=== PATIENT | male | born 2000 | race Caucasian/White ===

== ENCOUNTER 2023-06-14 22:58 | Emergency (ER) | payer OTHER, SELFPAY ==
[2023-06-14] VITALS (10 sets, daily range): BP systolic 136–146; BP diastolic 78–93; PULSE 62–99; RESP 13–19; TEMP 36.8; O2SAT 98–100; BMI 26.6
--- NOTE | 2023-06-14 23:22 | ED_ITS ---
HPI - Dizziness General Chief Complaint: Dizziness Stated Complaint: DIZZY ABD PAIN Time Seen by Provider: 06/14/23 23:14 Source: patient Mode of arrival: walk-in Limitations: no limitations History of Present Illness HPI Narrative: patient states in 2019 he loss vision. Was seen at [facility] in [place] and required surgery . States there was extra fluid in his brain and a procedure was performed involving his ventricles. Has no PCP. States he has been experiencing episodes of black out with vision loss and even fainting. States tonight episode of vertigo while at work. States job advised him to be evaluated. He drove here from work. He is less dizzy now. No headache or chest pain. States he now also has a migraine MD elicited complaint: Reports dizziness Related Data Home Medications Medication Instructions Recorded Confirmed No Known Home Medications 06/14/23 06/14/23 Allergies Allergy/AdvReac Type Severity Reaction Status Date / Time No Known Drug Allergies Allergy Verified 06/14/23 23:03 Review of Systems ROS Status of ROS 10 or more systems reviewed and unremarkable except as noted in history and below Exam Constitutional Vital Signs, click to edit/add: Last Vital Signs Temp 98.3 F 06/14/23 23:03 Pulse 62 06/14/23 23:50 Resp 19 06/14/23 23:50 BP 126/72 06/15/23 01:32 Pulse Ox 98 06/15/23 01:32 O2 Del Method Room Air 06/14/23 23:03 Common normals: no apparent distress, average body habitus, oriented x3, no limitations, healthy appearing, alert and well nourished Eye Common normals: PERRL, EOMs intact bilaterally and conjunctivae normal Respiratory Common normals: normal respiratory effort, no retractions, no use of accessory muscles and clear to auscultation bilaterally Cardio Common normals: regular rate, regular rhythm, S1 normal heart sound and S2 normal heart sound Extremity Common normals: normal to inspection and full ROM Neuro Common normals: oriented x3, CN's II-XII intact bilaterally, moves all extremities, no focal motor deficits and no sensory deficits noted Psych Appearance: grossly normal Course Vital Signs Vital signs: Vital Signs Temperature 98.3 F 06/14/23 23:03 Pulse Rate 75 06/14/23 23:03 Respiratory Rate 17 06/14/23 23:03 Blood Pressure 146/93 H 06/14/23 23:03 Pulse Oximetry 100 06/14/23 23:03 Oxygen Delivery Method Room Air 06/14/23 23:03 Temperature 98.3 F 06/14/23 23:03 Pulse Rate 62 06/14/23 23:50 Respiratory Rate 19 06/14/23 23:50 Blood Pressure 126/72 06/15/23 01:32 Pulse Oximetry 98 06/15/23 01:32 Oxygen Delivery Method Room Air 06/14/23 23:03 MDM - Dizziness MDM Narrative Medical decision making narrative: patient describes episodes of black out and fainting. normal EKG. He describes loosing vision 2019 require surgical procedure to his brain to remove fluid. History of episodes of vertigo on and off over the past few weeks. Vertigo again tonight and left work to come to the ER. Admits vertigo better now that he is here but he also has a migraine. exam neg. CT brain with evidence of mild enlargement of lateral and 3rd ventricles. Radiologist recommends nonemergent MRI brain. Patient also found to have hypomagnesemia. Magnesium supplemented. Vertigo resolved spontaneously. Patient given a prescription for antivert and discharged. Advised to follow up with Neurology Lab Data Labs: Lab Results 06/14/23 06/15/23 Range/Units 23:08 00:07 WBC 5.7 (4.0-11.0) 10^3/uL RBC 4.76 (4.70-6.10) 10^6/uL Hgb 14.3 (14.0-18.0) g/dL Hct 41.1 L (42.0-54.0) % MCV 86.3 (80.0-94.0) fL MCH 30.0 (25.9-34.0) pg MCHC 34.8 (29.9-35.2) g/dL RDW 12.3 (11.0-15.0) % Plt Count 192 (150-450) 10^3/uL MPV 9.6 (9.5-13.5) fL Neut % (Auto) 65.6 (43.0-75.0) % Lymph % (Auto) 26.0 (20.5-60.0) % [place] % (Auto) 4.7 (1.7-12.0) % Eos % (Auto) 2.8 (0.9-7.0) % Baso % (Auto) 0.7 (0.2-2.0) % Neut # (Auto) 3.8 (1.4-6.5) 10^3/uL Lymph # (Auto) 1.5 (1.2-3.8) 10^3/uL [place] # (Auto) 0.3 (0.3-0.8) 10^3/uL Eos # (Auto) 0.2 (0.0-0.7) 10^3/uL Baso # (Auto) 0.0 (0.0-0.1) 10^3/uL Abs Immat Gran (auto) 0.01 (0.00-0.03) 10^3/uL Imm/Tot Granulo (auto) 0.2 (0.0-0.5) % Sodium 139 (136-145) mmol/L Potassium 4.1 (3.5-5.1) mmol/L Chloride 104 (98-107) mmol/L Carbon Dioxide 28.6 (21.0-32.0) mmol/L Anion Gap 10.5 BUN 13.0 (7.0-18.0) mg/dL Creatinine 1.03 (0.70-1.30) mg/dL Est GFR ( Amer) >60 (>=60) Est GFR (Non-Af Amer) >60 (>=60) BUN/Creatinine Ratio 12.6 Glucose 91 (74-106) mg/dL Calcium 8.9 (8.5-10.1) mg/dL Magnesium 1.7 L (1.8-2.4) mg/dL Total Bilirubin 1.2 H (0.2-1.0) mg/dL AST 15 (15-37) U/L ALT 28 (16-63) U/L Alkaline Phosphatase 49 (46-116) U/L Total Protein 7.5 (6.4-8.2) g/dL Albumin 4.1 (3.4-5.0) g/dL Globulin 3.4 g/dL Albumin/Globulin Ratio 1.2 Urine Color Lt. yellow (YELLOW) Urine Clarity Clear (CLEAR) Urine pH 7.0 (5.0-9.0) Ur Specific [place] 1.020 (1.005-1.025) Urine Protein Negative (NEG/TRACE) mg/dL Urine Glucose (UA) Negative (NEGATIVE) mg/dL Urine Ketones Negative (NEGATIVE) mg/dL Urine Occult Blood Negative (NEGATIVE) Urine Nitrite Negative (NEGATIVE) Urine Bilirubin Negative (NEGATIVE) Urine Urobilinogen 0.2 (0.2-1.0) EU/dL Ur Leukocyte Esterase Negative (NEGATIVE) Urine Opiates Screen Negative (NEGATIVE) Ur Buprenorphine Scrn Negative (NEGATIVE) Ur Oxycodone Screen Negative (NEGATIVE) Urine Methadone Screen Negative (NEGATIVE) Ur Barbiturates Screen Negative (NEGATIVE) U Tricyclic Antidepress Negative (NEGATIVE) Ur Phencyclidine Scrn Negative (NEGATIVE) Ur Amphetamines Screen Negative (NEGATIVE) U Methamphetamines Scrn Negative (NEGATIVE) U Benzodiazepines Scrn Negative (NEGATIVE) Urine Cocaine Screen Negative (NEGATIVE) U Cannabinoids Screen Positive A (NEGATIVE) Imaging Data CT scan - head: Radiologist's impression: The [address] [address] Patient Name: KALA WATTERS MRN: [facility]:[id number] date: 2000 Sex: M Assigned Patient Location: Current Patient Location: Accession/Order Number: [id number] Exam Date: 06/14/2023 23:55 Report Date: 06/15/2023 00:07 At the request of: GARLAND VALDEZ Procedure: CT head/brain wo con INDICATION: 23 years old; Male. Memory difficulties for one week. TECHNIQUE: CT Head (ax/cor/sag reformats). Ionizing radiation dose reduced via iterative reconstruction/FBP blend and body size kV/mA adjustment. Comparison: None FINDINGS: POSTOPERATIVE CHANGES: None. BRAIN PARENCHYMA: No focal lesions. No mass effect. No midline shift or herniation. No intraparenchymal or extra-axial hemorrhage. Normal kat/white differentiation. There is a linear focus of CSF density which extends from the frontal horn of the right lateral ventricle into the subcortical white matter of the right frontal lobe. This is nonspecific. This has a developmental appearance. VENTRICLES/EXTRA-AXIAL SPACES: The lateral and third ventricles are enlarged out of proportion the size the cortical sulci. No transependymal spread of CSF is seen. This is a nonspecific finding. Cortical sulci aren't normal in size. Basilar cisterns are normal in size. SINUSES/MASTOIDS: The visualized sinuses are clear. The sinuses are not entirely visible in this routine CT of the head. Mastoids and middle ears are clear. MSK: No displaced or depressed calvarial fracture. OTHER: No hyperdense intraluminal thrombus. CT/CT head/brain wo con IMPRESSION: 1. No acute intracranial abnormality. No hemorrhage or mass effect. 2. Linear focus of CSF density in the subcortical white matter on the right frontal lobe extending down to the frontal horn of the right lateral ventricle. This has a developmental appearance. The lateral and third ventricles are enlarged out of proportion to the cortical sulci which is a nonspecific finding. Consider nonemergent follow-up with MRI. Electronically authenticated by: MARTIN MURDOCK Date: 06/15/2023 00:07 Dictated By: Martin Murdock M.D. Signed By: Discharge Plan Discharge Chief Complaint: Dizziness Clinical Impression: Benign paroxysmal positional vertigo, Hypomagnesemia Patient Disposition: Home, Self-Care Prescriptions / Home Meds: No Action No Known Home Medications Instructions: Vertigo (ED), Hypomagnesemia (ED) Additional Instructions: follow up with Neurology Stand Alone Forms: Portal Instructions Referrals: Physician,Non-Staff, MD [Primary Care Provider] - 1 week Discharge Date/Time: 06/15/23 01:37
[2023-06-14 23:26] LABS: Basophils Percent Auto 0.7 % (0.2-2.0); Eosinophils Absolute Auto 0.2 10^3/uL (0.0-0.7); Eosinophils Percent Auto 2.8 % (0.9-7.0); Hematocrit 41.1 % (42.0-54.0); Hemoglobin 14.3 g/dL (14.0-18.0); Immature Granulocytes Abs Auto 0.01 10^3/uL (0.00-0.03); Immature Granulocytes Pct Auto 0.2 % (0.0-0.5); Lymphocytes Absolute Auto 1.5 10^3/uL (1.2-3.8); Mean Corpuscular HGB Conc 34.8 g/dL (29.9-35.2); Mean Corpuscular Volume 86.3 fL (80.0-94.0); Mean Platelet Volume 9.6 fL (9.5-13.5); Monocytes Absolute Auto 0.3 10^3/uL (0.3-0.8); Monocytes Percent Auto 4.7 % (1.7-12.0); Neutrophils Absolute Auto 3.8 10^3/uL (1.4-6.5); Neutrophils Percent Auto 65.6 % (43.0-75.0); Platelet Count 192 10^3/uL (150-450); Red Blood Count 4.76 10^6/uL (4.70-6.10); Red Cell Distribution Width 12.3 % (11.0-15.0); White Blood Count 5.7 10^3/uL (4.0-11.0)
--- NOTE | 2023-06-14 23:30 | ECG_ITS ---
[facility] Test Date: 2023-06-14 Pat Name: KALA WATTERS Department: Room: - Gender: Male Cardiology Rn: : 2000 Requested By: Order Number: [id number] Reading MD: CHELO VIDAL Measurements Intervals [place] Rate: 73 P: 45 WV: 134 QRS: 82 QRSD: 76 T: 76 QT: 346 QTc: 373 Interpretive Statements 1100 Sinus rhythm 1102 Sinus arrhythmia 9110 normal ECG No previous ECG available for comparison Electronically Signed On 06-16-2023 7:06:52 EST by CHELO VIDAL
[2023-06-14] MEDS: 0.9 % SODIUM CHLORIDE 1,000 ML 999 ML IV (23:36)
[2023-06-14 23:37] LABS: Alanine Aminotransferase 28 U/L (16-63); Albumin Globulin Ratio 1.2; Albumin Level 4.1 g/dL (3.4-5.0); Alkaline Phosphatase 49 U/L (46-116); Anion Gap 10.5; Aspartate Amino Transferase 15 U/L (15-37); BUN Creatinine Ratio 12.6; Bilirubin Total 1.2 mg/dL (0.2-1.0); Calcium 8.9 mg/dL (8.5-10.1); Carbon Dioxide 28.6 mmol/L (21.0-32.0); Chloride 104 mmol/L (98-107); Estimated GFR (African America >60 (>=60); Estimated GFR (Non-African Ame >60 (>=60); Globulin 3.4 g/dL; Glucose 91 mg/dL (74-106); Potassium 4.1 mmol/L (3.5-5.1); Sodium 139 mmol/L (136-145); Total Protein 7.5 g/dL (6.4-8.2)
[2023-06-14 23:46] LABS: Magnesium 1.7 mg/dL (1.8-2.4)
[2023-06-15 00:20] LABS: Bilirubin Urine NEGATIVE (NEGATIVE); Blood Urine NEGATIVE (NEGATIVE); Clarity Urine CLEAR (CLEAR); Color Urine LT. YELLOW (YELLOW); Glucose Urine UA NEGATIVE (NEGATIVE); Ketones Urine NEGATIVE (NEGATIVE); Leukocyte Esterase Urine NEGATIVE (NEGATIVE); Nitrite Urine NEGATIVE (NEGATIVE); Protein Urine NEGATIVE (NEG/TRACE); Urine Microscopic Indicated NO; Urobilinogen Urine 0.2 EU/dL (0.2-1.0)
[2023-06-15 00:28] LABS: Amphetamine Screen Urine NEGATIVE (NEGATIVE); Barbiturates Screen Urine NEGATIVE (NEGATIVE); Benzodiazepines Screen Urine NEGATIVE (NEGATIVE); Buprenorphine Screen Urine NEGATIVE (NEGATIVE); Cannabinoid Screen Urine POSITIVE (NEGATIVE); Cocaine Screen Urine NEGATIVE (NEGATIVE); Methadone Screen Urine NEGATIVE (NEGATIVE); Methamphetamines Screen Urine NEGATIVE (NEGATIVE); Opiate Screen Urine NEGATIVE (NEGATIVE); Oxycodone Screen Urine NEGATIVE (NEGATIVE); Phencyclidine Screen Urine NEGATIVE (NEGATIVE); Tricyclic Antidepressant Urine NEGATIVE (NEGATIVE)
[2023-06-15] MEDS: MAGNESIUM SULFATE IN WATER 2 GM/50 ML PREMIX IV (00:41)
[2023-06-15 01:32] VITALS: BP 126/72; O2SAT 98
--- OUTSIDE RECORDS SUMMARY | 2023-07-21 17:04 | XMS_ITS | CCD ---
Author Name Unknown Address [address] [place] [address] Organization [facility] Care Team Providers Care Night Time Nanny Name Role Phone Unavailable Primary Care Provider UnavailGORGE Musa Attending Unavailable MARIELA DRAKE Attending Unavailable WILLIAM DEL CASTILLO Attending Unavailable AIDA MASTERS Attending Unavailable NO FAMILY, PHYSICIAN Primary Care Provider Unava MD Aida Sousa Emergency Provider Aida William Attending Unavailable Aida William Admitting Unavailable NO FAMILY, PHYSICIAN Primary Care Unavailable Medications Current Medications Medication Drug Class(es) Dates Sig (Normalized) Sig (Original) emtricitabine 200 mg / tenofovir disoproxil fumarate 300 mg oral tablet (4 sources) Human Immunodeficiency Virus Nucleoside Analog Reverse Transcriptase Inhibitor Start: 11-18-2021 take 1 tablet by mouth once daily Truvada 200-300 MG tablet Take 1 tablet by mouth daily. 0 11/18/2021 Active ondansetron 4 mg disintegrating oral tablet (5 sources) Serotonin-3 Receptor Antagonist Start: 12-10-2021 take 1 tablet by mouth every four hours as needed ondansetron (Zofran ODT) 4 MG Tab Dispersible tablet Take 1 tablet by mouth every 4 hours as needed for Nausea. 15 tablet 0 12/10/2021 Active Start: 12-10-2021 End: 12-10-2021 ondansetron 4mg/2ml (ZOFRAN) injection 4 mg Completed/Discontinued Medications Medication Drug Class(es) Dates Sig (Normalized) Sig (Original) 1 ml diphenhydrAMINE hydrochloride 50 mg/ml cartridge (1 source) Histamine-1 Receptor Antagonist Start: 12-10-2021 End: 12-10-2021 diphenhydrAMINE (BENADRYL) injection 25 mg Start: 12-10-2021 End: 12-10-2021 diphenhydrAMINE (BENADRYL) i njection 25 mg 2 ml metoclopramide 5 mg/ml prefilled syringe (1 source) Dopamine-2 Receptor Antagonist Start: 12-10-2021 End: 12-10-2021 metoclopramide (REGLAN) injection 10 mg Start: 12-10-2021 End: 12-10-2021 metoclopramide (REGLAN) inje ction 10 mg 250 ml sodium chloride 9 mg/ ml injection (2 sources) Start: 12-10-2021 End: 12-10-2021 sodium chloride 0.9% IV solution 500 mL Problems Active Problems Problem Classification Problem Date Documented Da te Episodic/Chronic Headache; including migraine (2 sources) Migraine; Translations: [Migraine, unspecified, not intractable, without status migrainosus] Onset: 05-13-2023 05-13-2023 Chronic Other injuries and conditions due to external causes (1 source) Injury of right foot; Translations: [Unspecified injury of right foot, subsequent encounter] Episodic Other injuries and conditions due to external causes (2 sources) Unspecified injury of right foot, subsequent encounter; Translations: [Unspecified injury of right foot, subsequent encounter] Onset: 05-13-2022 Episodic Sprains and strains (12 sources) Sprain of right wrist; Translations: [Unspecified sprain of right wrist, initial encounter] Onset: 12-13-2021 Episodic Past or Other Problems Problem Classification Problem Date Documented Date Episodic/Chronic Noninfectious gastroenteritis (3 sources) Gastroenteritis; Translations: [Noninfective gastroenteritis and colitis, unspecified] Onset: 12-10-2021 Episodic Unclassified (1 source) Onset: 05-09-2022 05-09-2022 Results Test Name Value Interpretation Reference Range Facil ity CT ANKLE RIGHT WITHOUT CONTR Flavio 05-09-2022 CT ANKLE RIGHT WITHOUT CONTRAST EXAMINATION: CT ANKLE RIGHT WITHOUT CONTRAST HISTORY: Pain COMPARISON: Plain radiograph same date TECHNIQUE: Helical CT images of the left ankle were obtained without contrast Dose reduction techniques were achieved by using automated exposure control and/or adjustment of mA and/or kV according to patient size and/or use of iterative reconstruction technique. FINDINGS: No acute displaced fracture identified in the ankle, specifically, no calcaneal fracture identified. The tibiotalar joint is congruent. Subtalar joints congruent. The midfoot is congruent. Lisfranc joint is intact on this nonweightbearing study. Soft tissues are unremarkable. IMPRESSION: No acute osseous abnormality. Normal [facility] CT Ankle - right WO contrast on 05-09-2022 IMPRESSION: No acute osseous abnormality. RADIOLOGY EXAMINATION: CT ANKL E RIGHT WITHOUT CONTRAST HISTORY: Pain COMPARISON: Plain radiograph same date TECHNIQUE: Helical CT images of the left ankle were obtained without contrast Dose reduction techniques were achieved by using automated exposure control and/or adjustment of mA and/or kV according to patient size and/or use of iterative reconstruction technique. FINDINGS: No acute displaced fracture identified in the ankle, specifically, no calcaneal fracture identified. The tibiotalar joint is congruent. Subtalar joints congruent. The midfoot is congruent. Lisfranc joint is intact on this nonweightbearing study. Soft tissues are unremarkable. RADIOLOGY Orlando Ceja M D - 05/09/2022 EXAMINATION: CT ANKLE RIGHT WITHOUT CONTRAST HISTORY: Pain COMPARISON: Plain radiograph same date TECHNIQUE: Helical CT images of the left ankle were obtained without contrast Dose reduction techniques were achieved by using automated exposure control and/or adjustment of mA and/or kV according to patient size and/or use of iterative reconstruction technique. FINDINGS: No acute displaced fracture identified in the ankle, specifically, no calcaneal fracture identified. The tibiotalar joint is congruent. Subtalar joints congruent. The midfoot is congruent. Lisfranc joint is intact on this nonweightbearing study. Soft tissues are unremarkable. IMPRESSION IMPRESSION: No acute osseous abnormality. [facility] Rad[facility] Study observation (narrative) [facility] Ankle - right WO contrast Ordered By: Orlando Ceja on 05-09-2022 [facility] Work Phone: No Panel Informationon 05-09 IMPRESSION: Subtle vertically oriented lucency along the anterior process of the calcaneus which may represent nondisplaced fracture versus trabecular pattern or nutrient foramen. Recommend further evaluation with CT of the ankle. Soft tissue swelling about the midfoot. RADIOLOGY EXAMINATION: XR ANKL E RIGHT 3+ VIEWS, XR FOOT RIGHT 3 VIEWS, 05/09/2022 11:05 AM CDT INDICATION: pain TECHNIQUE: 3 Views of the right ankle and 3 views of the right foot COMPARISON(S): None available FINDINGS: Soft tissue swelling about the midfoot. Subtle vertically oriented lucency along the anterior process of the calcaneus. Mortise is congruent. Talar dome is intact. Joint spaces are maintained. No erosions. Normal bone mineralization. No ankle joint effusion. No radiopaque foreign body. RADIOLOGY Ghulam Aguilar MD - 05/09/2022 EXAMINATION: XR ANKLE RIGHT 3+ VIEWS, XR FOOT RIGHT 3 VIEWS, 05/09/2022 11:05 AM CDT INDICATION: pain TECHNIQUE: 3 Views of the right ankle and 3 views of the right foot COMPARISON(S): None available FINDINGS: Soft tissue swelling about the midfoot. Subtle vertically oriented lucency along the anterior process of the calcaneus. Mortise is congruent. Talar dome is intact. Joint spaces are maintained. No erosions. Normal bone mineralization. No ankle joint effusion. No radiopaque foreign body. IMPRESSION IMPRESSION: Subtle vertically oriented lucency along the anterior process of the calcaneus which may represent nondisplaced fracture versus trabecular pattern or nutrient foramen. Recommend further evaluation with CT of the ankle. Soft tissue swelling about the midfoot. [employer] No Panel InformationOrdered By: Ghulam Aguilar on 05-09-2022 [facility] Work Phone: XR ANKLE RIGHT 3+ VIEWSon XR ANKLE RIGHT 3+ VIEWS EXAMINATION: XR ANKLE RIGHT 3+ VIEWS, XR FOOT RIGHT 3 VIEWS, 05/09/2022 11:05 AM CDT INDICATION: pain TECHNIQUE: 3 Views of the right ankle and 3 views of the right foot COMPARISON(S): None available FINDINGS: Soft tissue swelling about the midfoot. Subtle vertically oriented lucency along the anterior process of the calcaneus. Mortise is congruent. Talar dome is intact. Joint spaces are maintained. No erosions. Normal bone mineralization. No ankle joint effusion. No radiopaque foreign body. IMPRESSION: Subtle vertically oriented lucency along the anterior process of the calcaneus which may represent nondisplaced fracture versus trabecular pattern or nutrient foramen. Recommend further evaluation with CT of the ankle. Soft tissue swelling about the midfoot. Normal [facility] XR Ankle - right 3 Viewson 1 Radiology Study observation (narrative) [facility] XR FOOT RIGHT 3 VIEWSon - XR FOOT RIGHT 3 VIEWS EXAMINATION: XR AN KLE RIGHT 3+ VIEWS, XR FOOT RIGHT 3 VIEWS, 05/09/2022 11:05 AM CDT INDICATION: pain TECHNIQUE: 3 Views of the right ankle and 3 views of the right foot COMPARISON(S): None available FINDINGS: Soft tissue swelling about the midfoot. Subtle vertically oriented lucency along the anterior process of the calcaneus. Mortise is congruent. Talar dome is intact. Joint spaces are maintained. No erosions. Normal bone mineralization. No ankle joint effusion. No radiopaque foreign body. IMPRESSION: Subtle vertically oriented lucency along the anterior process of the calcaneus which may represent nondisplaced fracture versus trabecular pattern or nutrient foramen. Recommend further evaluation with CT of the ankle. Soft tissue swelling about the midfoot. Normal [facility] XR Foot - right 3 Viewson Radiology Study observation (narrative) [facility] XR HAND RIGHT 3+ VIEWSon XR HAND RIGHT 3+ VIEWS EXAM: XR HAND RIG HT 3+ VIEWS HISTORY: hand pain COMPARISON: None. TECHNIQUE: X-ray FINDINGS: There is no fracture, dislocation, or other osseous abnormality. Joint spaces are preserved. No soft tissue calcifications. IMPRESSION: 1. Normal exam. Normal [facility] XR WRIST RIGHT 3 VIEWSon XR WRIST RIGHT 3 VIEWS EXAM: XR WRIST RI GHT 3 VIEWS HISTORY: right wrist pain COMPARISON: None. TECHNIQUE: X-ray FINDINGS: There is no fracture, dislocation, or other osseous abnormality. Joint spaces are preserved. No soft tissue calcifications. IMPRESSION: 1. Normal exam. Normal [facility] XR Hand - right 3 Viewson IMPRESSION: 1. Normal exam. RADIOLOGY EXAM: XR HAND RIGHT 3+ VIEWS HISTORY: hand pain COMPARISON: None. TECHNIQUE: X-ray FINDINGS: There is no fracture, dislocation, or other osseous abnormality. Joint spaces are preserved. No soft tissue calcifications. RADIOLOGY Vinicius Sheffield MD - 12/12/2021 EXAM: XR HAND RIGHT 3+ VIEWS HISTORY: hand pain COMPARISON: None. TECHNIQUE: X-ray FINDINGS: There is no fracture, dislocation, or other osseous abnormality. Joint spaces are preserved. No soft tissue calcifications. IMPRESSION IMPRESSION: 1. Normal exam. [facility] Radiology Study observation (narrative) [facility] tem XR Wrist - right 3 Viewson 0 12-12-2021 IMPRESSION: 1. Normal exam. RADIOLOGY EXAM: XR WRIST RIGHT 3 VIEWS HISTORY: right wrist pain COMPARISON: None. TECHNIQUE: X-ray FINDINGS: There is no fracture, dislocation, or other osseous abnormality. Joint spaces are preserved. No soft tissue calcifications. RADIOLOGY Vinicius Sheffield MD - 12/12/2021 EXAM: XR WRIST RIGHT 3 VIEWS HISTORY: right wrist pain COMPARISON: None. TECHNIQUE: X-ray FINDINGS: There is no fracture, dislocation, or other osseous abnormality. Joint spaces are preserved. No soft tissue calcifications. IMPRESSION IMPRESSION: 1. Normal exam. [facility] Radiology Study observation (narrative) [facility] XR Wrist - right 3 ViewsOrde red By: Vinicius Sheffield on 12-12-2021 [facility] Work Phone: ALCOHOLon 12-10-2021 Ethanol [Mass/Vol] mg/dL Normal 0-10 [facility] Comment on above: Result Comment: INTOXICATION >80 MG/DL FATAL >400 MG/DL ALCOHOL (ETHANOL),BLOODon Ethanol [Mass/Vol] mg/dL [facility] Comment on above: INTOXICATION >80 MG/DL FATAL >400 MG/DL CBCon 12-10-2021 ABSOLUTE BAS 0.0 10*3/uL Normal 0.0-0.2 [facility] ABSOLUTE EOS 0.20 10*3/uL Normal 0.0-0.7 [facility] ABSOLUTE NEUTROPHIL COUNT 3.7 10*3/uL Normal 1.4-6.5 [facility] Basophils/100 WBC (Bld) 0.4 % Normal 0.0-2.0 [facility] DTYPE AUTO DIFF Normal [facility] Eosinophils/100 WBC (Bld) 2.9 % Normal 0.0-11.0 [facility] Lymphocytes (Bld) [#/Vol] 0.80 10*3/uL Low 1.2-3.4 [facility] Lymphocytes/100 WBC (Bld) 16.4 % Low 20.0-55.0 [facility] Monocytes (Bld) [#/Vol] 0.5 10*3/uL Normal 0.0-0.7 [facility] Monocytes/100 WBC (Bld) 9.9 % Normal 0.0-10.0 [facility] Neutrophils/100 WBC (Bld) 70.4 % Normal 37.0-75.0 [facility] Erythrocyte distribution wid th (RBC) [Ratio] 12.9 % Normal 11.5-14.5 [facility] spital Hematocrit (Bld) [Volume fraction] 43.0 % Normal 42.0-52.0 [facility] spital Hemoglobin (Bld) [Mass/Vol] 15.0 g/dL Normal 14.0-18. 0 [facility] MCH (RBC) [Entitic mass] 29.5 pg Normal 26.0-35.0 [facility] MCHC (RBC) [Mass/Vol] 34.9 g/dL Normal 27.0-37.0 [facility] MCV (RBC) [Entitic vol] 84.5 fL Normal 80.0-100.0 [facility] Platelet mean volume (Bld) [Entitic vol] 7.3 fL Low 7.4-11.0 [facility] spital Platelets (Bld) [#/Vol] 147 10*3/uL Normal 130.0-400.0 [facility] RBC (Bld) [#/Vol] 5.10 10*6/uL Normal 4.0-6.1 [facility] WBC (Bld) [#/Vol] 5.2 10*3/uL Normal 3.6-11.0 [facility] CBC, EDIF, PLATELETon 2021 ABSOLUTE BASOPHIL COUNT 0.0 10*3/uL 0.0 - 0.2 1 0*3/uL [facility] Basophils/100 WBC (Bld) 0.4 % 0.0 - 2.0 % [facility] Differential cell count method Nom (Bld) AUTO DIFF % [facility] stem Eosinophils (Bld) [#/Vol] 0.20 10*3/uL 0.0 - 0. 7 10*3/uL [facility] Eosinophils/100 WBC (Bld) 2.9 % 0.0 - 11.0 % [facility] Erythrocyte distribution width (RBC) [Ratio] 12.9 % 11.5 - 14.5 % [facility] Hematocrit (Bld) [Volume fraction] 43.0 % 42.0 - 52.0 % [facility] tem Hemoglobin (Bld) [Mass/Vol] 15.0 g/dL [facility] Interpretation and review of laboratory results Abnormal [facility] Lymphocytes (Bld) [#/Vol] 0.80 10*3/uL Low 1.2 - 3. 4 10*3/uL [facility] Lymphocytes/100 WBC (Bld) 16.4 % Low 20.0 - 55. 0 % [facility] MCH (RBC) [Entitic mass] 29.5 pg 26.0 - 35.0 PG [facility] MCHC (RBC) [Mass/Vol] 34.9 g/dL [facility] MCV (RBC) [Entitic vol] 84.5 fL [facility] Monocytes (Bld) [#/Vol] 0.5 10*3/uL 0.0 - 0.7 1 0*3/uL [facility] Monocytes/100 WBC (Bld) 9.9 % 0.0 - 10.0 % [facility] Neutrophils (Bld) [#/Vol] 3.7 10*3/uL 1.4 - 6.5 10*3/uL [facility] Neutrophils/100 WBC (Bld) 70.4 % 37.0 - 75. 0 % [facility] Platelet mean volume (Bld) [Entitic vol] 7.3 fL Low [facility] tem Platelets (Bld) [#/Vol] 147 10*3/uL 130.0 - 400 .0 10*3/uL [facility] RBC (Bld) [#/Vol] 5.10 10*6/uL 4.0 - 6.1 10*6/u L [facility] WBC (Bld) [#/Vol] 5.2 10*3/uL 3.6 - 11.0 10*3/u L [facility] CHEM 7 FASTINGon 12-10-2021 Chloride [Moles/Vol] 106 mmol/L Normal 98-107 [facility] Comment on above: Result Comment: Plebrian pelayo note: Triglyceride levels of 600mg/dL or higher may positively bias chloride results by approximately 2.1 mmol CO2 [Moles/Vol] 25 mmol/L Normal 22-30 [facility] Creatinine [Mass/Vol] 0.77 mg/dL Normal 0.7-1.2 [facility] EST. GFR, 161 ml/min/1.73sq.m Normal [facility] EST. GFR,Non 133 ml/min/1.73sq.m Normal [facility] GFR Information Average GFR for 20-2 9 years old = 116. Normal [facility] Comment on above: Result Comment: Community Health Planning Director javon Kidney disease, GFR = <60. Kidney failure, GFR = <15. The GFR estimate is not adjusted for extreme body surface area or acute process, nor has it been validated for women or ethnic groups other than and . Glucose [Mass/Vol] 109 mg/dL High 70-100 [facility] Comment on above: Result Comment: NORMAL <100 mg/dL PREDIABETES 101-126 mg/dL DIABETES 126 mg/dL or higher Potassium [Moles/Vol] 3.6 mmol/L Normal 3.5-5.1 [facility] Sodium [Moles/Vol] 137 mmol/L Normal 137-145 [facility] Urea nitrogen [Mass/Vol] 11 mg/dL Normal 7-20 [facility] CHEM 7 (LYTES,BUN,CREA,GLUC) on 12-10-2021 Chloride [Moles/Vol] 106 mmol/L [facility] Comment on above: Please note: Triglyc eride levels of 600mg/dL or higher may positively bias chloride results by approximately 2.1 mmol CO2 [Moles/Vol] 25 mmol/L [facility] Creatinine [Mass/Vol] 0.77 mg/dL [facility] GFR COMMENT Average GFR for 20-29 years old = 116. [facility] Comment on above: Chronic Kidney disea se, GFR = <60. Kidney failure, GFR = <15. The GFR estimate is not adjusted for extreme body surface area or acute process, nor has it been validated for women or ethnic groups other than and . GFR/1.73 sq M.predicted among blacks MDRD (S/P/Bld) [Vol rate/Area] 161 mL/min/{1.73_m2} ml/min/1.73sq.m [facility] GFR/1.73 sq M.predicted among non-blacks MDRD (S/P/Bld) [Vol rate/Area] 133 mL/min/{1.73_m2} ml/min/1.73sq.m [facility] [employer] [facility] Glucose post fast [Mass/Vol] 109 mg/dL High [facility] Comment on above: NORMAL <100 mg/dL PREDIABETES 101-126 mg/dL DIABETES 126 mg/dL or higher Interpretation and review of laboratory results Abnormal [facility] Potassium [Moles/Vol] 3.6 mmol/L [facility] Sodium [Moles/Vol] 137 mmol/L [facility] Urea nitrogen [Mass/Vol] 11 mg/dL [facility] CT ABDOMEN/PELVIS WITHOUT CO NTRASTon 12-10-2021 CT ABDOMEN/PELVIS WITHOUT CONTRAST EXAMINATION: CT ABDOMEN/PELVIS WITHOUT CONTRAST, 12/10/2021 6:49 AM EDT HISTORY: Nausea, vomiting, diarrhea, weakness COMPARISON: Plain x-ray same day TECHNIQUE: CT scan of the abdomen and pelvis was performed without IV contrast. CT dose reduction technique was used, including Automated Exposure Control. FINDINGS: LUNG BASES: No visible pulmonary or pleural disease. LIVER: No enlargement, atrophy, abnormal density, or significant focal lesion. BILIARY: No dilatation or calcification. PANCREAS: No lesion, fluid collection, ductal dilatation, or atrophy. SPLEEN: No enlargement or focal lesion. ADRENALS: No mass or enlargement. KIDNEYS: No mass, obstruction, or calcification. BOWEL/MESENTERY: No visible mass, obstruction, or bowel wall thickening. AORTA/VASCULAR: No aneurysm or dissection. RETROPERITONEUM: No mass or adenopathy. LYMPH NODES: No adenopathy. URINARY BLADDER: No visible focal wall thickening, lesion, or calculus. PELVIC ORGANS: No visible mass. Pelvic organs appropriate for patient age. ABDOMINAL WALL: No mass or hernia. BONES: No bony lesion or fracture. OTHER: Negative. IMPRESSION: No acute abnormality Normal [facility] CT Abdomen and Pelvis WO con traston 12-10-2021 IMPRESSION: No acute abnormality RADIOLOGY EXAMINATION: CT ABDO MEN/PELVIS WITHOUT CONTRAST, 12/10/2021 6:49 AM EDT HISTORY: Nausea, vomiting, diarrhea, weakness COMPARISON: Plain x-ray same day TECHNIQUE: CT scan of the abdomen and pelvis was performed without IV contrast. CT dose reduction technique was used, including Automated Exposure Control. FINDINGS: LUNG BASES: No visible pulmonary or pleural disease. LIVER: No enlargement, atrophy, abnormal density, or significant focal lesion. BILIARY: No dilatation or calcification. PANCREAS: No lesion, fluid collection, ductal dilatation, or atrophy. SPLEEN: No enlargement or focal lesion. ADRENALS: No mass or enlargement. KIDNEYS: No mass, obstruction, or calcification. BOWEL/MESENTERY: No visible mass, obstruction, or bowel wall thickening. AORTA/VASCULAR: No aneurysm or dissection. RETROPERITONEUM: No mass or adenopathy. LYMPH NODES: No adenopathy. URINARY BLADDER: No visible focal wall thickening, lesion, or calculus. PELVIC ORGANS: No visible mass. Pelvic organs appropriate for patient age. ABDOMINAL WALL: No mass or hernia. BONES: No bony lesion or fracture. OTHER: Negative. RADIOLOGY David Avendano MD - 12/10/2021 EXAMINATION: CT ABDOMEN/PELVIS WITHOUT CONTRAST, 12/10/2021 6:49 AM EDT HISTORY: Nausea, vomiting, diarrhea, weakness COMPARISON: Plain x-ray same day TECHNIQUE: CT scan of the abdomen and pelvis was performed without IV contrast. CT dose reduction technique was used, including Automated Exposure Control. FINDINGS: LUNG BASES: No visible pulmonary or pleural disease. LIVER: No enlargement, atrophy, abnormal density, or significant focal lesion. BILIARY: No dilatation or calcification. PANCREAS: No lesion, fluid collection, ductal dilatation, or atrophy. SPLEEN: No enlargement or focal lesion. ADRENALS: No mass or enlargement. KIDNEYS: No mass, obstruction, or calcification. BOWEL/MESENTERY: No visible mass, obstruction, or bowel wall thickening. AORTA/VASCULAR: No aneurysm or dissection. RETROPERITONEUM: No mass or adenopathy. LYMPH NODES: No adenopathy. URINARY BLADDER: No visible focal wall thickening, lesion, or calculus. PELVIC ORGANS: No visible mass. Pelvic organs appropriate for patient age. ABDOMINAL WALL: No mass or hernia. BONES: No bony lesion or fracture. OTHER: Negative. IMPRESSION IMPRESSION: No acute abnormality [facility] Radiology Study observation (narrative) [facility] tem CT Abdomen and Pelvis WO con trastOrdered By: David Murphy on 12-10-2021 [facility] Work Phone: HEPATIC FUNCTION PANELon Albumin [Mass/Vol] 4.0 g/dL [facility] ALP [Catalytic activity/Vol] 48 U/L [facility] ALT [Catalytic activity/Vol] 16 U/L <50 IU/ L [facility] AST [Catalytic activity/Vol] 24 U/L [facility] Bilirubin [Mass/Vol] 1.2 mg/dL [facility] Bilirubin.direct [Mass/Vol] 0.1 mg/dL [facility] Protein [Mass/Vol] 7.1 g/dL [facility] INFLUENZA A AND B, PCRon FLUAV and FLUBV Ag IF Nom (Unsp spec) Negative NEGATIVE [facility] FLUBV Ag IA Ql (Unsp spec) Negative NEGATIVE [facility] Comment on above: TESTING PERFORMED BY [facility] LACTATE, BLOODon 12-10-2021 Lactate [Moles/Vol] 0.8 mmol/L 0.7 - 2.0 mmol/L [facility] LACTATE,BLOODon 12-10-2021 Lactate [Moles/Vol] 0.8 mmol/L Normal 0.7-2.0 [facility] LIPASEon 12-10-2021 Lipase [Catalytic activity/Vol] 36 U/L 23 - 300 U/L [facility] LIPASE,SERUMon 12-10-2021 LIPASE,SERUM 36 U/L Normal 23-300 [facility] LIVER PANELon 12-10-2021 Albumin [Mass/Vol] 4.0 g/dL Normal 2.9-5.3 [facility] ALP [Catalytic activity/Vol] 48 U/L Normal 38-126 [facility] ALT [Catalytic activity/Vol] 16 U/L Normal <50 [facility] AST [Catalytic activity/Vol] 24 U/L Normal 17-59 [facility] Bilirubin [Mass/Vol] 1.2 mg/dL Normal 0.2-1.3 [facility] Bilirubin.indirect [Mass/Vol] 0.1 mg/dL Normal 0-0.4 [facility] Protein [Mass/Vol] 7.1 g/dL Normal 6.3-8.2 [facility] NOVEL CORONAVIRUSon 12-11-19 22 NARRATIVE This test was perfor med using isothermal PHONG and has been approved as Emergency Use Authorization (EUA) for the qualitative detection [id number] nucleic acid. Normal [facility] SARS-CoV-2 (COVID-19) RNA PHONG+probe Ql (Unsp spec) Not detected Normal NOT DETECTED [facility] Comment on above: Result Comment: Nega tive results do not preclude SARS-CoV-2 infection and should not be used as the sole basis for treatment or other patient management decisions. Optimum specimen types and timing for peak viral levels during infections caused by SARS-CoV-2 has not been determined. The possibility of a false negative result should especially be considered if the patient's recent exposures or clinical presentation suggest that SARS-CoV-2 infection is probable, and diagnostic tests for other causes of illness (e.g., other respiratory illness) are negative. Collection of a new specimen and re-testing may be necessary if the patient is critically ill or clinically deteriorating. NOVEL CORONAVIRUS LAB 1 - NA SOPHARYNGEALon 12-10-2021 NARRATIVE -1 This test was perfor med using isothermal PHONG and has been approved as Emergency Use Authorization (EUA) for the qualitative detection [id number] nucleic acid. [facility] SARS-CoV-2 (COVID-19) RNA PHONG+probe Ql (Unsp spec) Not detected NOT DETECTED [facility] tem Comment on above: Negative results do not preclude SARS-CoV-2 infection and should not be used as the sole basis for treatment or other patient management decisions. Optimum specimen types and timing for peak viral levels during infections caused by SARS-CoV-2 has not been determined. The possibility of a false negative result should especially be considered if the patient's recent exposures or clinical presentation suggest that SARS-CoV-2 infection is probable, and diagnostic tests for other causes of illness (e.g., other respiratory illness) are negative. Collection of a new specimen and re-testing may be necessary if the patient is critically ill or clinically deteriorating. [facility] No Panel Informationon 12-10 Interpretation and review of laboratory results Abnormal [facility] Portable XR Chest Views APon 12-10-2021 IMPRESSION: No radiographic evidence for acute chest abnormality. RADIOLOGY EXAM: XR CHEST AP PO RTABLE HISTORY: weakness COMPARISON: None available TECHNIQUE: Single frontal view chest x-ray FINDINGS: No lobar consolidation, large pleural effusions, pneumothorax, or acute bony abnormality. Cardiac size unremarkable. RADIOLOGY Luis Stevenson MD - 0 12/10/2021 EXAM: XR CHEST AP PORTABLE HISTORY: weakness COMPARISON: None available TECHNIQUE: Single frontal view chest x-ray FINDINGS: No lobar consolidation, large pleural effusions, pneumothorax, or acute bony abnormality. Cardiac size unremarkable. IMPRESSION IMPRESSION: No radiographic evidence for acute chest abnormality. [facility] Radiology Study observation (narrative) [facility] Portable XR Chest Views APOr dered By: Luis Stevenson on 12-10-2021 [facility] Work Phone: RAPID FLU Aon 12-10-2021 INFLUENZA A Negative Normal NEGATIVE [facility] INFLUENZA B Negative Normal NEGATIVE [facility] Comment on above: Result Comment: TEST ING PERFORMED BY PHONG RAPID TOX SCREEN,URINEon AMPHETAMINE Negative Normal NEGATIVE [facility] Comment on above: Result Comment: <500 ng/ml CUTOFF BARBITURATES Negative Normal NEGATIVE [facility] Comment on above: Result Comment: <200 ng/ml CUTOFF BENZODIAZEPINES Negative Normal NEGATIVE [facility] Comment on above: Result Comment: <150 ng/ml CUTOFF BUPRENORPHINE Negative Normal NEGATIVE [facility] Comment on above: Result Comment: <10 ng/ml CUTOFF CANNABINOIDS Positive Abnormal NEGATIVE [facility] Comment on above: Result Comment: <50 ng/ml CUTOFF *Unconfirmed Screening Result* Unconfirmed screening results are to be used only for medical treatment purposes. COCAINE Negative Normal NEGATIVE [facility] Comment on above: Result Comment: <150 ng/ml CUTOFF METHADONE Negative Normal NEGATIVE [facility] Comment on above: Result Comment: <200 ng/ml CUTOFF METHAMPHETAMINE Negative Normal NEGATIVE [facility] Comment on above: Result Comment: <500 ng/ml CUTOFF OPIATES Negative Normal NEGATIVE [facility] Comment on above: Result Comment: <100 ng/ml CUTOFF OXYCODONE Negative Normal NEGATIVE [facility] Comment on above: Result Comment: <100 ng/ml CUTOFF PHENCYCLIDINE Negative Normal NEGATIVE [facility] Comment on above: Result Comment: <25 ng/ml CUTOFF PROPOXYPHENE Negative Normal NEGATIVE [facility] Comment on above: Result Comment: <300 ng/ml CUTOFF TRICYCLIC ANTIDEPRESSANTS Negative Normal NEGATIVE [facility] Comment on above: Result Comment: <300 ng/ml CUTOFF TOXICOLOGY DRUG SCREEN, URIN Marcelino 12-10-2021 Amphetamine (U) [Mass/Vol] Negative NEGATIVE NG/ML [facility] Comment on above: <500 ng/ml CUTOFF Barbiturates Screen Ql (U) Negative NEGATIVE NG/ML [facility] Comment on above: <200 ng/ml CUTOFF Benzodiazepines Ql (U) Negative NEGATIVE NG/M L [facility] Comment on above: <150 ng/ml CUTOFF Benzoylecgonine Ql (U) Negative NEGATIVE NG/M L [facility] Comment on above: <150 ng/ml CUTOFF Buprenorphine Ql (U) Negative NEGATIVE NG/ML [facility] Comment on above: <10 ng/ml CUTOFF Cannabinoids Screen Ql (U) Positive Abnormal NEGATIVE NG/ML [facility] Comment on above: <50 ng/ml CUTOFF *Unconfirmed Screening Result* Unconfirmed screening results are to be used only for medical treatment purposes. Interpretation and review of laboratory results Abnormal [facility] and Plant [facility] tem Methadone Screen Ql (U) Negative NEGATIVE NG/ ML [facility] Comment on above: <200 ng/ml CUTOFF Methamphetamine (U) [Mass/Vol] Negative NEGAT ELISE NG/ML [facility] Comment on above: <500 ng/ml CUTOFF Opiates Screen Ql (U) Negative NEGATIVE NG/ML [facility] Comment on above: <100 ng/ml CUTOFF oxyCODONE Ql (U) Negative NEGATIVE NG/ML [facility] Comment on above: <100 ng/ml CUTOFF Phencyclidine Screen method >25 ng/mL Ql (U) Negative NEGATIVE NG/ML [facility] tem Comment on above: <25 ng/ml CUTOFF Propoxyphene+Norpropoxyphene Screen Ql (U) Negative NEGATIVE NG/ML [facility] Comment on above: <300 ng/ml CUTOFF Tricyclic antidepressants Screen Ql (U) Negative NEGATIVE NG/ML [facility] Comment on above: <300 ng/ml CUTOFF [facility] yste URINALYSIS, MACROon 12-11-19 22 Bilirubin Ql (U) Negative NEGATIVE [facility] Clarity (U) CLEAR CLEAR [facility] Color (U) YELLOW YELLOW [facility] yste Glucose Test strip (U) [Mass/Vol] Negative NEGATIVE mg/dl [facility] Hemoglobin Ql (U) Negative NEGATIVE [facility] Ketones (U) [Mass/Vol] TRACE Abnormal NEGATIVE mg/d l [facility] Leukocyte esterase Test stri p Ql (U) Negative NEGATIVE [facility] Nitrite Ql (U) Negative NEGATIVE [facility] pH (U) 6.0 [pH] [facility] ystem Protein Ql (U) TRACE Abnormal NEGATIVE mg/dl [facility] Specific gravity (U) [Rel density] >1.030 High [facility] Urobilinogen (U) [Mass/Vol] 1.0 mg/dL [facility] URINE MACROSCOPICon 12-11-19 22 Bilirubin Ql (U) Negative Normal NEGATIVE [facility] Clarity (U) CLEAR Normal CLEAR [facility] Color (U) YELLOW Normal YELLOW [facility] Glucose Ql (U) Negative Normal NEGATIVE [facility] pH (U) 6.0 [pH] Normal 5.0-7.0 [facility] URINE HEMOGLOBIN Negative Normal NEGATIVE [facility] URINE KETONE TRACE Abnormal NEGATIVE [facility] URINE LEUKOTEST Negative Normal NEGATIVE [facility] URINE NITRATES Negative Normal NEGATIVE [facility] URINE SPEC GRAVITY >1.030 High 1.010-1.025 [facility] URINE TOTAL PROTEIN TRACE Abnormal NEGATIVE [facility] Urobilinogen Qn (U) 1.0 {Saud'U}/dL Normal 0.2-1.0 [facility] URINE MICROSCOPICon 12-11-19 22 Bacteria LM.HPF (Urine sed) [#/Area] Negative Normal NEGATIVE [facility] CASTS NONE Normal NONE [facility] CRYSTAL NONE Normal NONE [facility] Epithelial cells LM Ql (Urine sed) NONE Normal [facility] Mucus Ql (Urine sed) 1+ Abnormal NEGATIVE [facility] URINE COMMENT CULTURE CRITERIA NOT MET, NO CULTURE PERFORMED. Normal [facility] URINE RBC'S 1 TO 5 Normal NEGATIVE [facility] URINE WBC'S Negative Normal NEGATIVE [facility] Bacteria LM.HPF (Urine sed) [#/Area] Negative NEGATIVE [facility] Casts LM.LPF (Urine sed) [#/Area] NONE NONE /LPF [facility] tem Crystals LM Nom (Urine sed) NONE NONE [facility] Epithelial cells LM Ql (Urine sed) NONE /HPF [facility] Mucus Ql (Urine sed) 1+ Abnormal NEGATIVE [facility] RBC LM.HPF (Urine sed) [#/Area] 1 TO 5 NEGATIVE /HPF [facility] Urine sediment comments LM Dillon (Urine sed) CULTURE CRITERIA NOT MET, NO CULTURE PERFORMED. [facility] WBC LM.HPF (Urine sed) [#/Area] Negative NEGATIVE /HPF [facility] XR CHEST AP PORTABLEon 12-10 XR CHEST AP PORTABLE EXAM: XR CHEST AP P ORTABLE HISTORY: weakness COMPARISON: None available TECHNIQUE: Single frontal view chest x-ray FINDINGS: No lobar consolidation, large pleural effusions, pneumothorax, or acute bony abnormality. Cardiac size unremarkable. IMPRESSION: No radiographic evidence for acute chest abnormality. Normal [facility] Vital Signs Date Time Vital Sign Value Performing Clinician Facility 05-13-2023 09:090400 Body height 165.1 cm PHYSICIAN ABDULAZIZ [facility] 05-13-2023 09:09-0400 Body temperature 98.4 [degF] PHYSICIAN NO [facility] 05-13-2023 09:09-0400 Body weight 74.45 kg PHYSICIAN NO [facility] 05-13-2023 09:09-0400 Diastolic blood pressure 94 mm[Hg] PHYSICIAN NO [facility] 05-13-2023 09:09-0400 Heart rate 64 /min PHYSICIAN NO [facility] 05-13-2023 09:09-0400 Respiratory rate 20 /min PHYSICIAN NO [facility] 05-13-2023 09:09-0400 SaO2% (BldA) [Mass fraction] 100 % PHYSICIAN NO [facility] 05-13-2023 09:09-0400 Systolic blood pressure 134 mm[Hg] PHYSICIAN NO [facility] 05-13-2022 15:12-0400 Diastolic blood pressure 76 mm[Hg] Mariela Drake MD Work Phone: [facility] 05-13-2022 15:12-0400 Heart rate 62 /min Mariela Drake MD Work Phone: [facility] 05-13-2022 15:12-0400 Respiratory rate 16 /min Mariela Drake MD Work Phone: [facility] 05-13-2022 15:12-0400 Systolic blood pressure 125 mm[Hg] Mariela Drake MD Work Phone: [facility] 05-13-2022 14:35-0400 Body height 165.1 cm Mariela Drake MD Work Phone: [facility] 05-13-2022 14:34-0400 Body temperature 98.4 [degF] Mariela Drake MD Work Phone: [facility] 05-13-2022 14:34-0400 SaO2% (BldA) [Mass fraction] 100 % Mariela Drake MD Work Phone: [facility] 05-09-2022 12:44-0400 Diastolic blood pressure 70 mm[Hg] William Del Castillo MD Work Phone: [facility] 05-09-2022 12:44-0400 Heart rate 50 /min William Del Castillo MD Work Phone: [facility] 05-09-2022 12:44-0400 SaO2% (BldA) [Mass fraction] 98 % William Del Castillo MD Work Phone: [facility] 05-09-2022 12:44-0400 Systolic blood pressure 124 mm[Hg] William Del Castillo MD Work Phone: [facility] 05-09-2022 11:51-0400 Body height 165.1 cm William Del Castillo MD Work Phone: [facility] 05-09-2022 11:40-0400 Body temperature 98.71 [degF] William Del Castillo MD Work Phone: [facility] 05-09-2022 11:40-0400 Respiratory rate 16 /min William Del Castillo MD Work Phone: [facility] 12-12-2021 23:57-0400 Diastolic blood pressure 67 mm[Hg] Aida Masters MD Work Phone: [facility] 12-12-2021 23:57-0400 Heart rate 74 /min Aida Masters MD Work Phone: [facility] 12-12-2021 23:57-0400 SaO2% (BldA) [Mass fraction] 96 % Aida Masters MD Work Phone: [facility] 12-12-2021 23:57-0400 Systolic blood pressure 109 mm[Hg] Aida Masters MD Work Phone: [facility] 12-12-2021 22:38-0400 Body temperature 98.4 [degF] Aida Masters MD Work Phone: [facility] 12-12-2021 22:38-0400 Respiratory rate 17 /min Aida Masters MD Work Phone: [facility] 12-10-2021 08:12-0400 Diastolic blood pressure 54 mm[Hg] Gorge Cleaning MD Work Phone: [facility] 12-10-2021 08:12-0400 Heart rate 76 /min Gorge Cleaning MD Work Phone: [facility] 12-10-2021 08:12-0400 Respiratory rate 18 /min Gorge Cleaning MD Work Phone: [facility] 12-10-2021 08:12-0400 SaO2% (BldA) [Mass fraction] 97 % Gorge Cleaning MD Work Phone: [facility] 12-10-2021 08:12-0400 Systolic blood pressure 101 mm[Hg] Gorge Cleaning MD Work Phone: [facility] 12-10-2021 05:18-0400 Body temperature 98.49 [degF] Gorge Cleaning MD Work Phone: [facility] Encounters Encounter Date Encounter Type Care Provider Facility Start: 05-13-2023 End: 05-13-2023 Emergency department patient visit PHYSICIAN ABDULAZIZ [facility] Work Phone: Start: 05-13-2022 End: 05-13-2022 Emergency department patient visit MARIELAElaine DRAKE [facility] Start: 05-13-2022 End: 05-13-2022 Emergency department patient visit Mariela Drake MD Work Phone: [facility] Start: 05-09-2022 End: 05-09-2022 Emergency department patient visit WILLIAM DEL CASTILLO [facility] Start: 05-09-2022 End: 05-09-2022 Emergency department patient visit William Del Castillo MD Work Phone: [facility] Start: 12-13-2021 End: 12-13-2021 Emergency department patient visit AIDA MASTERS [facility] Start: 12-12-2021 End: 12-13-2021 Emergency department patient visit Aida Masters MD Work Phone: [facility] Start: 12-10-2021 End: 12-10-2021 Emergency department patient visit GORGE CLEANING [facility] Start: 12-10-2021 End: 12-10-2021 Emergency department patient visit Gorge Cleaning MD Work Phone: [facility] Procedures Date Procedure Procedure Detail Performing Clinician Start: 05-09-2022 Ct lower extremity w /o contrast material William Del Castillo MD Work Phone: Start: 05-09-2022 End: 05-09-2022 Radex ankle complete minimum 3 views William Del Castillo MD Work Phone: Start: 12-12-2021 End: 12-12-2021 Radex hand minimum 3 views Aida Masters MD Work Phone: Start: 12-10-2021 Ct abdomen & pelvis w/o contrast material Gorge Cleaning MD Work Phone: Start: 12-10-2021 Urinalysis microscop ic only Gorge Cleaning MD Work Phone: Start: 12-10-2021 Urinalysis, reagent strip without microscopy Gorge Cleaning MD Work Phone: Start: 12-10-2021 Urine drug screening Il francisco j Cleaning MD Work Phone: Start: 12-10-2021 Iadna nos amplified probe tq each organism Gorge Cleaning MD Work Phone: Start: 12-10-2021 Quantitative PCR analysis Gorge Cleaning MD Work Phone: Start: 12-10-2021 Albumin serum plasma /whole blood Gorge Cleaning MD Work Phone: Start: 12-10-2021 Assay of ethanol Gorge Cleaning MD Work Phone: Start: 12-10-2021 Complete blood count with white cell differential, automated Gorge Cleaning MD Work Phone: Start: 12-10-2021 Radiologic exam ches t single view Gorge Cleaning MD Work Phone: Plan of Treatment Date Care Activity Detail Author Start: 03-31-2031 Tetanus vaccination TETANUS [facility] Start: 05-22-2022 End: 05-22-2022 Patient encounter procedure 05/22/2022 Office Visit Orthopaedics Luis Miguel MD [address] [place] [id number] [facility] Start: 04-03-2022 Influenza vaccination [facility] Start: 2013 HIV screening HIV SCREENING DISCUSSION [facility] Start: 2009 Vaccination for human papillomavirus HPV VACCINE ADOL (1 - Male 2-dose series) [facility] Start: 2004 PNEUMOCOCCAL VACCINE SERIES (1 - PCV) PNEUMOCOCCAL VACCINE SERIES (1 - PCV) [facility] Start: 2003 COVID-19 VACCINE (#1) COVID-19 VACCINE (#1) [facility] tem Start: 1998 COVID-19 VACCINE (#1) COVID-19 VACCINE (#1) [facility] tem Start: 1998 Hepatitis C antibody, confirmatory test HEPATITIS C VIRUS SCREENING [facility] Start: 1998 Hepatitis C screening HEPATITIS C VIRUS SCREENING [facility] Patient Education Migraines in adults [facility] Work Phone: Patient referral [facility] Work Phone: Immunizations Immunization Date Immunization Notes Care Provider Fa cility 03-31-2021 tetanus toxoid, redu gil diphtheria toxoid, and acellular pertussis vaccine, adsorbed Gorge Cleaning MD Work Phone: [facility] 05-21-2009 influenza virus vaccine, unspecified formulation Gorge Cleaning MD Work Phone: [facility] Payers Date Payer Category Payer Self-pay 2023 Unknown [id number] 2021 Unknown [employer] [place] [id number] 2021-Present [address] [place] [address] [id number] 2021 Unknown [id number] 1998 Unknown [id number] 1998 Unknown [id number] 1998 Unknown [id number] 1998 Unknown [id number] Unknown [id number] Social History Date Type Detail Facility Start: 03-31-2021 Tobacco smoking stat [facility] Smokes tobacco daily [facility] Start: 03-31-2021 Cigarettes smoked current (pack per day) - Reported 0.5 [facility] Start: 03-31-2021 Tobacco use and exposure Smokeless tobacco non-user [facility] Start: 12-10-2021 End: 05-13-2022 Alcohol intake Current drinker of alcohol (finding) [facility] Start: 03-31-2021 History SDOH Alcohol Comment occassional [facility] Start: 1998 Sex Assigned At Not on file A [facility] [employer] Start: 11-30-2021 End: 05-13-2022 Exposure to SARS-CoV-2 (event) Not sure [facility] History of tobacco use Cigarette Smoker A [facility] Start: 05-13-2023 Tobacco smoking stat [facility] Smoker (finding) [facility] Start: 1998 Sex Assigned At Male [facility] Clinical Notes 12-10-2021 to 05-13-2022 Yocasta Kim RN - 05/13/2022 3:11 PM Thomas Kim RN - 05/13/2022 3:11 PM Monisha Londono RN - 05/13/2022 2:36 PM EDTGiancarlo Londono RN - 05/13/2022 2:36 PM EDT Note Date & Type Note Facility 05-13-2022 Emergency department Note At bedside to discharge patient. All paperwork gone over. Denies any questions at this time. VSS, RR is regular and unlabored. Eola was steady on crutches. [facility] 05-13-2022 Emergency department Note At bedside to discharge patient. All paperwork gone over. Denies any questions at this time. VSS, RR is regular and unlabored. Eola was steady on crutches. To ED with report of right foot pain. No improvement since last visit. States aggravated by standing on it at work. One dose of ibuprofen this morning. Reiterated the importance of appropriate use of NSAIDS for pain relief. documented in this encounter [facility] 05-13-2022 Hospital Discharg e instructions Mariela Drake MD - 05/13/2022 3:01 PM EDT Follow up with orthopedic surgery. Return to ED if we can further assist you. documented in this encounter [facility] 05-13-2022 Emergency department Note To ED with report of right foot pain. No improvement since last visit. States aggravated by standing on it at work. One dose of ibuprofen this morning. Reiterated the importance of appropriate use of NSAIDS for pain relief. [facility] 05-09-2022 Emergency department Note Bedside to apply RUDI wrap and air cast. Tolerated well. Voices an understanding of wearing.Work note and discharge papers provided. Denies concerns/questions. Ambulates out of ED with slight limp, respirs even and unlabored. [facility] 05-09-2022 Emergency department Note Bedside to apply RUDI wrap and air cast. Tolerated well. Voices an understanding of wearing.Work note and discharge papers provided. Denies concerns/questions. Ambulates out of ED with slight limp, respirs even and unlabored. Images from the original note were not included. Emergency Department Report [facility] EM[facility]GENCY MEDIC[facility] Service Date:.05/09/22 PCP: No primary care provider on file. Chief Complaint: Chief Complaint Patient presents with Ankle Pain Right, fell off roof yesterday, denies head injury and LOC HPI Christiano Caicedo is a 22 y.o. male presents to the ED today due to Right ankle and foot pain. Patient states he slid off a roof yesterday working on sore panels. Is complaining of pain in the medial side of his ankle and the top of his right foot. There is no bruising. He is able to ambulate with some moderate discomfort. Denies any other injury. Review of Systems: Review of Systems Neurological: Negative for weakness. Hematological: Does not bruise/bleed easily. Past Medical History: No past medical history on file. Past Surgical History: No past surgical history on file. Allergies: No Known Allergies Medications: Patient's Medications New Prescriptions No medications on file Previous Medications ONDANSETRON (ZOFRAN ODT) 4 MG TAB DISPERSIBLE TABLET Take 1 tablet by mouth every 4 hours as needed for Nausea. TRUVADA 200-300 MG TABLET Take 1 tablet by mouth daily. Modified Medications No medications on file Discontinued Medications No medications on file Family History: History reviewed. No pertinent family history. Social History: Social History Socioeconomic History Marital status: Single Spouse name: Not on file Number of children: Not on file Years of education: Not on file Highest education level: Not on file Occupational History Not on file Tobacco Use Smoking status: Current Every Day Smoker Packs/day: 0.50 Smokeless tobacco: Never Used Vaping Use Vaping Use: Some days Substances: Nicotine, THC Substance and Sexual Activity Alcohol use: Yes Comment: occassional Drug use: Yes Types: Marijuana Sexual activity: Not on file Other Topics Concern Not on file Social History Narrative Not on file Social Determinants of Health Financial Resource Strain: Not on file Food Insecurity: Not on file Transportation Needs: Not on file Physical Activity: Not on file Stress: Not on file Social Connections: Not on file Intimate Partner Violence: Not on file Housing Stability: Not on file Physical Exam: Physical Exam Vitals and nursing note reviewed. Constitutional: Appearance: Normal appearance. Cardiovascular: Rate and Rhythm: Normal rate. Pulses: Normal pulses. Pulmonary: Effort: Pulmonary effort is normal. Musculoskeletal: Right ankle: Tenderness present over the medial malleolus. Right Achilles Tendon: Normal. Right foot: Bony tenderness present. No swelling or deformity. Feet: Skin: General: Skin is warm. Capillary Refill: Capillary refill takes less than 2 seconds. Neurological: General: No focal deficit present. Mental Status: He is alert. Vital Signs During ED Visit Patient Vitals for the past 24 hrs: BP Temp Temp src Pulse Resp SpO2 Height 05/09/22 1244 124/70 -- -- 50 -- 98 % -- 05/09/22 1151 -- -- -- -- -- -- 1.651 m (5' 5 ) 05/09/22 1140 150/73 98.7 F (37.1 C) Oral 75 16 98 % -- Orders/Results: Orders Placed This Encounter XR FOOT RIGHT 3 VIEWS XR ANKLE RIGHT 3+ VIEWS CT ANKLE RIGHT WITHOUT CONTRAST AMB REFERRAL TO GENERAL SURGERY Results for orders placed or performed during the hospital encounter of 12/10/21 [facility] 1 - NASOPHARYNGEAL Specimen: NASOPHARYNGEAL; Fluid/Swab Result Value Ref Range SARS COV 2 RNA, QL REAL TIME RT PCR NOT DETECTED NOT DETECTED NARRATIVE -1 This test was performed using isothermal PHONG and has been approved as Emergency Use Authorization (EUA) for the qualitative detection [id number] nucleic acid. CBC, EDIF, PLATELET Result Value Ref Range WBC (WHITE BLOOD COUNT) 5.2 3.6 - 11.0 10*3/uL RBC 5.10 4.0 - 6.1 10*6/uL HEMOGLOBIN (HGB) 15.0 14.0 - 18.0 G/DL HEMATOCRIT (HCT) 43.0 42.0 - 52.0 % MEAN CELL VOLUME 84.5 80.0 - 100.0 FL Mean Cell HGB 29.5 26.0 - 35.0 PG MEAN CELL HGB CONCENTRATION 34.9 27.0 - 37.0 G/DL RBC DISTRIBUTION 12.9 11.5 - 14.5 % PLATELET COUNT 147 130.0 - 400.0 10*3/uL MEAN PLATELET VOLUME 7.3 (L) 7.4 - 11.0 FL DIFFERENTIAL TYPE AUTO DIFF % NEUTROPHILS 70.4 37.0 - 75.0 % LYMPHOCYTE 16.4 (L) 20.0 - 55.0 % MONOCYTE % 9.9 0.0 - 10.0 % EOSINOPHIL % 2.9 0.0 - 11.0 % BASOPHIL % 0.4 0.0 - 2.0 % Absolute Neutrophil Count 3.7 1.4 - 6.5 10*3/uL LYMPHOCYTES, ABSOLUTE 0.80 (L) 1.2 - 3.4 10*3/uL MONOCYTES, ABSOLUTE 0.5 0.0 - 0.7 10*3/uL ABSOLUTE EOSINOPHIL COUNT 0.20 0.0 - 0.7 10*3/uL ABSOLUTE BASOPHIL COUNT 0.0 0.0 - 0.2 10*3/uL LACTATE, BLOOD Result Value Ref Range LACTATE 0.8 0.7 - 2.0 mmol/L HEPATIC FUNCTION PANEL Result Value Ref Range Albumin 4.0 2.9 - 5.3 G/DL BILIRUBIN, TOTAL 1.2 0.2 - 1.3 MG/DL ALKALINE PHOSPHATASE 48 38 - 126 IU/L AST 24 17 - 59 IU/L BILIRUBIN, DIRECT 0.1 0 - 0.4 MG/DL PROTEIN, TOTAL 7.1 6.3 - 8.2 GM/DL ALT 16 <50 IU/L CHEM 7 (LYTES,BUN,CREA,GLUC) Result Value Ref Range GLUCOSE 109 (H) 70 - 100 MG/DL BUN 11 7 - 20 MG/DL CREATININE SERUM 0.77 0.7 - 1.2 MG/DL SODIUM 137 137 - 145 MMOL/L POTASSIUM 3.6 3.5 - 5.1 MMOL/L CHLORIDE 106 98 - 107 MMOL/L CARBON DIOXIDE (CO2) 25 22 - 30 MMOL/L ESTIMATED GFR, NON AMER 133 ml/min/1.73sq.m ESTIMATED GFR, 161 ml/min/1.73sq.m GFR COMMENT Average GFR for 20-29 years old = 116. LIPASE Result Value Ref Range LIPASE 36 23 - 300 U/L ALCOHOL (ETHANOL),BLOOD Result Value Ref Range ALCOHOL, ETHYL, SERUM <10 0 - 10 MG/DL TOXICOLOGY DRUG SCREEN, URINE Result Value Ref Range CANNABINOIDS (MARIJUANA) POSITIVE (A) NEGATIVE NG/ML Phencyclidine, S/P, Screen NEGATIVE NEGATIVE NG/ML Cocaine Metabolite NEGATIVE NEGATIVE NG/ML Methamphetamine NEGATIVE NEGATIVE NG/ML Opiates NEGATIVE NEGATIVE NG/ML Amphetamine NEGATIVE NEGATIVE NG/ML Benzodiazepines NEGATIVE NEGATIVE NG/ML TRICYCLIC ANTIDEPRESSANTS SCREEN, URINE NEGATIVE NEGATIVE NG/ML Methadone NEGATIVE NEGATIVE NG/ML Barbiturate NEGATIVE NEGATIVE NG/ML Oxycodone NEGATIVE NEGATIVE NG/ML PROPOXYPHENE NEGATIVE NEGATIVE NG/ML Buprenorphine NEGATIVE NEGATIVE NG/ML INFLUENZA A AND B, PCR Result Value Ref Range INFLUENZA A NEGATIVE NEGATIVE INFLUENZA B NEGATIVE NEGATIVE URINALYSIS, MACRO Result Value Ref Range COLOR, URINE YELLOW YELLOW APPEARANCE, URINE CLEAR CLEAR Specific Allen, Urine >1.030 (H) 1.010 - 1.025 PH URINE 6.0 5.0 - 7.0 PROTEIN, URINE TRACE (A) NEGATIVE mg/dl GLUCOSE, URINE NEGATIVE NEGATIVE mg/dl KETONES, URINE TRACE (A) NEGATIVE mg/dl BILIRUBIN, URINE NEGATIVE NEGATIVE BLOOD, URINE DIPSTICK NEGATIVE NEGATIVE NITRITES, URINE NEGATIVE NEGATIVE UROBILINOGEN, URINE 1.0 0.2 - 1.0 E.U./dL LEUKOCYTE ESTERASE, URINE NEGATIVE NEGATIVE URINE MICROSCOPIC Result Value Ref Range WBC, URINE NEGATIVE NEGATIVE /HPF RBC, URINE 1 TO 5 NEGATIVE /HPF Epithelial Cells UA NONE /HPF Mucus 1+ (A) NEGATIVE BACTERIA, URINE NEGATIVE NEGATIVE CRYSTALS, URINE NONE NONE CASTS, URINE NONE NONE /LPF COMMENT, URINE CULTURE CRITERIA NOT MET, NO CULTURE PERFORMED. Radiographic Imaging CT ANKLE RIGHT WITHOUT CONTRAST Final Result IMPRESSION: No acute osseous abnormality. XR ANKLE RIGHT 3+ VIEWS Final Result IMPRESSION: Subtle vertically oriented lucency along the anterior process of the calcaneus which may represent nondisplaced fracture versus trabecular pattern or nutrient foramen. Recommend further evaluation with CT of the ankle. Soft tissue swelling about the midfoot. XR FOOT RIGHT 3 VIEWS Final Result IMPRESSION: Subtle vertically oriented lucency along the anterior process of the calcaneus which may represent nondisplaced fracture versus trabecular pattern or nutrient foramen. Recommend further evaluation with CT of the ankle. Soft tissue swelling about the midfoot. Procedures: Procedures Moderate Sedation Procedure: No ED Summary/MDM X-ray and CT films demonstrate a fracture. Patient was placed in a AirGel splint. He declined crutches follow-up with Dr. Miguel orthopedics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
== END 2023-06-15 01:37 | disposition home or self-care (01) ==
PROVIDERS: Emergency Provider Internal Medicine
DX: H81.10 Benign paroxysmal vertigo, unspecified ear (principal); E83.42 Hypomagnesemia
CPT/HCPCS: 36415; 70450; 80053; 80307; 81003; 83735; 85025; 93005; 96361; 96365; 99285

== ENCOUNTER 2023-07-06 10:23 | Outpatient (OUT) | payer OTHER, SELFPAY ==
[2023-07-06 10:49] LABS: Basophils Percent Auto 0.5 % (0.2-2.0); Eosinophils Absolute Auto 0.2 10^3/uL (0.0-0.7); Eosinophils Percent Auto 3.3 % (0.9-7.0); Hematocrit 40.9 % (42.0-54.0); Hemoglobin 14.1 g/dL (14.0-18.0); Lymphocytes Absolute Auto 2.4 10^3/uL (1.2-3.8); Lymphocytes Percent Auto 41.4 % (20.5-60.0); Mean Corpuscular HGB Conc 34.5 g/dL (29.9-35.2); Mean Corpuscular Hemoglobin 29.3 pg (25.9-34.0); Mean Corpuscular Volume 84.9 fL (80.0-94.0); Mean Platelet Volume 9.2 fL (9.5-13.5); Monocytes Absolute Auto 0.3 10^3/uL (0.3-0.8); Monocytes Percent Auto 4.9 % (1.7-12.0); Neutrophils Absolute Auto 2.9 10^3/uL (1.4-6.5); Neutrophils Percent Auto 49.9 % (43.0-75.0); Platelet Count 173 10^3/uL (150-450); Red Blood Count 4.82 10^6/uL (4.70-6.10); Red Cell Distribution Width 12.1 % (11.0-15.0); White Blood Count 5.8 10^3/uL (4.0-11.0)
[2023-07-06 11:24] LABS: Estimated Average Glucose 100 mg/dL; Glycohemoglobin A1C 5.1 % (4.5-6.2)
[2023-07-06 11:30] LABS: Alanine Aminotransferase 33 U/L (16-63); Albumin Globulin Ratio 1.3; Albumin Level 4.2 g/dL (3.4-5.0); Alkaline Phosphatase 46 U/L (46-116); Anion Gap 12.2; Aspartate Amino Transferase 15 U/L (15-37); BUN Creatinine Ratio 12.2; Bilirubin Total 1.7 mg/dL (0.2-1.0); Carbon Dioxide 29.2 mmol/L (21.0-32.0); Chloride 103 mmol/L (98-107); Chol HDL Ratio 3.2; Cholesterol 186 mg/dL (<=200); Estimated GFR (African America >60 (>=60); Estimated GFR (Non-African Ame >60 (>=60); Free T3 3.12 pg/mL (2.18-3.98); Globulin 3.2 g/dL; Glucose 87 mg/dL (74-106); HDL Cholesterol 58 mg/dL (40-60); LDL Cholesterol Calculated 109.4 mg/dL; Potassium 3.4 mmol/L (3.5-5.1); Sodium 141 mmol/L (136-145); Thyroid Stimulating Hormone 3.224 uIU/mL (0.358-3.740); Total Protein 7.4 g/dL (6.4-8.2); Triglycerides 93 mg/dL (<=150); VLDL CHOLESTEROL 18.6 mg/dL
[2023-07-07 13:10] LABS: Insulin 5.4 uIU/mL (2.6-24.9)
== END 2023-07-06 10:24 | disposition home or self-care (01) ==
LOC: LAB 10:28
PROVIDERS: Visit Provider Nurse Practitioner Family
DX: Z00.00 Encounter for general adult medical examination without abnormal findings (principal)
CPT/HCPCS: 36415; 80053; 80061; 83036; 83525; 84436; 84443; 84481; 85025

== ENCOUNTER 2023-08-23 02:31 | Emergency (ER) | payer OTHER, SELFPAY ==
[2023-08-23 02:34] VITALS: BP 153/85; PULSE 73; RESP 16; TEMP 37.1; O2SAT 100; BMI 29.1
--- OUTSIDE RECORDS SUMMARY | 2023-08-23 02:38 | XMS_ITS | CCD ---
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 IMPRESSION: No acute osseous abnormality. Normal [facility] CT Ankle - right WO contrast on 05-09-2022 IMPRESSION: No acute osseous abnormality. RADIOLOGY EXAMINATION: CT ANKLE RIGHT WITHOUT CONTRAST HISTORY: [...] Soft tissues are unremarkable. RADIOLOGY Orlando Ceja MD - 05/09/2022 EXAMINATION: CT ANKLE RIGHT WITHOUT [...] unremarkable. IMPRESSION IMPRESSION: No acute osseous abnormality. [facility] Radiology Study observation (narrative) [facility] CT Ankle - right WO contrast Ordered By: Orlando Ceja on 05-09-2022 [facility] Work Phone: No Panel Informationon 05-09 IMPRESSION: Subtle vertically oriented lucency along the anterior process of the calcaneus which may represent nondisplaced fracture versus trabecular pattern or nutrient foramen. Recommend further evaluation with CT of the ankle. Soft tissue swelling about the midfoot. RADIOLOGY EXAMINATION: XR ANKLE RIGHT 3+ VIEWS, XR [...] ankle. Soft tissue swelling about the midfoot. [facility] No Panel InformationOrdered By: Ghulam Aguilar on 05-09-2022 [facility] Work Phone: XR ANKLE RIGHT 3+ VIEWSon [...] Soft tissue swelling about the midfoot. Normal [facility] XR Ankle - right 3 Viewson 1 Radiology Study observation (narrative) [facility] FOOT RIGHT 3 VIEWSon 10- XR FOOT RIGHT 3 VIEWS EXAMINATION: XR ANKLE RIGHT 3+ VIEWS, [...] Soft tissue swelling about the midfoot. Normal [facility] XR Foot - right 3 [facility] Radiology Study observation (narrative) [facility] HAND RIGHT 3+ VIEWSon XR HAND RIGHT 3+ VIEWS EXAM: XR HAND RIG HT 3+ VIEWS HISTORY: hand pain COMPARISON: None. TECHNIQUE: X-ray FINDINGS: There is no fracture, dislocation, or other osseous abnormality. Joint spaces are preserved. No soft tissue calcifications. IMPRESSION: 1. Normal exam. Normal [facility] XR WRIST RIGHT 3 VIEWSon XR WRIST RIGHT 3 VIEWS EXAM: XR WRIST RIGHT 3 VIEWS HISTORY: right wrist pain COMPARISON: None. TECHNIQUE: X-ray FINDINGS: There is no fracture, dislocation, or other osseous abnormality. Joint spaces are preserved. No soft tissue calcifications. IMPRESSION: 1. Normal exam. Normal [facility] XR Hand - right 3 Viewson IMPRESSION: [...] tissue calcifications. IMPRESSION IMPRESSION: 1. Normal exam. [facility] Radiology Study observation (narrative) [facility] XR Wrist - right 3 Viewson 0 [...] tissue calcifications. IMPRESSION IMPRESSION: 1. Normal exam. [facility] Radiology Study observation (narrative) [facility] XR Wrist - right 3 ViewsOrde red By: Vinicius Sheffield on 12-12-2021 [facility] Work Phone: ALCOHOLon 12-10-2021 Ethanol [Mass/Vol] mg/dL Normal 0-10 [facility] Comment on above: Result Comment: INTOXICATION >80 MG/DL FATAL >400 MG/DL ALCOHOL (ETHANOL),BLOODon Ethanol [Mass/Vol] mg/dL [facility] Comment on above: INTOXICATION >80 MG/DL FATAL >400 MG/DL CBCon 12-10-2021 ABSOLUTE BAS 0.0 10*3/uL Normal 0.0-0.2 [facility] ABSOLUTE EOS 0.20 10*3/uL Normal 0.0-0.7 [facility] ABSOLUTE NEUTROPHIL COUNT 3.7 10*3/uL Normal 1.4-6.5 [facility] Basophils/100 WBC (Bld) 0.4 % Normal 0.0-2.0 [facility] DTYPE AUTO DIFF Normal [facility] Eosinophils/100 WBC (Bld) 2.9 % Normal 0.0-11.0 [facility] Lymphocytes (Bld) [#/Vol] 0.80 10*3/uL Low 1.2-3.4 [facility] Lymphocytes/100 WBC (Bld) 16.4 % Low 20.0-55.0 [facility] Monocytes (Bld) [#/Vol] 0.5 10*3/uL Normal 0.0-0.7 [facility] Monocytes/100 WBC (Bld) 9.9 % Normal 0.0-10.0 [facility] Neutrophils/100 WBC (Bld) 70.4 % Normal 37.0-75.0 [facility] Erythrocyte distribution width (RBC) [Ratio] 12.9 % Normal 11.5-14.5 [facility] Hematocrit (Bld) [Volume fraction] 43.0 % Normal 42.0-52.0 [facility] Hemoglobin (Bld) [Mass/Vol] 15.0 g/dL Normal 14.0-18.0 [facility] MCH (RBC) [Entitic mass] 29.5 pg Normal 26.0-35.0 [facility] MCHC (RBC) [Mass/Vol] 34.9 g/dL Normal 27.0-37.0 [facility] MCV (RBC) [Entitic vol] 84.5 fL Normal 80.0-100.0 [facility] Platelet mean volume (Bld) [Entitic vol] 7.3 fL Low 7.4-11.0 [facility] Platelets (Bld) [#/Vol] 147 10*3/uL Normal 130.0-400.0 [facility] RBC (Bld) [#/Vol] 5.10 10*6/uL Normal 4.0-6.1 [facility] WBC (Bld) [#/Vol] 5.2 10*3/uL Normal 3.6-11.0 [facility] CBC, EDIF, PLATELETon 2021 ABSOLUTE BASOPHIL COUNT 0.0 10*3/uL 0.0 - 0.2 10*3/uL [facility] Basophils/100 WBC (Bld) 0.4 % 0.0 - 2.0 % [facility] Differential cell count method Nom (Bld) AUTO DIFF % [facility] Eosinophils (Bld) [#/Vol] 0.20 10*3/uL 0.0 - 0.7 10*3/uL [facility] Eosinophils/100 WBC (Bld) 2.9 % 0.0 - 11.0 % [facility] Erythrocyte distribution width (RBC) [Ratio] 12.9 % 11.5 - 14.5 % [facility] Hematocrit (Bld) [Volume fraction] 43.0 % 42.0 - 52.0 % [facility] Hemoglobin (Bld) [Mass/Vol] 15.0 g/dL [facility] Interpretation and review of laboratory results Abnormal [facility] Lymphocytes (Bld) [#/Vol] 0.80 10*3/uL Low 1.2 - 3.4 10*3/uL [facility] Lymphocytes/100 WBC (Bld) 16.4 % Low 20.0 - 55.0 % [facility] MCH (RBC) [Entitic mass] 29.5 pg 26.0 - 35.0 PG [facility] MCHC (RBC) [Mass/Vol] 34.9 g/dL [facility] MCV (RBC) [Entitic vol] 84.5 fL A [facility] Monocytes (Bld) [#/Vol] 0.5 10*3/uL 0.0 - 0.7 10*3/uL [facility] Monocytes/100 WBC (Bld) 9.9 % 0.0 - 10.0 % [facility] Neutrophils (Bld) [#/Vol] 3.7 10*3/uL 1.4 - 6.5 10*3/uL [facility] Neutrophils/100 WBC (Bld) 70.4 % 37.0 - 75.0 % [facility] Platelet mean volume (Bld) [Entitic vol] 7.3 fL Low [facility] Platelets (Bld) [#/Vol] 147 10*3/uL 130. 0 - 400.0 10*3/uL [facility] RBC (Bld) [#/Vol] 5.10 10*6/uL 4.0 - 6.1 10*6/uL [facility] WBC (Bld) [#/Vol] 5.2 10*3/uL 3.6 - 11.0 10*3/uL [facility] CHEM 7 FASTINGon 12-10-2021 Chloride [Moles/Vol] 106 mmol/L Normal 98-107 [facility] Comment on above: Result Comment: Plea se note: Triglyceride levels of 600mg/dL or higher may positively bias chloride results by approximately 2.1 mmol CO2 [Moles/Vol] 25 mmol/L Normal 22-30 [facility] Creatinine [Mass/Vol] 0.77 mg/dL Normal 0.7-1.2 [facility] EST. GFR, 161 ml/min/1.73sq.m Normal [facility] EST. GFR,Non 133 ml/min/1.73sq.m [facility] GFR Information Average GFR for 20-29 years old = 116. Normal [facility] Comment on above: Result Comment: Perforator Typist javon Kidney disease, GFR = <60. Kidney failure, GFR = <15. The GFR estimate is not adjusted for extreme body surface area or acute process, nor has it been validated for women or ethnic groups other than and . Glucose [Mass/Vol] 109 mg/dL High 70-100 [facility] Comment on above: Result Comment: NORMAL <100 mg/dL PREDIABETES 101-126 mg/dL DIABETES 126 mg/dL or higher Potassium [Moles/Vol] 3.6 mmol/L Normal 3.5-5.1 [facility] Sodium [Moles/Vol] 137 mmol/L Normal 137-145 [facility] Urea nitrogen [Mass/Vol] 11 mg/dL Normal 7-20 [facility] CHEM 7 (LYTES,BUN,CREA,GLUC) on 12-10-2021 Chloride [Moles/Vol] 106 mmol/L [facility] Comment on above: Please note: Triglyc eride levels of 600mg/dL or higher may positively bias chloride results by approximately 2.1 mmol CO2 [Moles/Vol] 25 mmol/L [facility] Creatinine [Mass/Vol] 0.77 mg/dL [facility] GFR COMMENT Average GFR for 20-29 years old = 116. [facility] Comment on above: Chronic Kidney disea se, GFR = <60. Kidney failure, GFR = <15. The GFR estimate is not adjusted for extreme body surface area or acute process, nor has it been validated for women or ethnic groups other than and . GFR/1.73 sq M.predicted among blacks MDRD (S/P/Bld) [Vol rate/Area] 161 mL/min/{1.73_m2} ml/min/1.73sq. m [facility] GFR/1.73 sq M.predicted among non-blacks MDRD (S/P/Bld) [Vol rate/Area] 133 mL/min/{1.73_m2} ml/min/1.73sq. m [facility] Glucose post fast [Mass/Vol] 109 mg/dL High [facility] Comment on above: NORMAL <100 mg/dL PREDIABETES 101-126 mg/dL DIABETES 126 mg/dL or higher Interpretation and review of laboratory results Abnormal [facility] Potassium [Moles/Vol] 3.6 mmol/L [facility] [employer] Sodium [Moles/Vol] 137 mmol/L [facility] [employer] Urea nitrogen [Mass/Vol] 11 mg/dL [facility] CT ABDOMEN/PELVIS WITHOUT CO NTRASTon 12-10-2021 CT [...] OTHER: Negative. IMPRESSION: No acute abnormality Normal [facility] CT Abdomen and Pelvis WO con traston 12-10-2021 IMPRESSION: No acute abnormality RADIOLOGY EXAMINATION: CT ABDOMEN/PELVIS WITHOUT CONTRAST, 12/10/2021 6:49 [...] OTHER: Negative. IMPRESSION IMPRESSION: No acute abnormality [facility] Radiology Study observation (narrative) [facility] CT Abdomen and Pelvis WO con trastOrdered By: David Murphy on 12-10-2021 [facility] Work Phone: HEPATIC FUNCTION PANELon Albumin [Mass/Vol] 4.0 g/dL [facility] ALP [Catalytic activity/Vol] 48 U/L [facility] ALT [Catalytic activity/Vol] 16 U/L <50 IU/L [facility] AST [Catalytic activity/Vol] 24 U/L [facility] Bilirubin [Mass/Vol] 1.2 mg/dL [facility] Bilirubin.direct [Mass/Vol] 0.1 mg/dL [facility] Protein [Mass/Vol] 7.1 g/dL [facility] INFLUENZA A AND B, PCRon FLUAV and FLUBV Ag IF Nom (Unsp spec) Negative NEGATIVE [facility] FLUBV Ag IA Ql (Unsp spec) Negative NEGATIVE [facility] Comment on above: TESTING PERFORMED BY [facility] LACTATE, BLOODon 12-10-2021 Lactate [Moles/Vol] 0.8 mmol/L 0.7 - 2. 0 mmol/L [facility] LACTATE,BLOODon 12-10-2021 Lactate [Moles/Vol] 0.8 mmol/L Normal 0.7-2.0 [facility] LIPASEon 12-10-2021 Lipase [Catalytic activity/Vol] 36 U/L 23 - 300 U/L [facility] LIPASE,SERUMon 12-10-2021 LIPASE,SERUM 36 U/L Normal 23-300 [facility] LIVER PANELon 12-10-2021 Albumin [Mass/Vol] 4.0 g/dL Normal 2.9-5.3 [facility] ALP [Catalytic activity/Vol] 48 U/L Normal 38-126 [facility] ALT [Catalytic activity/Vol] 16 U/L Normal <50 [facility] AST [Catalytic activity/Vol] 24 U/L Normal 17-59 [facility] Bilirubin [Mass/Vol] 1.2 mg/dL Normal 0.2-1.3 [facility] Bilirubin.indirect [Mass/Vol] 0.1 mg/dL Normal 0-0.4 [facility] Protein [Mass/Vol] 7.1 g/dL Normal 6.3-8.2 [facility] NOVEL CORONAVIRUSon 12-11-19 22 NARRATIVE This test was performed using isothermal PHONG and has been approved as Emergency Use Authorization (EUA) for the qualitative detection [id number] nucleic acid. Normal [facility] SARS-CoV-2 (COVID-19) RNA PHONG+probe Ql (Unsp spec) Not detected Normal NOT DETECTED [facility] Comment on above: Result Comment: [...] SOPHARYNGEALon 12-10-2021 NARRATIVE -1 This test was performed using isothermal PHONG and has been approved as Emergency Use Authorization (EUA) for the qualitative detection [id number] nucleic acid. [facility] SARS-CoV-2 (COVID-19) RNA PHONG+probe Ql (Unsp spec) Not detected NOT DETECTED [facility] Comment on above: Negative results do not [...] patient is critically ill or clinically deteriorating. [facility] No Panel Informationon 12-10 Interpretation and review of laboratory results Abnormal [facility] Portable XR Chest Views APon 12-10-2021 IMPRESSION: No radiographic evidence for acute chest abnormality. RADIOLOGY EXAM: XR CHEST AP PORTABLE HISTORY: weakness COMPARISON: None available TECHNIQUE: Single frontal view chest x-ray FINDINGS: No lobar consolidation, large pleural effusions, pneumothorax, or acute bony abnormality. Cardiac size unremarkable. RADIOLOGY Luis Stevenson MD - 12/10/2021 EXAM: XR CHEST AP PORTABLE HISTORY: weakness COMPARISON: None available TECHNIQUE: Single frontal view chest x-ray FINDINGS: No lobar consolidation, large pleural effusions, pneumothorax, or acute bony abnormality. Cardiac size unremarkable. IMPRESSION IMPRESSION: No radiographic evidence for acute chest abnormality. [facility] Radiology Study observation (narrative) [facility] Portable XR Chest Views APOr dered By: Luis Stevenson on 12-10-2021 [facility] Work Phone: RAPID FLU Aon 12-10-2021 INFLUENZA A Negative Normal NEGATIVE [facility] INFLUENZA B Negative Normal NEGATIVE [facility] Comment on above: Result Comment: TEST ING PERFORMED BY PHONG RAPID TOX SCREEN,URINEon AMPHETAMINE Negative Normal NEGATIVE [facility] Comment on above: Result Comment: <500 ng/ml CUTOFF BARBITURATES Negative Normal NEGATIVE [facility] Comment on above: Result Comment: <200 ng/ml CUTOFF BENZODIAZEPINES Negative Normal NEGATIVE [facility] Comment on above: Result Comment: <150 ng/ml CUTOFF BUPRENORPHINE Negative Normal NEGATIVE [facility] Comment on above: Result Comment: <10 ng/ml CUTOFF CANNABINOIDS Positive Abnormal NEGATIVE [facility] Comment on above: Result Comment: <50 ng/ml CUTOFF *Unconfirmed Screening Result* Unconfirmed screening results are to be used only for medical treatment purposes. COCAINE Negative Normal NEGATIVE [facility] Comment on above: Result Comment: <150 ng/ml CUTOFF METHADONE Negative Normal NEGATIVE [facility] Comment on above: Result Comment: <200 ng/ml CUTOFF METHAMPHETAMINE Negative Normal NEGATIVE [facility] Comment on above: Result Comment: <500 ng/ml CUTOFF OPIATES Negative Normal NEGATIVE [facility] Comment on above: Result Comment: <100 ng/ml CUTOFF OXYCODONE Negative Normal NEGATIVE [facility] Comment on above: Result Comment: <100 ng/ml CUTOFF PHENCYCLIDINE Negative Normal NEGATIVE [facility] Comment on above: Result Comment: <25 ng/ml CUTOFF PROPOXYPHENE Negative Normal NEGATIVE [facility] Comment on above: Result Comment: <300 ng/ml CUTOFF TRICYCLIC ANTIDEPRESSANTS Negative Normal NEGATIVE [facility] Comment on above: Result Comment: <300 ng/ml CUTOFF TOXICOLOGY DRUG SCREEN, URIN Marcelino 12-10-2021 Amphetamine (U) [Mass/Vol] Negative NEGATIVE NG/ML [facility] Comment on above: <500 ng/ml CUTOFF Barbiturates Screen Ql (U) Negative NEGATIVE NG/ML [facility] Comment on above: <200 ng/ml CUTOFF Benzodiazepines Ql (U) Negative NEGATIVE NG/M L [facility] Comment on above: <150 ng/ml CUTOFF Benzoylecgonine Ql (U) Negative NEGATIVE NG/M L [facility] Comment on above: <150 ng/ml CUTOFF Buprenorphine Ql (U) Negative NEGATIVE NG/ML [facility] Comment on above: <10 ng/ml CUTOFF Cannabinoids Screen Ql (U) Positive Abnormal NEGATIVE NG/ML [facility] Comment on above: <50 ng/ml CUTOFF *Unconfirmed Screening Result* Unconfirmed screening results are to be used only for medical treatment purposes. Interpretation and review of laboratory results Abnormal [facility] Methadone Screen Ql (U) Negative NEGATIVE NG/ ML [facility] Comment on above: <200 ng/ml CUTOFF Methamphetamine (U) [Mass/Vol] Negative NEGATIVE NG/ML [facility] Comment on above: <500 ng/ml CUTOFF Opiates Screen Ql (U) Negative NEGATIVE NG/ML [facility] Comment on above: <100 ng/ml CUTOFF oxyCODONE Ql (U) Negative NEGATIVE NG/ML [facility] Comment on above: <100 ng/ml CUTOFF Phencyclidine Screen method >25 ng/mL Ql (U) Negative NEGATIVE NG/ML [facility] Comment on above: <25 ng/ml CUTOFF Propoxyphene+Norpropoxy phene Screen Ql (U) Negative NEGATIVE NG/ML [facility] Comment on above: <300 ng/ml CUTOFF Tricyclic antidepressants Screen Ql (U) Negative NEGATIVE NG/ML [facility] Comment on above: <300 ng/ml CUTOFF [facility] URINALYSIS, MACROon 12-11-19 22 Bilirubin Ql (U) Negative NEGATIVE [facility] Clarity (U) CLEAR CLEAR [facility] Color (U) YELLOW YELLOW [facility] Glucose Test strip (U) [Mass/Vol] Negative NEGATIVE mg/dl [facility] Hemoglobin Ql (U) Negative NEGATIVE [facility] Ketones (U) [Mass/Vol] TRACE Abnormal NEGATIVE mg/d l [facility] Leukocyte esterase Test strip Ql (U) Negative NEGATIVE [facility] Nitrite Ql (U) Negative NEGATIVE [facility] pH (U) 6.0 [pH] [facility] Protein Ql (U) TRACE Abnormal NEGATIVE mg/dl [facility] Specific gravity (U) [Rel density] >1.030 High [facility] Urobilinogen (U) [Mass/Vol] 1.0 mg/dL [facility] URINE MACROSCOPICon 12-11-19 22 Bilirubin Ql (U) Negative Normal NEGATIVE [facility] Clarity (U) CLEAR Normal CLEAR [facility] Color (U) YELLOW Normal YELLOW [facility] Glucose Ql (U) Negative Normal NEGATIVE [facility] pH (U) 6.0 [pH] Normal 5.0-7.0 [facility] URINE HEMOGLOBIN Negative Normal NEGATIVE [facility] URINE KETONE TRACE Abnormal NEGATIVE [facility] URINE LEUKOTEST Negative Normal NEGATIVE [facility] URINE NITRATES Negative Normal NEGATIVE [facility] URINE SPEC GRAVITY >1.030 High 1.010-1.025 [facility] URINE TOTAL PROTEIN TRACE Abnormal NEGATIVE [facility] Urobilinogen Qn (U) 1.0 {Saud'U}/dL Normal 0.2-1.0 [facility] URINE MICROSCOPICon 12-11-19 22 Bacteria LM.HPF (Urine sed) [#/Area] Negative Normal NEGATIVE [facility] CASTS NONE Normal NONE [facility] CRYSTAL NONE Normal NONE [facility] Epithelial cells LM Ql (Urine sed) NONE Normal [facility] Mucus Ql (Urine sed) 1+ Abnormal NEGATIVE [facility] URINE COMMENT CULTURE CRITERIA NOT MET, NO CULTURE PERFORMED. Normal [facility] URINE RBC'S 1 TO 5 Normal NEGATIVE [facility] URINE WBC'S Negative Normal NEGATIVE [facility] Bacteria LM.HPF (Urine sed) [#/Area] Negative NEGATIVE [facility] Casts LM.LPF (Urine sed) [#/Area] NONE NONE /LPF [facility] Crystals LM Nom (Urine sed) NONE NONE [facility] Epithelial cells LM Ql (Urine sed) NONE /HPF [facility] Mucus Ql (Urine sed) 1+ Abnormal NEGATIVE [facility] RBC LM.HPF (Urine sed) [#/Area] 1 TO 5 NEGATIVE /HPF [facility] Urine sediment comments LM Dillon (Urine sed) CULTURE CRITERIA NOT MET, NO CULTURE PERFORMED. [facility] WBC LM.HPF (Urine sed) [#/Area] Negative NEGATIVE /HPF [facility] XR CHEST AP PORTABLEon 12-10 XR CHEST AP PORTABLE EXAM: XR CHEST AP PORTABLE HISTORY: weakness COMPARISON: None available TECHNIQUE: Single frontal view chest x-ray FINDINGS: No lobar consolidation, large pleural effusions, pneumothorax, or acute bony abnormality. Cardiac size unremarkable. IMPRESSION: No radiographic evidence for acute chest abnormality. Normal [facility] Vital Signs Date Time Vital Sign Value Performing Clinician Facility 05-13-2023 09:09-0400 Body height 165.1 cm PHYSICIAN NO [facility] 05-13-2023 09:09-0400 Body temperature 98.4 [degF] PHYSICIAN NO [facility] 05-13-2023 09:09-0400 Body weight 74.45 kg PHYSICIAN NO [facility] 05-13-2023 09:09-0400 Diastolic blood pressure 94 mm[Hg] PHYSICIAN NO [facility] 05-13-2023 09:09-0400 Heart rate 64 /min PHYSICIAN NO [facility] 05-13-2023 09:09-0400 Respiratory rate 20 /min PHYSICIAN NO [facility] 05-13-2023 09:09-0400 SaO2% (BldA) [Mass fraction] 100 % PHYSICIAN NO [facility] 05-13-2023 09:09-0400 Systolic blood pressure 134 mm[Hg] PHYSICIAN NO [facility] 05-13-2022 15:12-0400 Diastolic blood pressure 76 mm[Hg] Mariela Drake MD Work Phone: [facility] 05-13-2022 15:12-0400 Heart rate 62 /min Mariela Drake MD Work Phone: [facility] 05-13-2022 15:12-0400 Respiratory rate 16 /min Mariela Drake MD Work Phone: [facility] 05-13-2022 15:12-0400 Systolic blood pressure 125 mm[Hg] Mariela Drake MD Work Phone: [facility] 05-13-2022 14:35-0400 Body height 165.1 cm Mariela Drake MD Work Phone: [facility] 05-13-2022 14:34-0400 Body temperature 98.4 [degF] Mariela Drake MD Work Phone: [facility] 05-13-2022 14:34-0400 SaO2% (BldA) [Mass fraction] 100 % Mariela Drake MD Work Phone: [facility] 05-09-2022 12:44-0400 Diastolic blood pressure 70 mm[Hg] William Del Castillo MD Work Phone: [facility] 05-09-2022 12:44-0400 Heart rate 50 /min William Del Castillo MD Work Phone: [facility] 05-09-2022 12:44-0400 SaO2% (BldA) [Mass fraction] 98 % William Del Castillo MD Work Phone: [facility] 05-09-2022 12:44-0400 Systolic blood pressure 124 mm[Hg] William Del Castillo MD Work Phone: [facility] 05-09-2022 11:51-0400 Body height 165.1 cm William Del Castillo MD Work Phone: [facility] 05-09-2022 11:40-0400 Body temperature 98.71 [degF] William Del Castillo MD Work Phone: [facility] 05-09-2022 11:40-0400 Respiratory rate 16 /min William Del Castillo MD Work Phone: [facility] 12-12-2021 23:57-0400 Diastolic blood pressure 67 mm[Hg] Aida Masters MD Work Phone: [facility] 12-12-2021 23:57-0400 Heart rate 74 /min Aida Masters MD Work Phone: [facility] 12-12-2021 23:57-0400 SaO2% (BldA) [Mass fraction] 96 % Aida Masters MD Work Phone: [facility] 12-12-2021 23:57-0400 Systolic blood pressure 109 mm[Hg] Aida Masters MD Work Phone: [facility] 12-12-2021 22:38-0400 Body temperature 98.4 [degF] Aida Masters MD Work Phone: [facility] 12-12-2021 22:38-0400 Respiratory rate 17 /min Aida Masters MD Work Phone: [facility] 12-10-2021 08:12-0400 Diastolic blood pressure 54 mm[Hg] Gorge Cleaning MD Work Phone: [facility] 12-10-2021 08:12-0400 Heart rate 76 /min Gorge Cleaning MD Work Phone: [facility] 12-10-2021 08:12-0400 Respiratory rate 18 /min Gorge Cleaning MD Work Phone: [facility] 12-10-2021 08:12-0400 SaO2% (BldA) [Mass fraction] 97 % Gorge Cleaning MD Work Phone: [facility] 12-10-2021 08:12-0400 Systolic blood pressure 101 mm[Hg] Gorge Cleaning MD Work Phone: [facility] 12-10-2021 05:18-0400 Body temperature 98.49 [degF] Gorge Cleaning MD Work Phone: [facility] Encounters Encounter Date Encounter Type Care Provider Facility Start: 05-13-2023 End: 05-13-2023 Emergency department patient visit PHYSICIAN ABDULAZIZ [facility] Work Phone: Start: 05-13-2022 End: 05-13[facility] Start: 05-13-2022 End: 05-13-2022 Emergency department patient visit Mariela Drake MD Work Phone: [facility] Medicine Start: 05-09-2022 End: 05-09-2022 Emergency department patient visit WILLIAM DEL CASTILLO [facility] Start: 05-09-2022 End: 05-09-2022 Emergency department patient visit William Del Castillo MD Work Phone: [facility] Start: 12-13-2021 End: 12-13-2021 Emergency department patient visit AIDA MASTERS [facility] Start: 12-12-2021 End: 12-13-2021 Emergency department patient visit Aida Masters MD Work Phone: [facility] Start: 12-10-2021 End: 12-10-2021 Emergency department patient visit GORGE CLEANING [facility] Start: 12-10-2021 End: 12-10-2021 Emergency department patient visit Gorge Cleaning MD Work Phone: [facility] Emergency [facility] Procedures Date Procedure Procedure Detail Performing Clinician Start: 05-09-2022 Ct lower extremity w /o contrast material William Del Castillo MD Work Phone: Start: 05-09-2022 End: 10-07-2022 Radex ankle complete minimum 3 views William [...] Detail Author Start: 03-31-2031 Tetanus vaccination TETANUS [facility] Start: 05-22-2022 End: 05-22-2022 Patient encounter procedure 05/22/2022 Office Visit Orthopaedics Luis Miguel MD [address] [place] [address] [place] [address] [facility] Start: 04-03-2022 Influenza [facility] Start: 08-08-2013 HIV screening HIV SCREENING DISCUSSION [facility] Start: 2009 Vaccination for human papillomavirus HPV VACCINE ADOL (1 - Male 2-dose series) [facility] Start: 2004 PNEUMOCOCCAL VACCINE SERIES (1 - PCV) PNEUMOCOCCAL VACCINE SERIES (1 - PCV) [facility] Start: 2003 COVID-19 VACCINE (#1) COVID-19 VACCINE (#1) [facility] Start: 1998 COVID-19 VACCINE (#1) COVID-19 VACCINE (#1) [facility] Start: 1998 Hepatitis C antibody, confirmatory test HEPATITIS C VIRUS SCREENING [facility] Start: 1998 Hepatitis C screening HEPATITIS C VIRUS SCREENING [facility] Patient Education Migraines in adults [facility] Work Phone: Patient referral [facility] Work Phone: Immunizations Immunization Date Immunization Notes Care Provider Fa cili 03-31-2021 tetanus toxoid, redu gil diphtheria toxoid, and acellular pertussis vaccine, adsorbed Gorge Cleaning MD Work Phone: [facility] 05-21-2009 influenza virus vaccine, unspecified formulation Gorge Cleaning MD Work Phone: [facility] Payers Date Payer Category Payer Self-pay 2023 Unknown [id number] 2021 Unknown [employer] [place] [id number] 2021-Present [address] [place] [address] [id number] 2021 Unknown [id number] 1998 Unknown [id number] 1998 Unknown [id number] 1998 Unknown [id number] 1998 Unknown [id number] Unknown [id number] Social History Date Type Detail Facility Start: 03-31-2021 [facility] [employer] [facility] Start: 03-31-2021 Cigarettes smoked current (pack per day) - Reported 0.5 [employer] Start: 03-31-2021 Tobacco use and exposure [facility]ok[facility] Start: 12-10-2021 End: 05-13-2022 Alcohol intake Current drink[facility] of [facility] (finding) [facility] Start: 03-31-2021 History SDOH Alcohol Comment occassional [facility] Start: 2000 Sex Assigned At Not on file [employer] Start: 11-30-2021 End: 05-13-2022 Exposure to SARS-CoV-2 (event) Not sure [facility] History of tobacco use Cigarette Smoker [facility] [employer] Start: 05-13-2023 Tobacco smoking stat [facility] Smoker (finding) [facility] Start: 2000 Sex Assigned At Male F [facility] Clinical Notes 12-10-2021 to 05-13-2022 Yocasta Kim RN - 05/13/2022 3:11 PM Thomas Kim RN - 05/13/2022 3:11 PM EDTCanaid Londono RN - 05/13/2022 2:36 PM EDTDischarge InstructionsCatseveriano Londono RN - 05/13/2022 2:36 PM EDT Note Date & Type Note Facility 05-13-2022 Emergency department Note At bedside to discharge patient. All paperwork gone over. Denies any questions at this time. VSS, RR is regular and unlabored. [place] was steady on crutches. [facility] 05-13-2022 Emergency department Note At bedside to discharge patient. All paperwork gone over. Denies any questions at this time. VSS, RR is regular and unlabored. [place] was steady on crutches. To ED with report of right foot pain. No improvement since last visit. States aggravated by standing on it at work. One dose of ibuprofen this morning. Reiterated the importance of appropriate use of NSAIDS for pain relief. documented in this encounter [facility] 05-13-2022 Hospital Discharg e instructions Mariela Drake MD - 05/13/2022 3:01 PM EDT Follow up with orthopedic surgery. Return to ED if we can further assist you. documented in this encounter [facility] 05-13-2022 Emergency department Note To ED with report of right foot pain. No improvement since last visit. States aggravated by standing on it at work. One dose of ibuprofen this morning. Reiterated the importance of appropriate use of NSAIDS for pain relief. [facility] 05-09-2022 Emergency department Note Bedside to apply RUDI wrap and air cast. Tolerated well. Voices an understanding of wearing.Work note and discharge papers provided. Denies concerns/questions. Ambulates out of ED with slight limp, respirs even and unlabored. [facility] 05-09-2022 Emergency department Note Bedside to apply RUDI wrap and air cast. Tolerated well. Voices an understanding of wearing.Work note and discharge papers provided. Denies concerns/questions. Ambulates out of ED with slight limp, respirs even and unlabored. Images from the original note were not included. Emergency Department Report [facility] Service Date:.05/09/22 PCP: No primary [...] Use Authorization (EUA) for the qualitative detection hbXJLB-CuR-4 nucleic acid. CBC, EDIF, PLATELET Result Value [...] YELLOW YELLOW APPEARANCE, URINE CLEAR CLEAR Specific [place], Urine >1.030 (H) 1.010 - 1.025 PH [...] orthopedics as an outpatient work excuse provided. MDM Number of Diagnoses or Management Options Amount [...] ankle and foot. documented in this encounter [facility] 05-09-2022 Physician Emergency department Note Images from the original note were not included. Emergency Department Report [facility] EM[facility]Y MEDICINE Service Date:.05/09/22 PCP: No primary [...] Use Authorization (EUA) for the qualitative detection grQFBB-[id number]-9 nucleic acid. CBC, EDIF, PLATELET Result Value [...] YELLOW YELLOW APPEARANCE, URINE CLEAR CLEAR Specific [place], Urine >1.030 (H) 1.010 - 1.025 PH [...] orthopedics as an outpatient work excuse provided. [facility] Number of Diagnoses or Management Options Amount [...] . William Del Castillo MD 05/09/22 1316 [facility] 05-09-2022 Emergency department Note Ice applied to right ankle and foot. [facility] 12-12-2021 Emergency department Note Rudi wrap applied to R wrist. Discharge instructions reviewed and given to pt. Denies questions. Pt a&o, respirations even and unlabored. Exits Ed w/ steady gait. [facility] 12-12-2021 Emergency department Note Rudi wrap applied to R wrist. Discharge instructions reviewed and given to pt. Denies questions. Pt a&o, respirations even and unlabored. Exits Ed w/ steady gait. Ice Bag applied X-ray at bedside Emergency Department Report [facility] Service Date:.12/12/21 PCP: [...] Use Authorization (EUA) for the qualitative detection xbWHDZ-BlA-3 nucleic acid. CBC, EDIF, PLATELET Result Value [...] YELLOW YELLOW APPEARANCE, URINE CLEAR CLEAR Specific [place], Urine >1.030 (H) 1.010 - 1.025 PH [...] information. . . Aida Masters MD 12/12/21 2346 documented in this encounter [facility] 12-12-2021 Hospital Discharg e instructions Aida Masters MD - 12/12/2021 11:41 PM EDT Take Ibuprofen 600 mg every 6 hours as needed for pain. Apply ice 5 times a day 15 minutes at a time for next 48 hours. Call your doctor for follow up appointment. If worse come back to ER The following attachments cannot be sent through Care Everywhere.RICE: General Info (Burmese)Hand Sprain (Burmese)Wrist Sprain (Burmese)documented in this encounter [facility] 12-12-2021 Emergency department Note Ice Bag applied [facility] 12-12-2021 Emergency department Note X-ray at bedside [facility] 12-12-2021 Physician Emergency department Note Emergency Department Report [facility] EMERGENCY MEDICINE Service Date:.12/12/21 PCP: No primary [...] Use Authorization (EUA) for the qualitative detection hdOBOM-GeA-[id number] nucleic acid. CBC, EDIF, PLATELET Result Value [...] YELLOW YELLOW APPEARANCE, URINE CLEAR CLEAR Specific [place], Urine >1.030 (H) 1.010 - 1.025 PH [...] information. . . Aida Masters MD 12/12/21 2346 [employer] [facility] Work Phone: 12-10-2021 Emergency department Note [...] Cleaning's complete dictation. Fabrice Dougherty DO 12/10/21 0807 [employer] [facility] Work Phone: 12-10-2021 Emergency department [...] Cleaning's complete dictation. Fabrice Dougherty DO 12/10/21 0807 Pt reports nausea still present. Dr. Cleaning aware. Pt aware of UA order and states unable to urinate at this time. Dr. Cleaning at bedside. Patient denies changes to medications, diet, or dietary supplements. documented in this encounter [facility] 12-10-2021 Emergency department Note Pt reports nausea still present. Dr. Cleaning aware. [facility] 12-10-2021 Hospital Discharg e instructions Gorge Cleaning [...] attachments cannot be sent through Care Everywhere.Gastroenteritis (Burmese)documented in this encounter [facility] 12-10-2021 Emergency department Note Pt aware of UA order and states unable to urinate at this time. [facility] 12-10-[address] Cleaning at bedside. [facility] 12-10-2021 Emergency department Note Patient denies changes to medications, diet, or dietary supplements. [facility] Evaluation note Diagnosis Gastroenteritis- Primary Other and unspecified noninfectious gastroenteritis and colitis [facility] Diagnosis Sprain of right wrist, initial encounter- Primary Sprain of right hand, initial encounter [facility] Diagnosis Sprain of right foot, initial encounter- Primary Sprain of right ankle, unspecified ligament, initial encounter [facility] Diagnosis Injury of right foot, subsequent encounter- Primary [facility] noteNo assessment [facility] Work Phone: Hospital Discharge instructions* Attachments The following attachments cannot be sent through Care Everywhere. * Ankle Sprain (Burmese) * RICE: General Info (Burmese) [facility]Reason for [facility] (narrative)* Consultation (Routine) - New Request Specialty Diagnoses / Procedures Referred By Contac t Referred To Contact Family Medicine Diagnoses Gastroenteritis Gorge Cleaning MD [address] [place] [address] Referral ID Status Reason Start Date Expiration Date V isits Requested Visits Authorized [id number] New Request 12/10/2021 01/04/2023 1 1 [facility] for referral (narrative)* Consultation (Urgent) - New Request Specialty Diagnoses / Procedures Referred By Contac t Referred To Contact Orthopaedic Surgery Diagnoses Sprain of right ankle, unspecified ligament, initial encounter Sprain of right foot, initial encounter William Del Castillo MD [address] [place] [address] Luis Miguel MD [address] [place] [address] [place] [address] Referral ID Status Reason Start Date Expiration Date V isits Requested Visits Authorized [id number] New Request 05/09/2022 06/03/2023 1 1 [facility] for referral (narrative)* Consultation (Routine) - New Request Specialty Diagnoses / Procedures Referred By Contac t Referred To Contact Orthopaedic Surgery Diagnoses Injury of right foot, subsequent encounter Mariela Drake MD [address] [place] [address] Referral ID Status Reason Start Date Expiration Date V isits Requested Visits Authorized [id number] New Request 05/13/2022 06/07/2023 1 1 T [facility] Summary Purpose Family History No Family History [...] 4 mg, Intravenous, ONCE, 1 dose, On Thu12/10/21 at 0545 0540 (Given - Provid er: [...] section and content) DATE CREATED AUTHOR 05/27/2022 Olivier preciado DATE CREATED AUTHOR AUTHOR'S AQUILINO ATION 07/15/2023 [facility] Care Teams (unrecognized sec tion and [...] BE BASED ON THE PRIMARY CLINICAL RECORDS. [employer] [facility]. provides no warranty or guarantee of the accuracy or completeness of information in this document.
--- NOTE | 2023-08-23 02:45 | ED_ITS ---
HPI - Trauma General Chief Complaint: Extremity Injury, Upper Stated Complaint: UE INJURY Time Seen by Provider: 08/23/23 02:41 Source: patient Mode of arrival: walk-in Limitations: no limitations History of Present Illness HPI narrative: patient states he was dancing on a table and fell off striking his right posterior chest and shoulder. Concerned he may have a dislocated shoulder. Also has some neck pain. No abdominal pain or nausea. No extremity weakness MD complaint: Reports fall and injury Related Data Home Medications Medication Instructions Recorded Confirmed levetiracetam 500 mg tablet 500 mg PO Q12H 08/23/23 08/23/23 meclizine 25 mg tablet 25 mg PO PRN dizziness 08/23/23 Allergies Allergy/AdvReac Type Severity Reaction Status Date / Time No Known Drug Allergies Allergy Verified 08/23/23 02:39 Review of Systems ROS Status of ROS 10 or more systems reviewed and unremark able except as noted in history and below PFSH PFSH Social History Smoking status: Current every day smoker Exam Constitutional Vital Signs, click to edit/add: Last Vital Signs Temp 98.8 F 08/23/23 02:34 Pulse 73 08/23/23 02:34 Resp 16 08/23/23 02:34 BP 153/85 H 08/23/23 02:34 Pulse Ox 100 08/23/23 02:34 Common normals: no apparent distress, average body habitus, oriented x3, no limitations, healthy appearing, alert and well nourished [facility] Common normals: normocephalic and head/scalp atraumatic Eye Common normals: EOMs intact bilaterally and conjunctivae normal Respiratory Common normals: normal respiratory effort, no retractions and no use of acce ssory muscles Cardio Common normals: regular rate, regular rhythm, S1 normal heart sound and S2 normal heart sound GI Common normals: Normal to inspection, nondistended, normoactive bowel sounds present, soft to palpation and non-tender Extremity Common normals: normal to inspection and full ROM Neuro Common normals: oriented x3, CN's II-XII intact bilaterally, moves all extremities and no focal motor deficits Psych Appearance: grossly normal Course Vital Signs Vital signs: Vital Signs Temperature 98.8 F 08/23/23 02:34 Pulse Rate 73 08/23/23 02:34 Respiratory Rate 16 01/21/24 02:34 Blood Pressure 153/85 H 08/23/23 02:34 Pulse Oximetry 100 08/23/23 02:34 Temperature 98.8 F 08/23/23 02:34 Pulse Rate 73 08/23/23 02:34 Respiratory Rate 16 08/23/23 02:34 Blood Pressure 153/85 H 08/23/23 02:34 Pulse Oximetry 100 08/23/23 02:34 MDM - Trauma MDM Narrative Medical decision making narrative: patient fell off of a table backwards striking his right back and shoulder. also has neck pain. Neg. LOC. Presents concerned he may have dislocated his shoulder. Has tenderness of the scapula but no deformity. CT demonstrates nondisplaced fracture of the scapula. Patient provided with a sling and referred to orthopedics Lab Data Labs: Lab Results 08/23/23 Range/Units 02:56 WBC 10.4 (4.0-11.0) 10^3/uL RBC 4.87 (4.70-6.10) 10^6/uL Hgb 14.5 (14.0-18.0) g/dL Hct 41.9 L (42.0-54.0) % MCV 86.0 (80.0-94.0) fL MCH 29.8 (25.9-34.0) pg MCHC 34.6 (29.9-35.2) g/dL RDW 11.9 (11.0-15.0) % Plt Count 219 (150-450) 10^3/uL MPV 10.0 (9.5-13.5) fL Neut % (Auto) 84.2 H (43.0-75.0) % Lymph % (Auto) 9.6 L (20.5-60.0) % [place] % (Auto) 5.2 (1.7-12.0) % Eos % (Auto) 0.3 L (0.9-7.0) % Baso % (Auto) 0.4 (0.2-2.0) % Neut # (Auto) 8.7 H (1.4-6.5) 10^3/uL Lymph # (Auto) 1.0 L (1.2-3.8) 10^3/uL [place] # (Auto) 0.5 (0.3-0.8) 10^3/uL Eos # (Auto) 0.0 (0.0-0.7) 10^3/uL Baso # (Auto) 0.0 (0.0-0.1) 10^3/uL Abs Immat Gran (auto) 0.03 (0.00-0.03) 10^3/uL Imm/Tot Granulo (auto) 0.3 (0.0-0.5) % Sodium 144 (136-145) mmol/L Potassium 3.9 (3.5-5.1) mmol/L Chloride 105 (98-107) mmol/L Carbon Dioxide 29.2 (21.0-32.0) mmol/L Anion Gap 13.7 BUN 10.0 (7.0-18.0) mg/dL Creatinine 1.07 (0.70-1.30) mg/dL Est GFR ( Amer) >60 (>=60) Est GFR (Non-Af Amer) >60 (>=60) BUN/Creatinine Ratio 9.3 Glucose 90 (74-106) mg/dL Calcium 9.8 (8.5-10.1) mg/dL Total Bilirubin 1.7 H (0.2-1.0) mg/dL AST 27 (15-37) U/L ALT 40 (16-63) U/L Alkaline Phosphatase 51 (46-116) U/L Total Protein 8.1 (6.4-8.2) g/dL Albumin 4.7 (3.4-5.0) g/dL Globulin 3.4 g/dL Albumin/Globulin Ratio 1.4 Imaging Data Chest x-ray: Radiologist's impression: ITS Impressions Cervical Spine CT 08/23/23 02:47 IMPRESSION: 1. No acute intracranial abnormality. No hemorrhage or mass effect. There is redemonstration of the linear low-density in the right frontal lobe which extends down to the margin of the lateral ventricle. This remains unchanged from prior. 2. No change in the appearance of enlarged ventricular system particularly the lateral third ventricles as compared to the prior study, this is out of proportion to the cortical sulci. The presence of a mild degree to stable communicating hydrocephalus is not excluded. 3. No cervical fracture or vertebral body collapse. No focal disc herniation or bony stenosis. Electronically authenticated by: MARTIN ABERNATHY Date: 08/23/2023 03:[address] 08/23/23 02:47 IMPRESSION: 1. Acute nondisplaced fracture with additional multiple cortical buckling fracture deformity of the inferior angle of the right scapula. 2. No CT evidence for acute traumatic lung or cardiac mediastinal injury. 3. 1.5 cm heterogeneous right thyroid lobe nodule (image 4 series 3). Nonemergency thyroid sonography can be considered if not recently or previously performed. Electronically authenticated by: ONELIA IRVING Date: 08/23/2023 04:[address] 08/23/23 02:47 IMPRESSION: 1. No acute intracranial abnormality. No hemorrhage or mass effect. There is redemonstration of the linear low-density in the right frontal lobe which extends down to the margin of the lateral ventricle. This remains unchanged from prior. 2. No change in the appearance of enlarged ventricular system particularly the lateral third ventricles as compared to the prior study, this is out of proportion to the cortical sulci. The presence of a mild degree to stable communicating hydrocephalus is not excluded. 3. No cervical fracture or vertebral body collapse. No focal disc herniation or bony stenosis. Electronically authenticated by: MARTIN ABERNATHY Date: 08/23/2023 03:54 Shoulder X-Ray 08/23/23 02:47 IMPRESSION: 1. No acute fracture or dislocation of the right shoulder is seen. If there is concern for internal derangement, a nonemergent outpatient MRI is recommended. Electronically authenticated by: Justine YANES Date: 08/23/2023 03:58 Discharge Plan Discharge Chief Complaint: Extremity Injury, Upper Clinical Impression: Fracture, scapula closed Patient Disposition: Home, Self-Care Prescriptions / Home Meds: No Action levetiracetam 500 mg tablet 500 mg PO Q12H meclizine 25 mg tablet 25 mg PO PRN (Reason: dizziness) Instructions: Scapular Fracture (ED) Additional Instructions: follow up with Dr Hdz Stand Alone Forms: Portal Instructions Referrals: MAXIMO DIAZ [Primary Care Provider] - 1 week
--- NOTE | 2023-08-23 02:47 | CT_ITS ---
The [address] [address] Patient Name: KALA WATTERS MRN: [facility]:[id number] date: 2000 Sex: M Assigned Patient Location: ER Current Patient Location: ER Accession/Order Number: [id number] Exam Date: 08/23/2023 03:20 Report Date: 08/23/2023 03:54 At the request of: GARLAND VALDEZ Procedure: CT cervical spine wo con INDICATION: 23 years old; Male. Close head trauma status post fall. TECHNIQUE: CT Head (ax/cor/sag reformats). Ionizing radiation dose reduced via iterative reconstruction/FBP blend and body size kV/mA adjustment. Comparison: Head CT dated 06/15/2023. FINDINGS: POSTOPERATIVE CHANGES: None. BRAIN PARENCHYMA: There is a linear focus of low-density present in the right frontal lobe. This is unchanged as compared to the prior study. This extends down to the margin of the right lateral ventricle. No mass effect. No midline shift or herniation. No intraparenchymal or extra-axial hemorrhage. Normal kat/white differentiation. VENTRICLES/EXTRA-AXIAL SPACES: Enlarged as compared to the cortical sulci. This finding would be consistent with a mild degree of thickening indicating hydrocephalus which is unchanged as compared to the prior examination. SINUSES/MASTOIDS: Visualized sinuses are clear however the maxillary sinuses are not entirely visible in this routine CT the head. Mastoids and middle ears are clear. MSK: No displaced or depressed calvarial fracture. OTHER: No hyperdense intraluminal thrombus is seen. TECHNIQUE: CT imaging of the cervical spine was performed. IV contrast: None. Dose reduction techniques were achieved by using automated exposure control and/or adjustment of mA and/or kV according to patient size and/or use of iterative reconstruction technique. COMPARISON: None available. FINDINGS: POSTOPERATIVE CHANGES: None. ALIGNMENT: Nonspecific straightening of the normal cervical curve. There is torticollis concave to the right with a rotational component. COMPRESSION FRACTURES: No fracture or vertebral body collapse is seen. No bone displacement. No asymmetric widening of the facets. PREVERTEBRAL SOFT TISSUES: Normal. CRANIOCERVICAL JUNCTION: There is a normal relationship of the occipital condyles, lateral masses of C1, and articular surfaces of C2. The base of the dens and body of C2 are intact. POSTERIOR FOSSA: Cerebellar tonsils are above the foramen magnum. Disc levels: C2-C3: No disc herniation. No spinal canal or foraminal narrowing. C3-C4: No disc herniation. No spinal canal or foraminal narrowing. C4-C5: No disc herniation. No spinal canal or foraminal narrowing. C5-C6: No disc herniation. No spinal canal or foraminal narrowing. C6-C7: No disc herniation. No spinal canal or foraminal narrowing. C7-T1: No disc herniation. No spinal canal or foraminal narrowing. UPPER THORACIC SPINE: Beam hardening artifacts are present at T1-T2 and T2-T3. Central canal and neural foramina are patent. OTHER: No thyroid nodule or adenopathy. CT/CT cervical spine wo con IMPRESSION: 1. No acute intracranial abnormality. No hemorrhage or mass effect. There is redemonstration of the linear low-density in the right frontal lobe which extends down to the margin of the lateral ventricle. This remains unchanged from prior. 2. No change in the appearance of enlarged ventricular system particularly the lateral third ventricles as compared to the prior study, this is out of proportion to the cortical sulci. The presence of a mild degree to stable communicating hydrocephalus is not excluded. 3. No cervical fracture or vertebral body collapse. No focal disc herniation or bony stenosis. Electronically authenticated by: MARTIN ABERNATHY Date: 08/23/2023 03:54
--- NOTE | 2023-08-23 02:47 | CT_ITS ---
The [address] [address] Patient Name: KALA WATTERS MRN: [facility]:[id number] date: 2000 Sex: M Assigned Patient Location: ER Current Patient Location: ER Accession/Order Number: [id number] Exam Date: 08/23/2023 03:20 Report Date: 08/23/2023 04:00 At the request of: GARLAND VALDEZ Procedure: CT chest w con EXAM: CT chest w con HISTORY: trauma ,fall injury to the back. Reports neck, back, and right shoulder pain. COMPARISON: Chest x-ray 12/10/2021 TECHNIQUE: Multiple axial views CT chest after administration of 100 cc Omnipaque 300 IV contrast. Coronal sagittal reformats. FINDINGS: Central airway is patent. No pneumothorax, lung contusion, lung laceration, pleural effusion, pneumomediastinum, or mediastinal hematoma. Cardiac mediastinum is unremarkable. The lungs are clear. 1.5 cm heterogeneous right thyroid lobe nodule (image 4 series 3). Minimal hiatal hernia. Acute nondisplaced fracture with additional multiple cortical buckling fracture deformity of the inferior angle of the right scapula (image 81 series 7), (image 33 through 41 series 4). No visible rib fractures seen. Mild disc osteophyte complex at T11-T12 without severe bony canal narrowing. CT/CT chest w con IMPRESSION: 1. Acute nondisplaced fracture with additional multiple cortical buckling fracture deformity of the inferior angle of the right scapula. 2. No CT evidence for acute traumatic lung or cardiac mediastinal injury. 3. 1.5 cm heterogeneous right thyroid lobe nodule (image 4 series 3). Nonemergency thyroid sonography can be considered if not recently or previously performed. Electronically authenticated by: ONELIA IRVING Date: 08/23/2023 04:00
--- NOTE | 2023-08-23 02:47 | CT_ITS ---
The [address] [address] Patient Name: KALA WATTERS MRN: [facility]:[id number] date: 2000 Sex: M Assigned Patient Location: ER Current Patient Location: ER Accession/Order Number: [id number] Exam Date: 08/23/2023 03:20 Report Date: 08/23/2023 03:54 At the request of: GARLAND VALDEZ Procedure: CT head/brain wo con INDICATION: 23 years old; Male. Close head trauma status post fall. TECHNIQUE: CT Head (ax/cor/sag reformats). Ionizing radiation dose reduced via iterative reconstruction/FBP blend and body size kV/mA adjustment. Comparison: Head CT dated 06/15/2023. FINDINGS: POSTOPERATIVE CHANGES: None. BRAIN PARENCHYMA: There is a linear focus of low-density present in the right frontal lobe. This is unchanged as compared to the prior study. This extends down to the margin of the right lateral ventricle. No mass effect. No midline shift or herniation. No intraparenchymal or extra-axial hemorrhage. Normal kat/white differentiation. VENTRICLES/EXTRA-AXIAL SPACES: Enlarged as compared to the cortical sulci. This finding would be consistent with a mild degree of thickening indicating hydrocephalus which is unchanged as compared to the prior examination. SINUSES/MASTOIDS: Visualized sinuses are clear however the maxillary sinuses are not entirely visible in this routine CT the head. Mastoids and middle ears are clear. MSK: No displaced or depressed calvarial fracture. OTHER: No hyperdense intraluminal thrombus is seen. TECHNIQUE: CT imaging of the cervical spine was performed. IV contrast: None. Dose reduction techniques were achieved by using automated exposure control and/or adjustment of mA and/or kV according to patient size and/or use of iterative reconstruction technique. COMPARISON: None available. FINDINGS: POSTOPERATIVE CHANGES: None. ALIGNMENT: Nonspecific straightening of the normal cervical curve. There is torticollis concave to the right with a rotational component. COMPRESSION FRACTURES: No fracture or vertebral body collapse is seen. No bone displacement. No asymmetric widening of the facets. PREVERTEBRAL SOFT TISSUES: Normal. CRANIOCERVICAL JUNCTION: There is a normal relationship of the occipital condyles, lateral masses of C1, and articular surfaces of C2. The base of the dens and body of C2 are intact. POSTERIOR FOSSA: Cerebellar tonsils are above the foramen magnum. Disc levels: C2-C3: No disc herniation. No spinal canal or foraminal narrowing. C3-C4: No disc herniation. No spinal canal or foraminal narrowing. C4-C5: No disc herniation. No spinal canal or foraminal narrowing. C5-C6: No disc herniation. No spinal canal or foraminal narrowing. C6-C7: No disc herniation. No spinal canal or foraminal narrowing. C7-T1: No disc herniation. No spinal canal or foraminal narrowing. UPPER THORACIC SPINE: Beam hardening artifacts are present at T1-T2 and T2-T3. Central canal and neural foramina are patent. OTHER: No thyroid nodule or adenopathy. CT/CT head/brain wo con IMPRESSION: 1. No acute intracranial abnormality. No hemorrhage or mass effect. There is redemonstration of the linear low-density in the right frontal lobe which extends down to the margin of the lateral ventricle. This remains unchanged from prior. 2. No change in the appearance of enlarged ventricular system particularly the lateral third ventricles as compared to the prior study, this is out of proportion to the cortical sulci. The presence of a mild degree to stable communicating hydrocephalus is not excluded. 3. No cervical fracture or vertebral body collapse. No focal disc herniation or bony stenosis. Electronically authenticated by: MARTIN ABERNATHY Date: 08/23/2023 03:54
--- NOTE | 2023-08-23 02:47 | XR_ITS ---
The [address] [address] Patient Name: KALA WATTERS MRN: [id number] date: 2000 Sex: M Assigned Patient Location: ER Current Patient Location: ER Accession/Order Number: [id number] Exam Date: 08/23/2023 03:42 Report Date: 08/23/2023 03:58 At the request of: GARLAND VALDEZ Procedure: XR shoulder RT min 2V EXAM: XR shoulder RT min 2V HISTORY: injury COMPARISON: None. TECHNIQUE: 3 views of the right shoulder were obtained. FINDINGS: No acute fracture or dislocation is seen. The right humeral head is well-seated on the glenoid. The acromioclavicular and coracoclavicular distances are preserved. The imaged lungs are clear. XR/XR shoulder RT min 2V IMPRESSION: 1. No acute fracture or dislocation of the right shoulder is seen. If there is concern for internal derangement, a nonemergent outpatient MRI is recommended. Electronically authenticated by: Justine YANES Date: 08/23/2023 03:58
--- NOTE | 2023-08-23 02:51 | PC.NURSE ---
C/O neck pain. Placed in c-collar.
[2023-08-23] MEDS: 0.9 % SODIUM CHLORIDE 1,000 ML 999 ML IV (03:11)
[2023-08-23 03:26] LABS: Basophils Percent Auto 0.4 % (0.2-2.0); Eosinophils Percent Auto 0.3 % (0.9-7.0); Hematocrit 41.9 % (42.0-54.0); Hemoglobin 14.5 g/dL (14.0-18.0); Immature Granulocytes Abs Auto 0.03 10^3/uL (0.00-0.03); Immature Granulocytes Pct Auto 0.3 % (0.0-0.5); Lymphocytes Percent Auto 9.6 % (20.5-60.0); Mean Corpuscular HGB Conc 34.6 g/dL (29.9-35.2); Mean Corpuscular Hemoglobin 29.8 pg (25.9-34.0); Monocytes Absolute Auto 0.5 10^3/uL (0.3-0.8); Monocytes Percent Auto 5.2 % (1.7-12.0); Neutrophils Absolute Auto 8.7 10^3/uL (1.4-6.5); Neutrophils Percent Auto 84.2 % (43.0-75.0); Platelet Count 219 10^3/uL (150-450); Red Blood Count 4.87 10^6/uL (4.70-6.10); Red Cell Distribution Width 11.9 % (11.0-15.0); White Blood Count 10.4 10^3/uL (4.0-11.0)
[2023-08-23 03:37] LABS: Alanine Aminotransferase 40 U/L (16-63); Albumin Globulin Ratio 1.4; Albumin Level 4.7 g/dL (3.4-5.0); Alkaline Phosphatase 51 U/L (46-116); Anion Gap 13.7; Aspartate Amino Transferase 27 U/L (15-37); BUN Creatinine Ratio 9.3; Bilirubin Total 1.7 mg/dL (0.2-1.0); Calcium 9.8 mg/dL (8.5-10.1); Carbon Dioxide 29.2 mmol/L (21.0-32.0); Chloride 105 mmol/L (98-107); Estimated GFR (African America >60 (>=60); Estimated GFR (Non-African Ame >60 (>=60); Globulin 3.4 g/dL; Glucose 90 mg/dL (74-106); Potassium 3.9 mmol/L (3.5-5.1); Sodium 144 mmol/L (136-145); Total Protein 8.1 g/dL (6.4-8.2)
[2023-08-23] MEDS: HYDROCODONE/ACET 5-325 MG TABLET 4 TAB PO (04:43)
--- NOTE | 2023-08-23 04:51 | PC.NURSE ---
Sling placed on left arm. Pt educated on sling use. Pt verbalized understanding. Alexis sent home. Pt verbalized understanding to follow up with Dr Hdz Thursday at 0930. Work note provided. Pt ambulated off unit in stable condition.
== END 2023-08-23 04:53 | disposition home or self-care (01) ==
PROVIDERS: Emergency Provider Internal Medicine; PCP Nurse Practitioner Family
DX: S42.101A Fracture of unspecified part of scapula, right shoulder, initial encounter for closed fracture (principal); Z79.899 Other long term (current) drug therapy; F17.210 Nicotine dependence, cigarettes, uncomplicated; W08.XXXA Fall from other furniture, initial encounter
CPT/HCPCS: 36415; 70450; 71260; 72125; 73030; 80053; 85025; 99285; Q9967

== ENCOUNTER 2023-08-27 09:58 | Outpatient (OUT) | payer OTHER, SELFPAY ==
--- NOTE | 2023-08-27 10:01 | US_ITS ---
The [address] [address] Patient Name: KALA WATTERS MRN: [id number] date: 2000 Sex: M Assigned Patient Location: US Current Patient Location: US Accession/Order Number: [id number] Exam Date: 08/27/2023 10:08 Report Date: 08/27/2023 11:23 At the request of: MAXIMO DIAZ Procedure: US thyroid EXAMINATION: US thyroid HISTORY: right thyroid nodule E04.1 COMPARISON: No relevant comparison available. TECHNIQUE: Sonographic images of the thyroid gland were obtained. FINDINGS: The right thyroid lobe measures 4.6 x 1.8 x 1.7 cm. Heterogeneous with 2 focal nodules the most suspicious: 2.7 x 1.8 x 1.4 cm. Solid, hypoechoic, wide, lobular margins, no calcifications, punctate calcifications. TR 5 The thyroid isthmus measures 0.4 cm. No focal nodule The left thyroid lobe is normal in size, contour and homogeneous echotexture measuring 5.2 x 1.5 1.7 cm. No focal nodules US/US thyroid IMPRESSION: 2.7 cm right thyroid TR 5 nodule. Ultrasound-guided fine-needle aspiration is recommended TI-RADS: The [employer] TI-RADS committee's white paper recommendations for thyroid lesions classified as TR5 (highly suspicious) are listed below: > 0.5 cm. Annual ultrasound follow-up for up to 5 years. > 1.0 cm. FNA. J. Am Maria T Radiol 2017;14:587-595. Electronically authenticated by: ADONIS MARTINEZ Date: 08/27/2023 11:23
--- OUTSIDE RECORDS SUMMARY | 2023-08-27 10:02 | XMS_ITS | CCD ---
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 IMPRESSION: No acute osseous abnormality. Normal [facility] CT Ankle - right WO contrast on [...] unremarkable. IMPRESSION IMPRESSION: No acute osseous abnormality. [facility] Radiology Study observation (narrative) [facility] CT Ankle - right WO contrast Ordered By: Orlando Ceja on 05-09-2022 [facility] Work Phone: No Panel Informationon 05-09 [...] ankle. Soft tissue swelling about the midfoot. [facility] No Panel InformationOrdered By: Ghulam Aguilar on 05-09-2022 [facility] Work Phone: XR ANKLE RIGHT 3+ [...] Soft tissue swelling about the midfoot. Normal [facility] XR Ankle - right 3 Viewson 1 Radiology [facility]narrative) [facility] 3 VIEWSon 10- [...] Soft tissue swelling about the midfoot. Normal [facility] XR Foot - right 3 Viewson Radiology Study observation (narrative) [facility] HAND RIGHT 3+ VIEWSon XR HAND RIGHT 3+ VIEWS EXAM: XR HAND RIG HT 3+ VIEWS HISTORY: hand pain COMPARISON: None. TECHNIQUE: X-ray FINDINGS: There is no fracture, dislocation, or other osseous abnormality. Joint spaces are preserved. No soft tissue calcifications. IMPRESSION: 1. Normal exam. Normal [facility] XR WRIST RIGHT 3 VIEWSon XR WRIST RIGHT 3 VIEWS EXAM: XR WRIST RIGHT 3 VIEWS HISTORY: right wrist pain COMPARISON: None. TECHNIQUE: X-ray FINDINGS: There is no fracture, dislocation, or other osseous abnormality. Joint spaces are preserved. No soft tissue calcifications. IMPRESSION: 1. Normal exam. Normal [facility] XR Hand - right 3 Viewson IMPRESSION: 1. Normal exam. RADIOLOGY EXAM: XR HAND RIGHT 3+ VIEWS HISTORY: hand pain COMPARISON: None. TECHNIQUE: X-ray FINDINGS: There is no fracture, dislocation, or other osseous abnormality. Joint spaces are preserved. No soft tissue calcifications. RADIOLOGY iVnicius Sheffield MD - 12/12/2021 EXAM: XR HAND RIGHT 3+ VIEWS HISTORY: hand pain COMPARISON: None. TECHNIQUE: X-ray FINDINGS: There is no fracture, dislocation, or other osseous abnormality. Joint spaces are preserved. No soft tissue calcifications. IMPRESSION IMPRESSION: 1. Normal exam. [facility] Radiology Study observation (narrative) [facility] XR Wrist - right 3 Viewson 0 [...] tissue calcifications. IMPRESSION IMPRESSION: 1. Normal exam. [facility] Radiology Study observation (narrative) [facility] XR Wrist - right 3 ViewsOrde red By: Vinicius Sheffield on 12-12-2021 [facility] Work Phone: ALCOHOLon 12-10-2021 Ethanol [Mass/Vol] mg/dL Normal 0-10 [facility] Comment on above: Result Comment: INTOXICATION >80 MG/DL FATAL >400 MG/DL ALCOHOL (ETHANOL),BLOODon Ethanol [Mass/Vol] mg/dL [facility] Comment on above: INTOXICATION >80 MG/DL FATAL >400 MG/DL CBCon 12-10-2021 ABSOLUTE BAS 0.0 10*3/uL Normal 0.0-0.2 [facility] ABSOLUTE EOS 0.20 10*3/uL Normal 0.0-0.7 [facility] ABSOLUTE NEUTROPHIL COUNT 3.7 10*3/uL Normal 1.4-6.5 [facility] Basophils/100 WBC (Bld) 0.4 % Normal 0.0-2.0 [facility] DTYPE AUTO DIFF Normal [facility] Eosinophils/100 WBC (Bld) 2.9 % Normal 0.0-11.0 [facility] Lymphocytes (Bld) [#/Vol] 0.80 10*3/uL Low 1.2-3.4 [facility] Lymphocytes/100 WBC (Bld) 16.4 % Low 20.0-55.0 [facility] Monocytes (Bld) [#/Vol] 0.5 10*3/uL Normal 0.0-0.7 [facility] Monocytes/100 WBC (Bld) 9.9 % Normal 0.0-10.0 [facility] Neutrophils/100 WBC (Bld) 70.4 % Normal 37.0-75.0 [facility] Erythrocyte distribution width (RBC) [Ratio] 12.9 % Normal 11.5-14.5 [facility] Hematocrit (Bld) [Volume fraction] 43.0 % Normal 42.0-52.0 [facility] Hemoglobin (Bld) [Mass/Vol] 15.0 g/dL Normal 14.0-18.0 [facility] MCH (RBC) [Entitic mass] 29.5 pg Normal 26.0-35.0 [facility] MCHC (RBC) [Mass/Vol] 34.9 g/dL Normal 27.0-37.0 [facility] MCV (RBC) [Entitic vol] 84.5 fL Normal 80.0-100.0 [facility] Platelet mean volume (Bld) [Entitic vol] 7.3 fL Low 7.4-11.0 [facility] Platelets (Bld) [#/Vol] 147 10*3/uL Normal 130.0-400.0 [facility] RBC (Bld) [#/Vol] 5.10 10*6/uL Normal 4.0-6.1 [facility] WBC (Bld) [#/Vol] 5.2 10*3/uL Normal 3.6-11.0 [facility] CBC, EDIF, PLATELETon 2021 ABSOLUTE BASOPHIL COUNT 0.0 10*3/uL 0.0 - 0.2 10*3/uL [facility] Basophils/100 WBC (Bld) 0.4 % 0.0 - 2.0 % [facility] Differential cell count method Nom (Bld) AUTO DIFF % [facility] Eosinophils (Bld) [#/Vol] 0.20 10*3/uL 0.0 - 0.7 10*3/uL [facility] Eosinophils/100 WBC (Bld) 2.9 % 0.0 - 11.0 % [facility] Erythrocyte distribution width (RBC) [Ratio] 12.9 % 11.5 - 14.5 % [facility] Hematocrit (Bld) [Volume fraction] 43.0 % 42.0 - 52.0 % [facility] Hemoglobin (Bld) [Mass/Vol] 15.0 g/dL [facility] Interpretation and review of laboratory results Abnormal [facility] Lymphocytes (Bld) [#/Vol] 0.80 10*3/uL Low 1.2 - 3.4 10*3/uL [facility] Lymphocytes/100 WBC (Bld) 16.4 % Low 20.0 - 55.0 % [facility] MCH (RBC) [Entitic mass] 29.5 pg 26.0 - 35.0 PG [facility] MCHC (RBC) [Mass/Vol] 34.9 g/dL [facility] MCV (RBC) [Entitic vol] 84.5 fL A [facility] Monocytes (Bld) [#/Vol] 0.5 10*3/uL 0.0 - 0.7 10*3/uL [facility] Monocytes/100 WBC (Bld) 9.9 % 0.0 - 10.0 % [facility] Neutrophils (Bld) [#/Vol] 3.7 10*3/uL 1.4 - 6.5 10*3/uL [facility] Neutrophils/100 WBC (Bld) 70.4 % 37.0 - 75.0 % [facility] Platelet mean volume (Bld) [Entitic vol] 7.3 fL Low [facility] Platelets (Bld) [#/Vol] 147 10*3/uL 130. 0 - 400.0 10*3/uL [facility] RBC (Bld) [#/Vol] 5.10 10*6/uL 4.0 - 6.1 10*6/uL [facility] WBC (Bld) [#/Vol] 5.2 10*3/uL 3.6 - 11.0 10*3/uL [facility] CHEM 7 FASTINGon 12-10-2021 Chloride [Moles/Vol] 106 mmol/L Normal 98-107 [facility] Comment on above: Result Comment: Plea se note: Triglyceride levels of 600mg/dL or higher may positively bias chloride results by approximately 2.1 mmol CO2 [Moles/Vol] 25 mmol/L Normal 22-30 [facility] Creatinine [Mass/Vol] 0.77 mg/dL Normal 0.7-1.2 [facility] EST. GFR, 161 ml/min/1.73sq.m Normal [facility] EST. GFR,Non 133 ml/min/1.73sq.m [facility] GFR Information Average GFR for 20-29 years old = 116. Normal [facility] Comment on above: Result Comment: [employer] javon Kidney disease, GFR = <60. Kidney failure, GFR = <15. The GFR estimate is not adjusted for extreme body surface area or acute process, nor has it been validated for women or ethnic groups other than and . Glucose [Mass/Vol] 109 mg/dL High 70-100 [facility] Comment on above: Result Comment: NORMAL <100 mg/dL PREDIABETES 101-126 mg/dL DIABETES 126 mg/dL or higher Potassium [Moles/Vol] 3.6 mmol/L Normal 3.5-5.1 [facility] Sodium [Moles/Vol] 137 mmol/L Normal 137-145 [facility] Urea nitrogen [Mass/Vol] 11 mg/dL Normal 7-20 [facility] CHEM 7 (LYTES,BUN,CREA,GLUC) on 12-10-2021 Chloride [Moles/Vol] 106 mmol/L [facility] Comment on above: Please note: Triglyc eride levels of 600mg/dL or higher may positively bias chloride results by approximately 2.1 mmol CO2 [Moles/Vol] 25 mmol/L [facility] Creatinine [Mass/Vol] 0.77 mg/dL [facility] GFR COMMENT Average GFR for 20-29 years old = 116. [facility] Comment on above: Chronic Kidney disea se, GFR = <60. Kidney failure, GFR = <15. The GFR estimate is not adjusted for extreme body surface area or acute process, nor has it been validated for women or ethnic groups other than and . GFR/1.73 sq M.predicted among blacks MDRD (S/P/Bld) [Vol rate/Area] 161 mL/min/{1.73_m2} ml/min/1.73sq. m [facility] GFR/1.73 sq M.predicted among non-blacks MDRD (S/P/Bld) [Vol rate/Area] 133 mL/min/{1.73_m2} ml/min/1.73sq. m [facility] Glucose post fast [Mass/Vol] 109 mg/dL High [facility] Comment on above: NORMAL <100 mg/dL PREDIABETES 101-126 mg/dL DIABETES 126 mg/dL or higher Interpretation and review of laboratory results Abnormal [facility] Potassium [Moles/Vol] 3.6 mmol/L [employer] Sodium [Moles/Vol] 137 mmol/L [facility] [employer] Urea nitrogen [Mass/Vol] 11 mg/dL [facility] CT ABDOMEN/PELVIS WITHOUT CO NTRASTon 12-10-2021 [...] OTHER: Negative. IMPRESSION: No acute abnormality Normal [facility] CT Abdomen and Pelvis WO con traston [...] OTHER: Negative. IMPRESSION IMPRESSION: No acute abnormality [facility] Radiology Study observation (narrative) [facility] [place] Abdomen and Pelvis WO con trastOrdered By: David Murphy on 12-10-2021 [facility] Work Phone: HEPATIC FUNCTION PANELon Albumin [Mass/Vol] 4.0 g/dL [facility] ALP [Catalytic activity/Vol] 48 U/L [facility] ALT [Catalytic activity/Vol] 16 U/L <50 IU/L [facility] AST [Catalytic activity/Vol] 24 U/L [facility] Bilirubin [Mass/Vol] 1.2 mg/dL [facility] Bilirubin.direct [Mass/Vol] 0.1 mg/dL [facility] Protein [Mass/Vol] 7.1 g/dL [facility] INFLUENZA A AND B, PCRon FLUAV and FLUBV Ag IF Nom (Unsp spec) Negative NEGATIVE [facility] FLUBV Ag IA Ql (Unsp spec) Negative NEGATIVE [facility] Comment on above: TESTING PERFORMED BY [facility] LACTATE, BLOODon 12-10-2021 Lactate [Moles/Vol] 0.8 mmol/L 0.7 - 2. 0 mmol/L [facility] LACTATE,BLOODon 12-10-2021 Lactate [Moles/Vol] 0.8 mmol/L Normal 0.7-2.0 [facility] LIPASEon 12-10-2021 Lipase [Catalytic activity/Vol] 36 U/L 23 - 300 U/L [facility] LIPASE,SERUMon 12-10-2021 LIPASE,SERUM 36 U/L Normal 23-300 [facility] LIVER PANELon 12-10-2021 Albumin [Mass/Vol] 4.0 g/dL Normal 2.9-5.3 [facility] ALP [Catalytic activity/Vol] 48 U/L Normal 38-126 [facility] ALT [Catalytic activity/Vol] 16 U/L Normal <50 [facility] AST [Catalytic activity/Vol] 24 U/L Normal 17-59 [facility] Bilirubin [Mass/Vol] 1.2 mg/dL Normal 0.2-1.3 [facility] Bilirubin.indirect [Mass/Vol] 0.1 mg/dL Normal 0-0.4 [facility] Protein [Mass/Vol] 7.1 g/dL Normal 6.3-8.2 [facility] NOVEL CORONAVIRUSon 12-11-19 22 NARRATIVE This test was performed using isothermal PHONG and has been approved as Emergency Use Authorization (EUA) for the qualitative detection [id number] nucleic acid. Normal [facility] SARS-CoV-2 (COVID-19) RNA PHONG+probe Ql (Unsp spec) Not detected Normal NOT DETECTED [facility] Comment on above: Result Comment: Nega tive [...] Use Authorization (EUA) for the qualitative detection [id number] nucleic acid. [facility] SARS-CoV-2 (COVID-19) RNA PHONG+probe Ql (Unsp spec) Not detected NOT DETECTED [facility] Comment on above: Negative results do [...] patient is critically ill or clinically deteriorating. [facility] No Panel Informationon 12-10 Interpretation and review of laboratory results Abnormal [facility] Portable XR Chest Views APon 12-10-2021 IMPRESSION: [...] No radiographic evidence for acute chest abnormality. [facility] Radiology Study observation (narrative) [facility] Portable XR Chest Views APOr dered By: Luis Stevenson on 12-10-2021 [facility] Work Phone: RAPID FLU Aon 12-10-2021 INFLUENZA A Negative Normal NEGATIVE [facility] INFLUENZA B Negative Normal NEGATIVE [facility] Comment on above: Result Comment: TEST ING PERFORMED BY PHONG RAPID TOX SCREEN,URINEon AMPHETAMINE Negative Normal NEGATIVE [facility] Comment on above: Result Comment: <500 ng/ml CUTOFF BARBITURATES Negative Normal NEGATIVE [facility] Comment on above: Result Comment: <200 ng/ml CUTOFF BENZODIAZEPINES Negative Normal NEGATIVE [facility] Comment on above: Result Comment: <150 ng/ml CUTOFF BUPRENORPHINE Negative Normal NEGATIVE [facility] Comment on above: Result Comment: <10 ng/ml CUTOFF CANNABINOIDS Positive Abnormal NEGATIVE [facility] Comment on above: Result Comment: <50 ng/ml CUTOFF *Unconfirmed Screening Result* Unconfirmed screening results are to be used only for medical treatment purposes. COCAINE Negative Normal NEGATIVE [facility] Comment on above: Result Comment: <150 ng/ml CUTOFF METHADONE Negative Normal NEGATIVE [facility] Comment on above: Result Comment: <200 ng/ml CUTOFF METHAMPHETAMINE Negative Normal NEGATIVE [facility] Comment on above: Result Comment: <500 ng/ml CUTOFF OPIATES Negative Normal NEGATIVE [facility] Comment on above: Result Comment: <100 ng/ml CUTOFF OXYCODONE Negative Normal NEGATIVE [facility] Comment on above: Result Comment: <100 ng/ml CUTOFF PHENCYCLIDINE Negative Normal NEGATIVE [facility] Comment on above: Result Comment: <25 ng/ml CUTOFF PROPOXYPHENE Negative Normal NEGATIVE [facility] Comment on above: Result Comment: <300 ng/ml CUTOFF TRICYCLIC ANTIDEPRESSANTS Negative Normal NEGATIVE [facility] Comment on above: Result Comment: <300 ng/ml CUTOFF TOXICOLOGY DRUG SCREEN, URIN Marcelino 12-10-2021 Amphetamine (U) [Mass/Vol] Negative NEGATIVE NG/ML [facility] Comment on above: <500 ng/ml CUTOFF Barbiturates Screen Ql (U) Negative NEGATIVE NG/ML [facility] Comment on above: <200 ng/ml CUTOFF Benzodiazepines Ql (U) Negative NEGATIVE NG/M L [facility] Comment on above: <150 ng/ml CUTOFF Benzoylecgonine Ql (U) Negative NEGATIVE NG/M L [facility] Comment on above: <150 ng/ml CUTOFF Buprenorphine Ql (U) Negative NEGATIVE NG/ML [facility] Comment on above: <10 ng/ml CUTOFF Cannabinoids Screen Ql (U) Positive Abnormal NEGATIVE NG/ML [facility] Comment on above: <50 ng/ml CUTOFF *Unconfirmed Screening Result* Unconfirmed screening results are to be used only for medical treatment purposes. Interpretation and review of laboratory results Abnormal [facility] Methadone Screen Ql (U) Negative NEGATIVE NG/ ML [facility] Comment on above: <200 ng/ml CUTOFF Methamphetamine (U) [Mass/Vol] Negative NEGATIVE NG/ML [facility] Comment on above: <500 ng/ml CUTOFF Opiates Screen Ql (U) Negative NEGATIVE NG/ML [facility] Comment on above: <100 ng/ml CUTOFF oxyCODONE Ql (U) Negative NEGATIVE NG/ML [facility] Comment on above: <100 ng/ml CUTOFF Phencyclidine Screen method >25 ng/mL Ql (U) Negative NEGATIVE NG/ML [facility] Comment on above: <25 ng/ml CUTOFF Propoxyphene+Norpropoxy phene Screen Ql (U) Negative NEGATIVE NG/ML [facility] Comment on above: <300 ng/ml CUTOFF Tricyclic antidepressants Screen Ql (U) Negative NEGATIVE NG/ML [facility] Comment on above: <300 ng/ml CUTOFF [facility] URINALYSIS, MACROon 12-11-19 22 Bilirubin Ql (U) Negative NEGATIVE [facility] Clarity (U) CLEAR CLEAR [facility] Color (U) YELLOW YELLOW [facility] Glucose Test strip (U) [Mass/Vol] Negative NEGATIVE mg/dl [facility] Hemoglobin Ql (U) Negative NEGATIVE [facility] Ketones (U) [Mass/Vol] TRACE Abnormal NEGATIVE mg/d l [facility] Leukocyte esterase Test strip Ql (U) Negative NEGATIVE [facility] Nitrite Ql (U) Negative NEGATIVE [facility] pH (U) 6.0 [pH] [facility] Protein Ql (U) TRACE Abnormal NEGATIVE mg/dl [facility] Specific gravity (U) [Rel density] >1.030 High [facility] Urobilinogen (U) [Mass/Vol] 1.0 mg/dL [facility] URINE MACROSCOPICon 12-11-19 22 Bilirubin Ql (U) Negative Normal NEGATIVE [facility] Clarity (U) CLEAR Normal CLEAR [facility] Color (U) YELLOW Normal YELLOW [facility] Glucose Ql (U) Negative Normal NEGATIVE [facility] pH (U) 6.0 [pH] Normal 5.0-7.0 [facility] URINE HEMOGLOBIN Negative Normal NEGATIVE [facility] URINE KETONE TRACE Abnormal NEGATIVE [facility] URINE LEUKOTEST Negative Normal NEGATIVE [facility] URINE NITRATES Negative Normal NEGATIVE [facility] URINE SPEC GRAVITY >1.030 High 1.010-1.025 [facility] URINE TOTAL PROTEIN TRACE Abnormal NEGATIVE [facility] Urobilinogen Qn (U) 1.0 {Saud'U}/dL Normal 0.2-1.0 [facility] URINE MICROSCOPICon 12-11-19 22 Bacteria LM.HPF (Urine sed) [#/Area] Negative Normal NEGATIVE [facility] CASTS NONE Normal NONE [facility] CRYSTAL NONE Normal NONE [facility] Epithelial cells LM Ql (Urine sed) NONE Normal [facility] Mucus Ql (Urine sed) 1+ Abnormal NEGATIVE [facility] URINE COMMENT CULTURE CRITERIA NOT MET, NO CULTURE PERFORMED. Normal [facility] URINE RBC'S 1 TO 5 Normal NEGATIVE [facility] URINE WBC'S Negative Normal NEGATIVE [facility] Bacteria LM.HPF (Urine sed) [#/Area] Negative NEGATIVE [facility] Casts LM.LPF (Urine sed) [#/Area] NONE NONE /LPF [facility] Crystals LM Nom (Urine sed) NONE NONE [facility] Epithelial cells LM Ql (Urine sed) NONE /HPF [facility] Mucus Ql (Urine sed) 1+ Abnormal NEGATIVE [facility] RBC LM.HPF (Urine sed) [#/Area] 1 TO 5 NEGATIVE /HPF [facility] Urine sediment comments LM Dillon (Urine sed) CULTURE CRITERIA NOT MET, NO CULTURE PERFORMED. [facility] WBC LM.HPF (Urine sed) [#/Area] Negative NEGATIVE /HPF [facility] XR CHEST AP PORTABLEon 12-10 XR CHEST AP PORTABLE EXAM: XR CHEST AP PORTABLE HISTORY: weakness COMPARISON: None available TECHNIQUE: Single frontal view chest x-ray FINDINGS: No lobar consolidation, large pleural effusions, pneumothorax, or acute bony abnormality. Cardiac size unremarkable. IMPRESSION: No radiographic evidence for acute chest abnormality. Normal [facility] Vital Signs Date Time Vital Sign Value Performing Clinician Facility 05-13-2023 09:09-0400 Body height 165.1 cm PHYSICIAN NO [facility] 05-13-2023 09:09-0400 Body temperature 98.4 [degF] PHYSICIAN NO [facility] 05-13-2023 09:09-0400 Body weight 74.45 kg PHYSICIAN NO [facility] 05-13-2023 09:09-0400 Diastolic blood pressure 94 mm[Hg] PHYSICIAN NO [facility] 05-13-2023 09:09-0400 Heart rate 64 /min PHYSICIAN NO [facility] 05-13-2023 09:09-0400 Respiratory rate 20 /min PHYSICIAN NO [facility] 05-13-2023 09:09-0400 SaO2% (BldA) [Mass fraction] 100 % PHYSICIAN NO [facility] 05-13-2023 09:09-0400 Systolic blood pressure 134 mm[Hg] PHYSICIAN NO [facility] 05-13-2022 15:12-0400 Diastolic blood pressure 76 mm[Hg] Mariela Drake MD Work Phone: [facility] 05-13-2022 15:12-0400 Heart rate 62 /min Mariela Drake MD Work Phone: [facility] 05-13-2022 15:12-0400 Respiratory rate 16 /min Mariela Drake MD Work Phone: [facility] 05-13-2022 15:12-0400 Systolic blood pressure 125 mm[Hg] Mariela Drake MD Work Phone: [facility] 05-13-2022 14:35-0400 Body height 165.1 cm Mariela Drake MD Work Phone: [facility] 05-13-2022 14:34-0400 Body temperature 98.4 [degF] Mariela Drake MD Work Phone: [facility] 05-13-2022 14:34-0400 SaO2% (BldA) [Mass fraction] 100 % Mariela Drake MD Work Phone: [facility] 05-09-2022 12:44-0400 Diastolic blood pressure 70 mm[Hg] William Del Castillo MD Work Phone: [facility] 05-09-2022 12:44-0400 Heart rate 50 /min William Del Castillo MD Work Phone: [facility] 05-09-2022 12:44-0400 SaO2% (BldA) [Mass fraction] 98 % William Del Castillo MD Work Phone: [facility] 05-09-2022 12:44-0400 Systolic blood pressure 124 mm[Hg] William Del Castillo MD Work Phone: [facility] 05-09-2022 11:51-0400 Body height 165.1 cm William Del Castillo MD Work Phone: [facility] 05-09-2022 11:40-0400 Body temperature 98.71 [degF] William Del Castillo MD Work Phone: [facility] 05-09-2022 11:40-0400 Respiratory rate 16 /min William Del Castillo MD Work Phone: [facility] 12-12-2021 23:57-0400 Diastolic blood pressure 67 mm[Hg] Aida Masters MD Work Phone: [facility] 12-12-2021 23:57-0400 Heart rate 74 /min Aida Masters MD Work Phone: [facility] 12-12-2021 23:57-0400 SaO2% (BldA) [Mass fraction] 96 % Aida Masters MD Work Phone: [facility] 12-12-2021 23:57-0400 Systolic blood pressure 109 mm[Hg] Aida Masters MD Work Phone: [facility] 12-12-2021 22:38-0400 Body temperature 98.4 [degF] Aida Masters MD Work Phone: [facility] 12-12-2021 22:38-0400 Respiratory rate 17 /min Aida Masters MD Work Phone: [facility] 12-10-2021 08:12-0400 Diastolic blood pressure 54 mm[Hg] Gorge Cleaning MD Work Phone: [facility] 12-10-2021 08:12-0400 Heart rate 76 /min Gorge Cleaning MD Work Phone: [facility] 12-10-2021 08:12-0400 Respiratory rate 18 /min Gorge Cleaning MD Work Phone: [facility] 12-10-2021 08:12-0400 SaO2% (BldA) [Mass fraction] 97 % Gorge Cleaning MD Work Phone: [facility] 12-10-2021 08:12-0400 Systolic blood pressure 101 mm[Hg] Gorge Cleaning MD Work Phone: [facility] 12-10-2021 05:18-0400 Body temperature 98.49 [degF] Gorge Cleaning MD Work Phone: [facility] Encounters Encounter Date Encounter Type Care Provider Facility Start: 05-13-2023 End: 05-13-2023 Emergency department patient visit PHYSICIAN ABDULAZIZ [facility] Work Phone: Start: 05-13-2022 End: 05-13-2022 [facility] Start: 05-13-2022 End: 05-13-2022 Emergency department patient visit Mariela Drake MD Work Phone: [facility] Start: 05-09-2022 End: 05-09-2022 Emergency department patient visit WILLIAM DEL CASTILLO [facility] Start: 05-09-2022 End: 05-09-2022 Emergency department patient visit William Del Castillo MD Work Phone: [facility] Start: 12-13-2021 End: 12-13-2021 Emergency department patient visit AIDA MASTERS [facility] Start: 12-12-2021 End: 12-13-2021 Emergency department patient visit Aida Masters MD Work Phone: [facility] Start: 12-10-2021 End: 12-10-2021 Emergency department patient visit GORGE CLEANING [facility] Start: 12-10-2021 End: 12-10-2021 Emergency department patient visit Gorge Cleaning MD Work Phone: [facility] Procedures Date Procedure Procedure Detail [...] Detail Author Start: 03-31-2031 Tetanus vaccination TETANUS [facility] Start: 05-22-2022 End: 05-22-2022 Patient encounter procedure 05/22/2022 Office Visit Orthopaedics Luis Miguel MD [address] [place] [address] [place] [address] [facility] Start: 04-03-2022 Influenza [facility] Start: 08-08-2013 HIV screening HIV SCREENING DISCUSSION [facility] Start: 2009 Vaccination for human papillomavirus HPV VACCINE ADOL (1 - Male 2-dose series) [facility] Start: 2004 PNEUMOCOCCAL VACCINE SERIES (1 - PCV) PNEUMOCOCCAL VACCINE SERIES (1 - PCV) [facility] Start: 2003 COVID-19 VACCINE (#1) COVID[facility]19 VACCINE (#[facility] Start: 1998 COVID-19 VACCINE (#1) COVID-19 VACCINE (#1) [facility] Start: 1998 Hepatitis C antibody, confirmatory test HEPATITIS C VIRUS SCREENING [facility] Start: 1998 Hepatitis C screening HEPATITIS C VIRUS SCREENING [facility] Patient Education Migraines in adults [facility] Work Phone: Patient referral [facility] Work Phone: Immunizations Immunization Date Immunization Notes Care Provider Fa cili 03-31-2021 tetanus toxoid, redu gil diphtheria toxoid, and acellular pertussis vaccine, adsorbed Gorge Cleaning MD Work Phone: [facility] 05-21-2009 influenza virus vaccine, unspecified formulation Gorge Cleaning MD Work Phone: [facility] Payers Date Payer Category Payer Self-pay 2023 Unknown [id number] 2021 Unknown [employer] [place] [id number] 2021-Present [address] [place] [address] [id number] 2021 Unknown [id number] 1998 Unknown [id number] 1998 Unknown [id number] 1998 Unknown [id number] 1998 Unknown [id number] Unknown [id number] Social History Date Type Detail Facility Start: 03-31-2021 [facility] Start: 03-31-2021 Cigarettes smoked current (pack per day) - Reported 0.5 [facility] Start: 03-31-2021 Tobacco use and exposure [facility] Start: 12-10-2021 End: 05-13-2022 Alcohol intake Current drinker of alcohol (finding) [facility] Start: 03-31-2021 History SDOH Alcohol Comment occassional [facility] Start: 1998 Sex Assigned At Not on file [facility] Start: 11-30-2021 End: 05-13-2022 Exposure to SARS-CoV-2 (event) Not sure [facility] History of tobacco use Cigarette Smoker [facility] [employer] Start: 05-13-2023 Tobacco smoking stat [facility] Smoker (finding) [facility] Start: 1998 Sex Assigned At Male F [facility] Clinical Notes 12-10-2021 to 05-13-2022 Yocasta Kim [...] time. VSS, RR is regular and unlabored. Geyser was steady on crutches. [facility] 05-13-2022 Emergency department Note At bedside to discharge patient. All paperwork gone over. Denies any questions at this time. VSS, RR is regular and unlabored. Geyser was steady on crutches. To ED with report of right foot pain. No improvement since last visit. States aggravated by standing on it at work. One dose of ibuprofen this morning. Reiterated the importance of appropriate use of NSAIDS for pain relief. documented in this encounter [facility] 05-13-2022 Hospital Discharg e instructions Mariela Drake MD - 05/13/2022 3:01 PM EDT Follow up with orthopedic surgery. Return to ED if we can further assist you. documented in this encounter [facility] 05-13-2022 Emergency department Note To ED with report of right foot pain. No improvement since last visit. States aggravated by standing on it at work. One dose of ibuprofen this morning. Reiterated the importance of appropriate use of NSAIDS for pain relief. [facility] 05-09-2022 Emergency department Note Bedside to apply RUDI wrap and air cast. Tolerated well. Voices an understanding of wearing.Work note and discharge papers provided. Denies concerns/questions. Ambulates out of ED with slight limp, respirs even and unlabored. [facility] 05-09-2022 Emergency department Note Bedside to [...] Use Authorization (EUA) for the qualitative detection [id number]-[id number]-3 nucleic acid. CBC, EDIF, PLATELET Result Value [...] YELLOW YELLOW APPEARANCE, URINE CLEAR CLEAR Specific [place], Urine >1.030 (H) 1.010 - 1.025 PH [...] ankle and foot. documented in this encounter [facility] 05-09-2022 Physician Emergency department Note Images from the original note were not included. Emergency Department Report [facility] Service Date:.05/09/22 PCP: [...] Use Authorization (EUA) for the qualitative detection tpDHJT-ThY-0 nucleic acid. CBC, EDIF, PLATELET Result Value [...] YELLOW YELLOW APPEARANCE, URINE CLEAR CLEAR Specific [place], Urine >1.030 (H) 1.010 - 1.025 PH [...] orthopedics as an outpatient work excuse provided. [facility] Number of Diagnoses or Management Options [...] . William Del Castillo MD 05/09/22 1316 [facility] 05-09-2022 Emergency department Note Ice applied to right ankle and foot. [facility] 12-12-2021 Emergency department Note Rudi wrap applied to R wrist. Discharge instructions reviewed and given to pt. Denies questions. Pt a&o, respirations even and unlabored. Exits Ed w/ steady gait. [facility] 12-12-2021 Emergency department Note Rudi wrap applied to R wrist. Discharge instructions reviewed and given to pt. Denies questions. Pt a&o, respirations even and unlabored. Exits Ed w/ steady gait. Ice Bag applied X-ray at bedside Emergency Department Report [facility] Service Date:.12/12/21 PCP: No primary [...] Use Authorization (EUA) for the qualitative detection buPPAQ-VtF-1 nucleic acid. CBC, EDIF, PLATELET Result Value [...] YELLOW YELLOW APPEARANCE, URINE CLEAR CLEAR Specific [place], Urine >1.030 (H) 1.010 - 1.025 PH [...] MD 12/12/21 2346 documented in this encounter [facility] 12-12-2021 Hospital Discharg e instructions Aida [...] be sent through Care Everywhere.RICE: General Info (Icelandic)Hand Sprain (Icelandic)Wrist Sprain (Icelandic)documented in this encounter [facility] 12-12-2021 Emergency department Note Ice Bag applied [facility] 12-12-2021 Emergency department Note X-ray at bedside [facility] 12-12-2021 Physician Emergency department Note Emergency Department Report [facility] Service Date:.12/12/21 PCP: [...] Use Authorization (EUA) for the qualitative detection opMURF-VuN-6 nucleic acid. CBC, EDIF, PLATELET Result Value [...] YELLOW YELLOW APPEARANCE, URINE CLEAR CLEAR Specific [place], Urine >1.030 (H) 1.010 - 1.025 PH [...] . . Aida Masters MD 12/12/21 2346 [facility] Work Phone: 12-10-2021 Emergency department Note [...] complete dictation. Fabrice Dougherty DO 12/10/21 0[address] [employer] [facility] Work Phone: 12-10-2021 Emergency department Note [id number] [...] or dietary supplements. documented in this encounter [facility] 12-10-2021 Emergency department Note Pt reports nausea still present. Dr. Cleaning aware. [facility] 12-10-2021 Hospital Discharg e instructions Gorge [...] attachments cannot be sent through Care Everywhere.Gastroenteritis (Icelandic)documented in this encounter [facility] 12-10-2021 Emergency department Note Pt aware of UA order and states unable to urinate at this time. [facility] 12-10-[address] Cleaning at bedside. [facility] 12-10-2021 Emergency department Note Patient denies changes to medications, diet, or dietary supplements. [facility] Evaluation note Diagnosis Gastroenteritis- Primary Other and unspecified noninfectious gastroenteritis and colitis [facility] Diagnosis Sprain of right wrist, initial encounter- Primary Sprain of right hand, initial encounter [facility] Diagnosis Sprain of right foot, initial encounter- Primary Sprain of right ankle, unspecified ligament, initial encounter [facility] Diagnosis Injury of right foot, subsequent encounter- Primary [facility] noteNo assessment information [facility] Phone: Hospital Discharge instructions* Attachments The following attachments cannot be sent through Care Everywhere. * Ankle Sprain (Icelandic) * RICE: General Info (I[place]ic) [facility] for [facility] (narrative)* Consultation (Routine) - New Request Specialty Diagnoses / Procedures Referred By Contac t Referred To Contact Family Medicine Diagnoses Gastroenteritis Gorge Cleaning MD [address] [place] [address] Referral ID Status Reason Start Date Expiration Date V isits Requested Visits Authorized [id number] New Request 12/10/2021 01/04/2023 1 1 [facility] for referral (narrative)* Consultation (Urgent) - New Request Specialty Diagnoses / Procedures Referred By Contac t Referred To Contact Orthopaedic Surgery Diagnoses Sprain of right ankle, unspecified ligament, initial encounter Sprain of right foot, initial encounter William Del Castillo MD [address] [place] [address] Luis Miguel MD [address] [place] [address] [place] [address] Referral ID Status Reason Start Date Expiration Date V isits Requested Visits Authorized [id number] New Request 05/09/2022 06/03/2023 1 1 [facility] for referral (narrative)* Consultation (Routine) - New Request Specialty Diagnoses / Procedures Referred By Contac t Referred To Contact Orthopaedic Surgery Diagnoses Injury of right foot, subsequent encounter Mariela Drake MD [address] [place] [address] Referral ID Status Reason Start Date Expiration Date V isits Requested Visits Authorized [id number] New Request 05/13/2022 06/07/2023 1 1 T [facility] Summary Purpose Family History No Family [...] DATE CREATED AUTHOR AUTHOR'S AQUILINO ATION 07/15/2023 [facility] Care Teams (unrecognized sec tion and content) [...] BE BASED ON THE PRIMARY CLINICAL RECORDS. [employer] [facility] provides no warranty or guarantee of the accuracy or completeness of information in this document.
== END 2023-08-27 09:59 | disposition home or self-care (01) ==
LOC: US 09:58
PROVIDERS: PCP Nurse Practitioner Family; Visit Provider Nurse Practitioner Family
DX: E04.1 Nontoxic single thyroid nodule (principal)
CPT/HCPCS: 76536

== ENCOUNTER 2023-08-28 11:15 | Emergency (ER) | payer OTHER, SELFPAY ==
--- OUTSIDE RECORDS SUMMARY | 2023-08-28 11:24 | XMS_ITS | CCD ---
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 IMPRESSION: No acute osseous abnormality. Normal [facility] CT Ankle - right WO contrast on [...] unremarkable. IMPRESSION IMPRESSION: No acute osseous abnormality. [facility] Radiology Study observation (narrative) [facility] CT Ankle - right WO contrast Ordered By: Orlando Ceja on 05-09-2022 [facility] Work Phone: No Panel Informationon 05-09 IMPRESSION: [...] ankle. Soft tissue swelling about the midfoot. [facility] No Panel InformationOrdered By: hGulam Aguilra on 05-09-2022 [facility] Work Phone: XR ANKLE RIGHT 3+ VIEWSon [...] Soft tissue swelling about the midfoot. Normal [facility] XR Ankle - right 3 [facility] 1 Radiology Study observation (narrative) [facility] FOOT RIGHT 3 VIEWSon 10- [...] Soft tissue swelling about the midfoot. Normal [facility] XR Foot - right 3 [facility] Radiology Study observation (narrative) [facility] HAND RIGHT 3+ VIEWSon XR HAND RIGHT 3+ VIEWS EXAM: XR HAND RIG HT 3+ VIEWS HISTORY: hand pain COMPARISON: None. TECHNIQUE: X-ray FINDINGS: There is no fracture, dislocation, or other osseous abnormality. Joint spaces are preserved. No soft tissue calcifications. IMPRESSION: 1. Normal exam. Normal [facility] XR WRIST RIGHT 3 VIEWSon XR WRIST RIGHT 3 VIEWS EXAM: XR WRIST RIGHT 3 VIEWS HISTORY: right wrist pain COMPARISON: None. TECHNIQUE: X-ray FINDINGS: There is no fracture, dislocation, or other osseous abnormality. Joint spaces are preserved. No soft tissue calcifications. IMPRESSION: 1. Normal exam. Normal [facility] XR Hand - right 3 [facility] IMPRESSION: [...] tissue calcifications. IMPRESSION IMPRESSION: 1. Normal exam. [facility] Radiology Study observation (narrative) [facility] XR Wrist - right 3 Viewson 0 [...] tissue calcifications. IMPRESSION IMPRESSION: 1. Normal exam. [facility] Radiology Study observation (narrative) [facility] XR Wrist - right 3 ViewsOrde red By: Vinicius Sheffield on 12-12-2021 [facility] Work Phone: ALCOHOLon 12-10-2021 Ethanol [Mass/Vol] mg/dL Normal 0-10 [facility] Comment on above: Result Comment: INTOXICATION >80 MG/DL FATAL >400 MG/DL ALCOHOL (ETHANOL),BLOODon Ethanol [Mass/Vol] mg/dL [facility] Comment on above: INTOXICATION >80 MG/DL FATAL >400 MG/DL CBCon 12-10-2021 ABSOLUTE BAS 0.0 10*3/uL Normal 0.0-0.2 [facility] ABSOLUTE EOS 0.20 10*3/uL Normal 0.0-0.7 [facility] ABSOLUTE NEUTROPHIL COUNT 3.7 10*3/uL Normal 1.4-6.5 [facility] Basophils/100 WBC (Bld) 0.4 % Normal 0.0-2.0 [facility] DTYPE AUTO DIFF Normal [facility] Eosinophils/100 WBC (Bld) 2.9 % Normal 0.0-11.0 [facility] Lymphocytes (Bld) [#/Vol] 0.80 10*3/uL Low 1.2-3.4 [facility] Lymphocytes/100 WBC (Bld) 16.4 % Low 20.0-55.0 [facility] Monocytes (Bld) [#/Vol] 0.5 10*3/uL Normal 0.0-0.7 [facility] Monocytes/100 WBC (Bld) 9.9 % Normal 0.0-10.0 [facility] Neutrophils/100 WBC (Bld) 70.4 % Normal 37.0-75.0 [facility] Erythrocyte distribution width (RBC) [Ratio] 12.9 % Normal 11.5-14.5 [facility] Hematocrit (Bld) [Volume fraction] 43.0 % Normal 42.0-52.0 [facility] Hemoglobin (Bld) [Mass/Vol] 15.0 g/dL Normal 14.0-18.0 [facility] MCH (RBC) [Entitic mass] 29.5 pg Normal 26.0-35.0 [facility] MCHC (RBC) [Mass/Vol] 34.9 g/dL Normal 27.0-37.0 [facility] MCV (RBC) [Entitic vol] 84.5 fL Normal 80.0-100.0 [facility] Platelet mean volume (Bld) [Entitic vol] 7.3 fL Low 7.4-11.0 [facility] Platelets (Bld) [#/Vol] 147 10*3/uL Normal 130.0-400.0 [facility] RBC (Bld) [#/Vol] 5.10 10*6/uL Normal 4.0-6.1 [facility] WBC (Bld) [#/Vol] 5.2 10*3/uL Normal 3.6-11.0 [facility] CBC, EDIF, PLATELETon 2021 ABSOLUTE BASOPHIL COUNT 0.0 10*3/uL 0.0 - 0.2 10*3/uL [facility] Basophils/100 WBC (Bld) 0.4 % 0.0 - 2.0 % [facility] Differential cell count method Nom (Bld) AUTO DIFF % [facility] Eosinophils (Bld) [#/Vol] 0.20 10*3/uL 0.0 - 0.7 10*3/uL [facility] Eosinophils/100 WBC (Bld) 2.9 % 0.0 - 11.0 % [facility] Erythrocyte distribution width (RBC) [Ratio] 12.9 % 11.5 - 14.5 % [facility] Hematocrit (Bld) [Volume fraction] 43.0 % 42.0 - 52.0 % [facility] Hemoglobin (Bld) [Mass/Vol] 15.0 g/dL [facility] Interpretation and review of laboratory results Abnormal [facility] Lymphocytes (Bld) [#/Vol] 0.80 10*3/uL Low 1.2 - 3.4 10*3/uL [facility] Lymphocytes/100 WBC (Bld) 16.4 % Low 20.0 - 55.0 % [facility] MCH (RBC) [Entitic mass] 29.5 pg 26.0 - 35.0 PG [facility] MCHC (RBC) [Mass/Vol] 34.9 g/dL [facility] MCV (RBC) [Entitic vol] 84.5 fL A [facility] Monocytes (Bld) [#/Vol] 0.5 10*3/uL 0.0 - 0.7 10*3/uL [facility] Monocytes/100 WBC (Bld) 9.9 % 0.0 - 10.0 % [facility] Neutrophils (Bld) [#/Vol] 3.7 10*3/uL 1.4 - 6.5 10*3/uL [facility] Neutrophils/100 WBC (Bld) 70.4 % 37.0 - 75.0 % [facility] Platelet mean volume (Bld) [Entitic vol] 7.3 fL Low [facility] Platelets (Bld) [#/Vol] 147 10*3/uL 130. 0 - 400.0 10*3/uL [facility] RBC (Bld) [#/Vol] 5.10 10*6/uL 4.0 - 6.1 10*6/uL [facility] WBC (Bld) [#/Vol] 5.2 10*3/uL 3.6 - 11.0 10*3/uL [facility] CHEM 7 FASTINGon 12-10-2021 Chloride [Moles/Vol] 106 mmol/L Normal 98-107 [facility] Comment on above: Result Comment: Plea se note: Triglyceride levels of 600mg/dL or higher may positively bias chloride results by approximately 2.1 mmol CO2 [Moles/Vol] 25 mmol/L Normal 22-30 [facility] Creatinine [Mass/Vol] 0.77 mg/dL Normal 0.7-1.2 [facility] EST. GFR, 161 ml/min/1.73sq.m Normal [facility] EST. GFR,Non 133 ml/min/1.73sq.m [facility] GFR Information Average GFR for 20-29 years old = 116. Normal [facility] Comment on above: Result Comment: [employer]ist javon Kidney disease, GFR = <60. Kidney failure, GFR = <15. The GFR estimate is not adjusted for extreme body surface area or acute process, nor has it been validated for women or ethnic groups other than and . Glucose [Mass/Vol] 109 mg/dL High 70-100 [facility] Comment on above: Result Comment: NORMAL <100 mg/dL PREDIABETES 101-126 mg/dL DIABETES 126 mg/dL or higher Potassium [Moles/Vol] 3.6 mmol/L Normal 3.5-5.1 [facility] Sodium [Moles/Vol] 137 mmol/L Normal 137-145 [facility] Urea nitrogen [Mass/Vol] 11 mg/dL Normal 7-20 [facility] CHEM 7 (LYTES,BUN,CREA,GLUC) on 12-10-2021 Chloride [Moles/Vol] 106 mmol/L [facility] Comment on above: Please note: Triglyc eride levels of 600mg/dL or higher may positively bias chloride results by approximately 2.1 mmol CO2 [Moles/Vol] 25 mmol/L [facility] Creatinine [Mass/Vol] 0.77 mg/dL [facility] GFR COMMENT Average GFR for 20-29 years old = 116. [facility] Comment on above: Chronic Kidney disea se, GFR = <60. Kidney failure, GFR = <15. The GFR estimate is not adjusted for extreme body surface area or acute process, nor has it been validated for women or ethnic groups other than and . GFR/1.73 sq M.predicted among blacks MDRD (S/P/Bld) [Vol rate/Area] 161 mL/min/{1.73_m2} ml/min/1.73sq. m [facility] GFR/1.73 sq M.predicted among non-blacks MDRD (S/P/Bld) [Vol rate/Area] 133 mL/min/{1.73_m2} ml/min/1.73sq. m [facility] Glucose post fast [Mass/Vol] 109 mg/dL High [facility] Comment on above: NORMAL <100 mg/dL PREDIABETES 101-126 mg/dL DIABETES 126 mg/dL or higher Interpretation and review of laboratory results Abnormal [facility] Potassium [Moles/Vol] 3.6 mmol/L [employer] Sodium [Moles/Vol] 137 mmol/L [facility] Urea nitrogen [Mass/Vol] 11 mg/dL [facility] CT ABDOMEN/PELVIS WITHOUT CO NTRASTon [...] OTHER: Negative. IMPRESSION: No acute abnormality Normal [facility] CT Abdomen and Pelvis WO con traston [...] OTHER: Negative. IMPRESSION IMPRESSION: No acute abnormality [facility] Radiology Study observation (narrative) [facility] CT Abdomen and Pelvis WO con trastOrdered By: David Murphy on 12-10-2021 [facility] Work Phone: HEPATIC FUNCTION PANELon Albumin [Mass/Vol] 4.0 g/dL [facility] ALP [Catalytic activity/Vol] 48 U/L [facility] ALT [Catalytic activity/Vol] 16 U/L <50 IU/L [facility] AST [Catalytic activity/Vol] 24 U/L [facility] Bilirubin [Mass/Vol] 1.2 mg/dL [facility] Bilirubin.direct [Mass/Vol] 0.1 mg/dL [facility] Protein [Mass/Vol] 7.1 g/dL [facility] INFLUENZA A AND B, PCRon FLUAV and FLUBV Ag IF Nom (Unsp spec) Negative NEGATIVE [facility] FLUBV Ag IA Ql (Unsp spec) Negative NEGATIVE [facility] Comment on above: TESTING PERFORMED BY [facility] LACTATE, BLOODon 12-10-2021 Lactate [Moles/Vol] 0.8 mmol/L 0.7 - 2. 0 mmol/L [facility] LACTATE,BLOODon 12-10-2021 Lactate [Moles/Vol] 0.8 mmol/L Normal 0.7-2.0 [facility] LIPASEon 12-10-2021 Lipase [Catalytic activity/Vol] 36 U/L 23 - 300 U/L [facility] LIPASE,SERUMon 12-10-2021 LIPASE,SERUM 36 U/L Normal 23-300 [facility] LIVER PANELon 12-10-2021 Albumin [Mass/Vol] 4.0 g/dL Normal 2.9-5.3 [facility] ALP [Catalytic activity/Vol] 48 U/L Normal 38-126 [facility] ALT [Catalytic activity/Vol] 16 U/L Normal <50 [facility] AST [Catalytic activity/Vol] 24 U/L Normal 17-59 [facility] Bilirubin [Mass/Vol] 1.2 mg/dL Normal 0.2-1.3 [facility] Bilirubin.indirect [Mass/Vol] 0.1 mg/dL Normal 0-0.4 [facility] Protein [Mass/Vol] 7.1 g/dL Normal 6.3-8.2 [facility] NOVEL CORONAVIRUSon 12-11-19 22 NARRATIVE This test was performed using isothermal PHONG and has been approved as Emergency Use Authorization (EUA) for the qualitative detection [id number] nucleic acid. Normal [facility] SARS-CoV-2 (COVID-19) RNA PHONG+probe Ql (Unsp spec) Not detected Normal NOT DETECTED [facility] Comment on above: Result Comment: Nega tive [...] Use Authorization (EUA) for the qualitative detection [id number] nucleic acid. [facility] SARS-CoV-2 (COVID-19) RNA PHONG+probe Ql (Unsp spec) Not detected NOT DETECTED [facility] Comment on above: Negative results do not [...] patient is critically ill or clinically deteriorating. [facility] No Panel Informationon 12-10 Interpretation and review of laboratory results Abnormal [facility] Portable XR Chest Views APon 12-10-2021 IMPRESSION: [...] No radiographic evidence for acute chest abnormality. [facility] Radiology Study observation (narrative) [facility] Portable XR Chest Views APOr dered By: Luis Stevenson on 12-10-2021 [facility] Work Phone: RAPID FLU Aon 12-10-2021 INFLUENZA A Negative Normal NEGATIVE [facility] INFLUENZA B Negative Normal NEGATIVE [facility] Comment on above: Result Comment: TEST ING PERFORMED BY PHONG RAPID TOX SCREEN,URINEon AMPHETAMINE Negative Normal NEGATIVE [facility] Comment on above: Result Comment: <500 ng/ml CUTOFF BARBITURATES Negative Normal NEGATIVE [facility] Comment on above: Result Comment: <200 ng/ml CUTOFF BENZODIAZEPINES Negative Normal NEGATIVE [facility] Comment on above: Result Comment: <150 ng/ml CUTOFF BUPRENORPHINE Negative Normal NEGATIVE [facility] Comment on above: Result Comment: <10 ng/ml CUTOFF CANNABINOIDS Positive Abnormal NEGATIVE [facility] Comment on above: Result Comment: <50 ng/ml CUTOFF *Unconfirmed Screening Result* Unconfirmed screening results are to be used only for medical treatment purposes. COCAINE Negative Normal NEGATIVE [facility] Comment on above: Result Comment: <150 ng/ml CUTOFF METHADONE Negative Normal NEGATIVE [facility] Comment on above: Result Comment: <200 ng/ml CUTOFF METHAMPHETAMINE Negative Normal NEGATIVE [facility] Comment on above: Result Comment: <500 ng/ml CUTOFF OPIATES Negative Normal NEGATIVE [facility] Comment on above: Result Comment: <100 ng/ml CUTOFF OXYCODONE Negative Normal NEGATIVE [facility] Comment on above: Result Comment: <100 ng/ml CUTOFF PHENCYCLIDINE Negative Normal NEGATIVE [facility] Comment on above: Result Comment: <25 ng/ml CUTOFF PROPOXYPHENE Negative Normal NEGATIVE [facility] Comment on above: Result Comment: <300 ng/ml CUTOFF TRICYCLIC ANTIDEPRESSANTS Negative Normal NEGATIVE [facility] Comment on above: Result Comment: <300 ng/ml CUTOFF TOXICOLOGY DRUG SCREEN, URIN Marcelino 12-10-2021 Amphetamine (U) [Mass/Vol] Negative NEGATIVE NG/ML [facility] Comment on above: <500 ng/ml CUTOFF Barbiturates Screen Ql (U) Negative NEGATIVE NG/ML [facility] Comment on above: <200 ng/ml CUTOFF Benzodiazepines Ql (U) Negative NEGATIVE NG/M L [facility] Comment on above: <150 ng/ml CUTOFF Benzoylecgonine Ql (U) Negative NEGATIVE NG/M L [facility] Comment on above: <150 ng/ml CUTOFF Buprenorphine Ql (U) Negative NEGATIVE NG/ML [facility] Comment on above: <10 ng/ml CUTOFF Cannabinoids Screen Ql (U) Positive Abnormal NEGATIVE NG/ML [facility] Comment on above: <50 ng/ml CUTOFF *Unconfirmed Screening Result* Unconfirmed screening results are to be used only for medical treatment purposes. Interpretation and review of laboratory results Abnormal [facility] Methadone Screen Ql (U) Negative NEGATIVE NG/ ML [facility] Comment on above: <200 ng/ml CUTOFF Methamphetamine (U) [Mass/Vol] Negative NEGATIVE NG/ML [facility] Comment on above: <500 ng/ml CUTOFF Opiates Screen Ql (U) Negative NEGATIVE NG/ML [facility] Comment on above: <100 ng/ml CUTOFF oxyCODONE Ql (U) Negative NEGATIVE NG/ML [facility] Comment on above: <100 ng/ml CUTOFF Phencyclidine Screen method >25 ng/mL Ql (U) Negative NEGATIVE NG/ML [facility] Comment on above: <25 ng/ml CUTOFF Propoxyphene+Norpropoxy phene Screen Ql (U) Negative NEGATIVE NG/ML [facility] Comment on above: <300 ng/ml CUTOFF Tricyclic antidepressants Screen Ql (U) Negative NEGATIVE NG/ML [facility] Comment on above: <300 ng/ml CUTOFF [facility] URINALYSIS, MACROon 12-11-19 22 Bilirubin Ql (U) Negative NEGATIVE [facility] Clarity (U) CLEAR CLEAR [facility] Color (U) YELLOW YELLOW [facility] Glucose Test strip (U) [Mass/Vol] Negative NEGATIVE mg/dl [facility] Hemoglobin Ql (U) Negative NEGATIVE [facility] Ketones (U) [Mass/Vol] TRACE Abnormal NEGATIVE mg/d l [facility] Leukocyte esterase Test strip Ql (U) Negative NEGATIVE [facility] Nitrite Ql (U) Negative NEGATIVE [facility] pH (U) 6.0 [pH] [facility] Protein Ql (U) TRACE Abnormal NEGATIVE mg/dl [facility] Specific gravity (U) [Rel density] >1.030 High [facility] Urobilinogen (U) [Mass/Vol] 1.0 mg/dL [facility] URINE MACROSCOPICon 12-11-19 22 Bilirubin Ql (U) Negative Normal NEGATIVE [facility] Clarity (U) CLEAR Normal CLEAR [facility] Color (U) YELLOW Normal YELLOW [facility] Glucose Ql (U) Negative Normal NEGATIVE [facility] pH (U) 6.0 [pH] Normal 5.0-7.0 [facility] URINE HEMOGLOBIN Negative Normal NEGATIVE [facility] URINE KETONE TRACE Abnormal NEGATIVE [facility] URINE LEUKOTEST Negative Normal NEGATIVE [facility] URINE NITRATES Negative Normal NEGATIVE [facility] URINE SPEC GRAVITY >1.030 High 1.010-1.025 [facility] URINE TOTAL PROTEIN TRACE Abnormal NEGATIVE [facility] Urobilinogen Qn (U) 1.0 {Saud'U}/dL Normal 0.2-1.0 [facility] URINE MICROSCOPICon 12-11-19 22 Bacteria LM.HPF (Urine sed) [#/Area] Negative Normal NEGATIVE [facility] CASTS NONE Normal NONE [facility] CRYSTAL NONE Normal NONE [facility] Epithelial cells LM Ql (Urine sed) NONE Normal [facility] Mucus Ql (Urine sed) 1+ Abnormal NEGATIVE [facility] URINE COMMENT CULTURE CRITERIA NOT MET, NO CULTURE PERFORMED. Normal [facility] URINE RBC'S 1 TO 5 Normal NEGATIVE [facility] URINE WBC'S Negative Normal NEGATIVE [facility] Bacteria LM.HPF (Urine sed) [#/Area] Negative NEGATIVE [facility] Casts LM.LPF (Urine sed) [#/Area] NONE NONE /LPF [facility] Crystals LM Nom (Urine sed) NONE NONE [facility] Epithelial cells LM Ql (Urine sed) NONE /HPF [facility] Mucus Ql (Urine sed) 1+ Abnormal NEGATIVE [facility] RBC LM.HPF (Urine sed) [#/Area] 1 TO 5 NEGATIVE /HPF [facility] Urine sediment comments LM Dillon (Urine sed) CULTURE CRITERIA NOT MET, NO CULTURE PERFORMED. [facility] WBC LM.HPF (Urine sed) [#/Area] Negative NEGATIVE /HPF [facility] XR CHEST AP PORTABLEon 12-10 XR CHEST AP PORTABLE EXAM: XR CHEST AP PORTABLE HISTORY: weakness COMPARISON: None available TECHNIQUE: Single frontal view chest x-ray FINDINGS: No lobar consolidation, large pleural effusions, pneumothorax, or acute bony abnormality. Cardiac size unremarkable. IMPRESSION: No radiographic evidence for acute chest abnormality. Normal [facility] Vital Signs Date Time Vital Sign Value Performing Clinician Facility 05-13-2023 09:09-0400 Body height 165.1 cm PHYSICIAN NO [facility] 05-13-2023 09:09-0400 Body temperature 98.4 [degF] PHYSICIAN NO [facility] 05-13-2023 09:09-0400 Body weight 74.45 kg PHYSICIAN NO [facility] 05-13-2023 09:09-0400 Diastolic blood pressure 94 mm[Hg] PHYSICIAN NO [facility] 05-13-2023 09:09-0400 Heart rate 64 /min PHYSICIAN NO [facility] 05-13-2023 09:09-0400 Respiratory rate 20 /min PHYSICIAN NO [facility] 05-13-2023 09:09-0400 SaO2% (BldA) [Mass fraction] 100 % PHYSICIAN NO [facility] 05-13-2023 09:09-0400 Systolic blood pressure 134 mm[Hg] PHYSICIAN NO [facility] 05-13-2022 15:12-0400 Diastolic blood pressure 76 mm[Hg] Mariela Drake MD Work Phone: [facility] 05-13-2022 15:12-0400 Heart rate 62 /min Mariela Drake MD Work Phone: [facility] 05-13-2022 15:12-0400 Respiratory rate 16 /min Mariela Drake MD Work Phone: [facility] 05-13-2022 15:12-0400 Systolic blood pressure 125 mm[Hg] Mariela Drake MD Work Phone: [facility] 05-13-2022 14:35-0400 Body height 165.1 cm Mariela Drake MD Work Phone: [facility] 05-13-2022 14:34-0400 Body temperature 98.4 [degF] Mariela Drake MD Work Phone: [facility] 05-13-2022 14:34-0400 SaO2% (BldA) [Mass fraction] 100 % Mariela Drake MD Work Phone: [facility] 05-09-2022 12:44-0400 Diastolic blood pressure 70 mm[Hg] William Del Castillo MD Work Phone: [facility] 05-09-2022 12:44-0400 Heart rate 50 /min William Del Castillo MD Work Phone: [facility] 05-09-2022 12:44-0400 SaO2% (BldA) [Mass fraction] 98 % William Del Castillo MD Work Phone: [facility] 05-09-2022 12:44-0400 Systolic blood pressure 124 mm[Hg] William Del Castillo MD Work Phone: [facility] 05-09-2022 11:51-0400 Body height 165.1 cm William Del Castillo MD Work Phone: [facility] 05-09-2022 11:40-0400 Body temperature 98.71 [degF] William Del Castillo MD Work Phone: [facility] 05-09-2022 11:40-0400 Respiratory rate 16 /min William Del Castillo MD Work Phone: [facility] 12-12-2021 23:57-0400 Diastolic blood pressure 67 mm[Hg] Aida Masters MD Work Phone: [facility] 12-12-2021 23:57-0400 Heart rate 74 /min Aida Masters MD Work Phone: [facility] 12-12-2021 23:57-0400 SaO2% (BldA) [Mass fraction] 96 % Aida Masters MD Work Phone: [facility] 12-12-2021 23:57-0400 Systolic blood pressure 109 mm[Hg] Aida Masters MD Work Phone: [facility] 12-12-2021 22:38-0400 Body temperature 98.4 [degF] Aida Masters MD Work Phone: [facility] 12-12-2021 22:38-0400 Respiratory rate 17 /min Aida Masters MD Work Phone: [facility] 12-10-2021 08:12-0400 Diastolic blood pressure 54 mm[Hg] Gorge Cleaning MD Work Phone: [facility] 12-10-2021 08:12-0400 Heart rate 76 /min Gorge Cleaning MD Work Phone: [facility] 12-10-2021 08:12-0400 Respiratory rate 18 /min Gorge Cleaning MD Work Phone: [facility] 12-10-2021 08:12-0400 SaO2% (BldA) [Mass fraction] 97 % Gorge Cleaning MD Work Phone: [facility] 12-10-2021 08:12-0400 Systolic blood pressure 101 mm[Hg] Gorge Cleaning MD Work Phone: [facility] 12-10-2021 05:18-0400 Body temperature 98.49 [degF] Gorge Cleaning MD Work Phone: [facility] Encounters Encounter Date Encounter Type Care Provider Facility Start: 05-13-2023 End: 05-13-2023 Emergency department patient visit PHYSICIAN ABDULAZIZ [facility] Work Phone: Start: 05-13-2022 End: 05-13-2022 [facility] Start: 05-13-2022 End: 05-13-2022 Emergency department patient visit Mariela Drake MD Work Phone: [facility] Start: 05-09-2022 End: 05-09-2022 Emergency department patient visit WILLIAM DEL CASTILLO [facility] Start: 05-09-2022 End: 05-09-2022 Emergency department patient visit William Del Castillo MD Work Phone: [facility] Start: 12-13-2021 End: 12-13-2021 Emergency department patient visit AIDA MASTERS [facility] Start: 12-12-2021 End: 12-13-2021 Emergency department patient visit Aida Masters MD Work Phone: [facility] Start: 12-10-2021 End: 12-10-2021 Emergency department patient visit GORGE CLEANING [facility] Start: 12-10-2021 End: 12-10-2021 Emergency department patient visit Gorge Cleaning MD Work Phone: [facility] Procedures Date Procedure Procedure [...] Detail Author Start: 03-31-2031 Tetanus vaccination TETANUS [facility] Start: 05-22-2022 End: 05-22-2022 Patient encounter procedure 05/22/2022 Office Visit Orthopaedics Luis Miguel MD [address] [place] [address] [place] [address] [facility] Start: 04-03-2022 [facility] Start: 08-08-2013 HIV screening HIV SCREENING DISCUSSION [facility] Start: 2009 Vaccination for human papillomavirus HPV VACCINE ADOL (1 - Male 2-dose series) [facility] Start: 2004 PNEUMOCOCCAL VACCINE SERIES (1 - PCV) PNEUMOCOCCAL VACCINE SERIES (1 - PCV) [facility] Start: 2003 COVID-19 VACCINE (#1) COVID-19 VACCINE (#1) [facility] Start: 1998 COVID-19 VACCINE (#1) COVID-19 VACCINE (#1) [facility] Start: 1998 Hepatitis C antibody, confirmatory test HEPATITIS C VIRUS SCREENING [facility] [facility] Start: 2000 Hepatitis C screening HEPATITIS C VIRUS SCREENING [facility] Patient Education Migraines in adults [facility] Work Phone: Patient referral [facility] Work Phone: Immunizations Immunization Date Immunization Notes Care Provider Fa cili 03-31-2021 tetanus toxoid, redu gil diphtheria toxoid, and acellular pertussis vaccine, adsorbed Gorge Cleaning MD Work Phone: [facility] 05-21-2009 influenza virus vaccine, unspecified formulation Gorge Cleaning MD Work Phone: [facility] Payers Date Payer Category Payer Self-pay 2023 Unknown [id number] 2021 Unknown [employer] [place] [id number] 2021-Present [address] [place] [address] [id number] 2021 Unknown [id number] 1998 Unknown [id number] 1998 Unknown [id number] 1998 Unknown [id number] 1998 Unknown [id number] Unknown [id number] Social History Date Type Detail Facility Start: [facility]31[facility]21 [facility] [employer] [facility] Start: 03-31-2021 Cigarettes smoked current (pack per day) - Reported 0.5 [facility] Start: 03-31-2021 Tobacco use and exposure Smok[facility] Start: 12-10-2021 End: 05-13-2022 Alcohol intake Current drinker of alcohol (finding) [facility] Start: 03-31-2021 History SDOH Alcohol Comment occassional [facility] Start: 2000 Sex Assigned At Not on file [facility] [employer] Start: 11-30-2021 End: 05-13-2022 Exposure to SARS-CoV-2 (event) Not sure [facility] History of tobacco use Cigarette Smoker [facility] [employer] Start: 05-13-2023 Tobacco smoking stat [facility] Smoker (finding) [facility] Start: 2000 Sex Assigned At Male F [facility] Clinical Notes 12-10-2021 to 05-13-2022 Yocasta [...] time. VSS, RR is regular and unlabored. Crockett was steady on crutches. [facility] 05-13-2022 Emergency department Note At bedside to discharge patient. All paperwork gone over. Denies any questions at this time. VSS, RR is regular and unlabored. Crockett was steady on crutches. To ED with report of right foot pain. No improvement since last visit. States aggravated by standing on it at work. One dose of ibuprofen this morning. Reiterated the importance of appropriate use of NSAIDS for pain relief. documented in this encounter [facility] 05-13-2022 Hospital Discharg e instructions Mariela Drake MD - 05/13/2022 3:01 PM EDT Follow up with orthopedic surgery. Return to ED if we can further assist you. documented in this encounter [facility] 05-13-2022 Emergency department Note To ED with report of right foot pain. No improvement since last visit. States aggravated by standing on it at work. One dose of ibuprofen this morning. Reiterated the importance of appropriate use of NSAIDS for pain relief. [facility] 05-09-2022 Emergency department Note Bedside to apply RUDI wrap and air cast. Tolerated well. Voices an understanding of wearing.Work note and discharge papers provided. Denies concerns/questions. Ambulates out of ED with slight limp, respirs even and unlabored. [facility] 05-09-2022 Emergency department Note Bedside [...] Use Authorization (EUA) for the qualitative detection xjGZMQ-FlM-3 nucleic acid. CBC, EDIF, PLATELET Result Value [...] YELLOW YELLOW APPEARANCE, URINE CLEAR CLEAR Specific [place], Urine >1.030 (H) 1.010 - 1.025 PH [...] ankle and foot. documented in this encounter [facility] 05-09-2022 Physician Emergency department Note Images from the original note were not included. Emergency Department Report [facility]IC[facility] Service Date:.05/09/22 PCP: No primary [...] Use Authorization (EUA) for the qualitative detection daVYED-MkV-2 nucleic acid. CBC, EDIF, PLATELET Result Value [...] YELLOW YELLOW APPEARANCE, URINE CLEAR CLEAR Specific [place], Urine >1.030 (H) 1.010 - 1.025 PH [...] orthopedics as an outpatient work excuse provided. [facility] Number of Diagnoses or Management [...] . William Del Castillo MD 05/09/22 1316 [facility] 05-09-2022 Emergency department Note Ice applied to right ankle and foot. [facility] 12-12-2021 Emergency department Note Rudi wrap applied to R wrist. Discharge instructions reviewed and given to pt. Denies questions. Pt a&o, respirations even and unlabored. Exits Ed w/ steady gait. [facility] 12-12-2021 Emergency department Note Rudi wrap applied to R wrist. Discharge instructions reviewed and given to pt. Denies questions. Pt a&o, respirations even and unlabored. Exits Ed w/ steady gait. Ice Bag applied X-ray at bedside Emergency Department Report [facility] Service Date:.12/12/21 PCP: No primary [...] Use Authorization (EUA) for the qualitative detection raTJDC-RcS-2 nucleic acid. CBC, EDIF, PLATELET Result Value [...] YELLOW YELLOW APPEARANCE, URINE CLEAR CLEAR Specific [place], Urine >1.030 (H) 1.010 - 1.025 PH [...] MD 12/12/21 2346 documented in this encounter [facility] 12-12-2021 Hospital Discharg e instructions [...] be sent through Care Everywhere.RICE: General Info (Moroccan)Hand Sprain (Moroccan)Wrist Sprain (Moroccan)documented in this encounter [facility] 12-12-2021 Emergency department Note Ice Bag applied [facility] 12-12-2021 Emergency department Note X-ray at bedside [facility] 12-12-2021 Physician Emergency department Note Emergency Department Report [facility] Service Date:.12/12/21 PCP: No primary [...] Use Authorization (EUA) for the qualitative detection sbOCRK-IyU-9 nucleic acid. CBC, EDIF, PLATELET Result Value [...] YELLOW YELLOW APPEARANCE, URINE CLEAR CLEAR Specific [place], Urine >1.030 (H) 1.010 - 1.025 PH [...] . . Aida Masters MD 12/12/21 2346 [employer] [facility] Work Phone: 12-10-2021 Emergency department Note [...] complete dictation. Fabrice Dougherty DO 12/10/21 0807 [facility] [facility] Work Phone: 12-10-2021 Emergency department Note 0805 [...] or dietary supplements. documented in this encounter [facility] 12-10-2021 Emergency department Note Pt reports nausea still present. Dr. Cleaning aware. [facility] 12-10-2021 Hospital Discharg e instructions [...] attachments cannot be sent through Care Everywhere.Gastroenteritis (Moroccan)documented in this encounter [facility] 12-10-2021 Emergency department Note Pt aware of UA order and states unable to urinate at this time. [facility] 12-10-[address] Cleaning at bedside. [facility] 12-10-2021 Emergency department Note Patient denies changes to medications, diet, or dietary supplements. [facility] Evaluation note Diagnosis Gastroenteritis- Primary Other and unspecified noninfectious gastroenteritis and colitis [facility] Diagnosis Sprain of right wrist, initial encounter- Primary Sprain of right hand, initial encounter [facility] Diagnosis Sprain of right foot, initial encounter- Primary Sprain of right ankle, unspecified ligament, initial encounter [facility] Diagnosis Injury of right foot, subsequent encounter- Primary [facility] noteNo [facility] Work Phone: Hospital Discharge instructions* Attachments The following attachments cannot be sent through Care Everywhere. * Ankle Sprain (Moroccan) * RICE: General Info (Moroccan) [facility] (n[facility]ative)* Consultation (Routine) - New Request Specialty Diagnoses / Procedures Referred By Contac t Referred To Contact Family Medicine Diagnoses Gastroenteritis Gorge Cleaning MD [address] [place] [address] Referral ID Status Reason Start Date Expiration Date V isits Requested Visits Authorized [id number] New Request 12/10/2021 01/04/2023 1 1 [facility] for referral (narrative)* Consultation (Urgent) - New Request Specialty Diagnoses / Procedures Referred By Contac t Referred To Contact Orthopaedic Surgery Diagnoses Sprain of right ankle, unspecified ligament, initial encounter Sprain of right foot, initial encounter William Del Castillo MD [address] [place] [address] Luis Miguel MD [address] [place] [address] [place] [address] Referral ID Status Reason Start Date Expiration Date V isits Requested Visits Authorized [id number] New Request 05/09/2022 06/03/2023 1 1 [facility] for referral (narrative)* Consultation (Routine) - New Request Specialty Diagnoses / Procedures Referred By Contac t Referred To Contact Orthopaedic Surgery Diagnoses Injury of right foot, subsequent encounter Mariela Drake MD [address] [place] [address] Referral ID Status Reason Start Date Expiration Date V isits Requested Visits Authorized [id number] New Request 05/13/2022 06/07/2023 1 1 T [facility] Summary Purpose Family History No [...] DATE CREATED AUTHOR AUTHOR'S AQUILINO ATION 07/15/2023 [facility] Care Teams (unrecognized sec tion [...] BE BASED ON THE PRIMARY CLINICAL RECORDS. [employer] [facility]. provides no warranty or guarantee of the accuracy or completeness of information in this document.
[2023-08-28 11:26] VITALS: BP 135/90; PULSE 101; RESP 18; TEMP 36.8; O2SAT 98; BMI 29.1
--- NOTE | 2023-08-28 12:01 | ECG_ITS ---
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
--- NOTE | 2023-08-28 12:01 | XR_ITS ---
The [address] [address] Patient Name: KALA WATTERS MRN: [id number] date: 2000 Sex: M Assigned Patient Location: ER Current Patient Location: ER Accession/Order Number: [id number] Exam Date: 08/28/2023 12:08 Report Date: 08/28/2023 12:17 At the request of: ARACELY DEAN Procedure: XR chest 1V EXAM: XR chest 1V at 1204 hours HISTORY: CP COMPARISON: 7 0 13 TECHNIQUE: AP upright portable chest x-ray FINDINGS: The heart is not enlarged and the vasculature is not distended. No acute infiltrate, effusion or pneumothorax is identified. The osseous structures are grossly intact. XR/XR chest 1V IMPRESSION: No acute infiltrate or evidence of cardiac decompensation. The overall appearance of the chest is essentially unchanged. Electronically authenticated by: EMILEE NEWBY Date: 08/28/2023 12:17
--- NOTE | 2023-08-28 12:02 | ED.ANXIETY1 ---
HPI - Anxiety General Chief Complaint: Anxiety Stated Complaint: UPPER EXTREMITY PAIN/NAUSEA Time Seen by Provider: 08/28/23 11:24 Source: patient and family Mode of arrival: walk-in Limitations: no limitations History of Present Illness HPI narrative: 23-year-old male presents for numerous complaints. He states that he went for a walk today to clear his head into St. and he got a bit short of breath and his chest was hurting. He was recently diagnosed with a scapular fracture. He's also been feeling anxious and almost passed out and has been breathing heavily and his body's been tingling. He was on Keppra for seizures but stopped that medication a few days ago. His stomach has also been hurting for a few months. Related Data Home Medications Medication Instructions Recorded Confirmed levetiracetam 500 mg tablet 500 mg PO Q12H 08/23/23 08/23/23 meclizine 25 mg tablet 25 mg PO PRN dizziness 08/23/23 Allergies Allergy/AdvReac Type Severity Reaction Status Date / Time No Known Drug Allergies Allergy Verified 08/23/23 02:39 Review of Systems ROS Narrative A ten point review of systems is negative except as noted above. PFSH PFSH Social History Smoking status: Current every day smoker Exam Narrative Exam Narrative: Nurses note and vital signs reviewed and patient is not hypoxic. General: The patient appears anxious and in no apparent respiratory distress. Skin: Warm, dry, no pallor noted. There is no rash noted. Head: Normocephalic, atraumatic Eye: Normal conjunctiva, no drainage, EOMI. PERRL Ears, Nose, Mouth, and Throat: oral mucosa is moist. Nares patent. Cardiovascular: Regular Rate and Rhythm Respiratory: Patient is in no distress, no accessory muscle use, lungs are clear to auscultation, no wheezing, rales or rhonchi Back: non-tender GI: soft and nondistended Musculoskeletal: The patient has no evidence of calf tenderness, no pitting edema, symmetrical pulses noted bilaterally Neurological: A&O, normal speech Psychiatric: Cooperative, anxious in appearance Constitutional Vital Signs, click to edit/add: Last Vital Signs Temp 98.2 F 08/28/23 11:26 Pulse 68 08/28/23 12:50 Resp 17 08/28/23 12:50 BP 135/90 01/26/24 11:26 Pulse Ox 98 08/28/23 11:26 O2 Del Method Room Air 08/28/23 11:26 Course Vital Signs Vital signs: Vital Signs Temperature 98.2 F 08/28/23 11:26 Pulse Rate 101 H 08/28/23 11:26 Respiratory Rate 18 08/28/23 11:26 Blood Pressure 135/90 08/28/23 11:26 Pulse Oximetry 98 08/28/23 11:26 Oxygen Delivery Method Room Air 08/28/23 11:26 Temperature 98.2 F 08/28/23 11:26 Pulse Rate 68 08/28/23 12:50 Respiratory Rate 17 08/28/23 12:50 Blood Pressure 135/90 08/28/23 11:26 Pulse Oximetry 98 08/28/23 11:26 Oxygen Delivery Method Room Air 08/28/23 11:26 MDM - Anxiety MDM Narrative Medical decision making narrative: chest x-ray and EKG are both normal. He is feeling better now and is able to be discharged home. I've no clinical suspicion of acute intracranial pathology. Treatment diagnosis and follow-up were discussed with the patient. Differential Diagnosis Differential diagnosis: Likely panic disorder and acute anxiety Imaging Data Chest x-ray: Radiologist's impression: ITS Impressions Chest X-Ray 08/28/23 12:01 IMPRESSION: No acute infiltrate or evidence of cardiac decompensation. The overall appearance of the chest is essentially unchanged. Electronically authenticated by: EMILEE NEWBY Date: 08/28/2023 12:17 ECG Data Attestation: I personally reviewed and interpreted this ECG as follows: (EKG on my interpretation shows normal sinus rhythm without acute change in a rate of 72.) Discharge Plan Discharge Chief Complaint: Anxiety Clinical Impression: Acute anxiety, Chest pain Patient Disposition: Home, Self-Care Time of Disposition Decision: 12:58 Condition: Good Mode of Transportation: Private Vehicle Prescriptions / Home Meds: No Action levetiracetam 500 mg tablet 500 mg PO Q12H meclizine 25 mg tablet 25 mg PO PRN (Reason: dizziness) Instructions: Chest Pain (ED) Stand Alone Forms: Portal Instructions Referrals: MAXIMO DIAZ [Primary Care Provider] - 1 week
[2023-08-28 12:36] VITALS: PULSE 70; RESP 18
[2023-08-28 12:37] VITALS: PULSE 75
[2023-08-28 12:40] VITALS: PULSE 75; RESP 18
[2023-08-28 12:50] VITALS: PULSE 68; RESP 17
== END 2023-08-28 13:19 | disposition home or self-care (01) ==
PROVIDERS: Emergency Provider Emergency Medicine; PCP Nurse Practitioner Family
DX: R07.9 Chest pain, unspecified (principal); F41.9 Anxiety disorder, unspecified; Z79.899 Other long term (current) drug therapy; F17.210 Nicotine dependence, cigarettes, uncomplicated; Z87.81 Personal history of (healed) traumatic fracture
CPT/HCPCS: 71045; 93005; 99284

== ENCOUNTER 2023-09-03 13:25 | Day surgery (SDC) | payer OTHER, SELFPAY ==
--- NOTE | 2023-09-03 13:29 | US_ITS ---
[address] [address] Patient Name: KALA WATTERS MRN: [id number] date: 2000 Sex: M Assigned Patient Location: US Current Patient Location: US Accession/Order Number: [id number] Exam Date: 09/03/2023 13:48 Report Date: 09/03/2023 15:03 At the request of: MAXIMO DIAZ Procedure: US biopsy thyroid EXAMINATION: US biopsy thyroid HISTORY: Thyroid Nodule COMPARISON: Ultrasound thyroid 08/27/2023 TECHNIQUE: After obtaining informed consent, ultrasound-guided fine needle aspiration was performed in the usual sterile manner. FINDINGS: IMAGING: Ultrasound. BIOPSY NEEDLE: 25-gauge; 3 separate passes LOCATION: Right lobe hypoechoic heterogeneous 2.2 x 1.9 x 1.3 cm nodule. SPECIMEN TYPE: Cellular tissue. LOCAL ANESTHETIC: Buffered Xylocaine. COMPLICATIONS: None. LABORATORY: Prepared slide smears and washings for cell block evaluation. OTHER: Negative. PATHOLOGY: Pending. An addendum will be added when results are available. US/US biopsy thyroid IMPRESSION: 1. Uneventful ultrasound guided fine needle aspiration (FNA). 2. Pathology results are pending. Electronically authenticated by: SOFÍA MOSELEY Date: 09/03/2023 15:03
[2023-09-03 13:35] VITALS: BP 118/83; PULSE 75; O2SAT 98
--- OUTSIDE RECORDS SUMMARY | 2023-09-03 13:35 | XMS_ITS | CCD ---
Author Name Unknown Address [address] [place] [address] Organization [facility] Care Team Providers Care Ladler Name Role Phone Unavailable Primary Care Provider UnavailGORGE Musa Attending Unavailable MARIELA DRAKE Attending Unavailable WILLIAM DEL CASTILLO Attending Unavailable AIDA MASTERS Attending Unavailable NO FAMILY, PHYSICIAN Primary Care Provider Unava MD Aida Sousa Emergency Provider [phone] Aida William Attending Unavailable Aida William Admitting [...] unremarkable. IMPRESSION: No acute osseous abnormality. Normal [facility] CT Ankle - right WO contrast [...] unremarkable. IMPRESSION IMPRESSION: No acute osseous abnormality. [facility] Radiology Study observation (narrative) [facility] CT Ankle - right WO contrast Ordered By: Orlando Ceja on 05-09-2022 [facility] Work Phone: No Panel Informationon [...] ankle. Soft tissue swelling about the midfoot. [facility] No Panel InformationOrdered By: Ghulam Aguilar on 05-09-2022 [facility] Work Phone: XR ANKLE RIGHT [...] Soft tissue swelling about the midfoot. Normal [facility] XR Ankle - right 3 View[facility] 1 [facility]narrative[facility] 3 VIEWSon 10- [...] Soft tissue swelling about the midfoot. Normal [facility] XR Foot - right 3 [facility] Radiology Study [facility]narrative) [facility] HAND RIGHT 3+ VIEWSon XR HAND RIGHT 3+ VIEWS EXAM: XR HAND RIG HT 3+ VIEWS HISTORY: hand pain COMPARISON: None. TECHNIQUE: X-ray FINDINGS: There is no fracture, dislocation, or other osseous abnormality. Joint spaces are preserved. No soft tissue calcifications. IMPRESSION: 1. Normal exam. Normal [facility] XR WRIST RIGHT 3 VIEWSon XR WRIST RIGHT 3 VIEWS EXAM: XR WRIST RIGHT 3 VIEWS HISTORY: right wrist pain COMPARISON: None. TECHNIQUE: X-ray FINDINGS: There is no fracture, dislocation, or other osseous abnormality. Joint spaces are preserved. No soft tissue calcifications. IMPRESSION: 1. Normal exam. Normal [facility] XR Hand - right 3 Viewson [...] tissue calcifications. IMPRESSION IMPRESSION: 1. Normal exam. [facility] Radiology Study observation (narrative) [facility] XR Wrist - right 3 Viewson 0 [...] tissue calcifications. IMPRESSION IMPRESSION: 1. Normal exam. [facility] Radiology Study observation (narrative) [facility] XR Wrist - right 3 ViewsOrde red By: Vinicius Sheffield on 12-12-2021 [facility] Work Phone: ALCOHOLon 12-10-2021 Ethanol [Mass/Vol] mg/dL Normal 0-10 [facility] Comment on above: Result Comment: INTOXICATION >80 MG/DL FATAL >400 MG/DL ALCOHOL (ETHANOL),BLOODon Ethanol [Mass/Vol] mg/dL [facility] Comment on above: INTOXICATION >80 MG/DL FATAL >400 MG/DL CBCon 12-10-2021 ABSOLUTE BAS 0.0 10*3/uL Normal 0.0-0.2 [facility] ABSOLUTE EOS 0.20 10*3/uL Normal 0.0-0.7 [facility] ABSOLUTE NEUTROPHIL COUNT 3.7 10*3/uL Normal 1.4-6.5 [facility] Basophils/100 WBC (Bld) 0.4 % Normal 0.0-2.0 [facility] DTYPE AUTO DIFF Normal [facility] Eosinophils/100 WBC (Bld) 2.9 % Normal 0.0-11.0 [facility] Lymphocytes (Bld) [#/Vol] 0.80 10*3/uL Low 1.2-3.4 [facility] Lymphocytes/100 WBC (Bld) 16.4 % Low 20.0-55.0 [facility] Monocytes (Bld) [#/Vol] 0.5 10*3/uL Normal 0.0-0.7 [facility] Monocytes/100 WBC (Bld) 9.9 % Normal 0.0-10.0 [facility] Neutrophils/100 WBC (Bld) 70.4 % Normal 37.0-75.0 [facility] Erythrocyte distribution width (RBC) [Ratio] 12.9 % Normal 11.5-14.5 [facility] Hematocrit (Bld) [Volume fraction] 43.0 % Normal 42.0-52.0 [facility] Hemoglobin (Bld) [Mass/Vol] 15.0 g/dL Normal 14.0-18.0 [facility] MCH (RBC) [Entitic mass] 29.5 pg Normal 26.0-35.0 [facility] MCHC (RBC) [Mass/Vol] 34.9 g/dL Normal 27.0-37.0 [facility] MCV (RBC) [Entitic vol] 84.5 fL Normal 80.0-100.0 [facility] Platelet mean volume (Bld) [Entitic vol] 7.3 fL Low 7.4-11.0 [facility] Platelets (Bld) [#/Vol] 147 10*3/uL Normal 130.0-400.0 [facility] RBC (Bld) [#/Vol] 5.10 10*6/uL Normal 4.0-6.1 [facility] WBC (Bld) [#/Vol] 5.2 10*3/uL Normal 3.6-11.0 [facility] CBC, EDIF, PLATELETon 2021 ABSOLUTE BASOPHIL COUNT 0.0 10*3/uL 0.0 - 0.2 10*3/uL [facility] Basophils/100 WBC (Bld) 0.4 % 0.0 - 2.0 % [facility] Differential cell count method Nom (Bld) AUTO DIFF % [facility] Eosinophils (Bld) [#/Vol] 0.20 10*3/uL 0.0 - 0.7 10*3/uL [facility] Eosinophils/100 WBC (Bld) 2.9 % 0.0 - 11.0 % [facility] Erythrocyte distribution width (RBC) [Ratio] 12.9 % 11.5 - 14.5 % [facility] Hematocrit (Bld) [Volume fraction] 43.0 % 42.0 - 52.0 % [facility] Hemoglobin (Bld) [Mass/Vol] 15.0 g/dL [facility] Interpretation and review of laboratory results Abnormal [facility] Lymphocytes (Bld) [#/Vol] 0.80 10*3/uL Low 1.2 - 3.4 10*3/uL [facility] Lymphocytes/100 WBC (Bld) 16.4 % Low 20.0 - 55.0 % [facility] MCH (RBC) [Entitic mass] 29.5 pg 26.0 - 35.0 PG [facility] MCHC (RBC) [Mass/Vol] 34.9 g/dL [facility] MCV (RBC) [Entitic vol] 84.5 fL A [facility] Monocytes (Bld) [#/Vol] 0.5 10*3/uL 0.0 - 0.7 10*3/uL [facility] Monocytes/100 WBC (Bld) 9.9 % 0.0 - 10.0 % [facility] Neutrophils (Bld) [#/Vol] 3.7 10*3/uL 1.4 - 6.5 10*3/uL [facility] Neutrophils/100 WBC (Bld) 70.4 % 37.0 - 75.0 % [facility] Platelet mean volume (Bld) [Entitic vol] 7.3 fL Low [facility] Platelets (Bld) [#/Vol] 147 10*3/uL 130. 0 - 400.0 10*3/uL [facility] RBC (Bld) [#/Vol] 5.10 10*6/uL 4.0 - 6.1 10*6/uL [facility] WBC (Bld) [#/Vol] 5.2 10*3/uL 3.6 - 11.0 10*3/uL [facility] CHEM 7 FASTINGon 12-10-2021 Chloride [Moles/Vol] 106 mmol/L Normal 98-107 [facility] Comment on above: Result Comment: Plea se note: Triglyceride levels of 600mg/dL or higher may positively bias chloride results by approximately 2.1 mmol CO2 [Moles/Vol] 25 mmol/L Normal 22-30 [facility] Creatinine [Mass/Vol] 0.77 mg/dL Normal 0.7-1.2 [facility] EST. GFR, 161 ml/min/1.73sq.m Normal [facility] EST. GFR,Non 133 ml/min/1.73sq.m [facility] GFR Information Average GFR for 20-29 years old = 116. Normal [facility] Comment on above: Result Comment: Industrial Hygiene Engineer javon Kidney disease, GFR = <60. Kidney failure, GFR = <15. The GFR estimate is not adjusted for extreme body surface area or acute process, nor has it been validated for women or ethnic groups other than and . Glucose [Mass/Vol] 109 mg/dL High 70-100 [facility] Comment on above: Result Comment: NORMAL <100 mg/dL PREDIABETES 101-126 mg/dL DIABETES 126 mg/dL or higher Potassium [Moles/Vol] 3.6 mmol/L Normal 3.5-5.1 [facility] Sodium [Moles/Vol] 137 mmol/L Normal 137-145 [facility] Urea nitrogen [Mass/Vol] 11 mg/dL Normal 7-20 [facility] CHEM 7 (LYTES,BUN,CREA,GLUC) on 12-10-2021 Chloride [Moles/Vol] 106 mmol/L [facility] Comment on above: Please note: Triglyc eride levels of 600mg/dL or higher may positively bias chloride results by approximately 2.1 mmol CO2 [Moles/Vol] 25 mmol/L [facility] Creatinine [Mass/Vol] 0.77 mg/dL [facility] GFR COMMENT Average GFR for 20-29 years old = 116. [facility] Comment on above: Chronic Kidney disea se, GFR = <60. Kidney failure, GFR = <15. The GFR estimate is not adjusted for extreme body surface area or acute process, nor has it been validated for women or ethnic groups other than and . GFR/1.73 sq M.predicted among blacks MDRD (S/P/Bld) [Vol rate/Area] 161 mL/min/{1.73_m2} ml/min/1.73sq. m [facility] GFR/1.73 sq M.predicted among non-blacks MDRD (S/P/Bld) [Vol rate/Area] 133 mL/min/{1.73_m2} ml/min/1.73sq. m [facility] Glucose post fast [Mass/Vol] 109 mg/dL High [facility] Comment on above: NORMAL <100 mg/dL PREDIABETES 101-126 mg/dL DIABETES 126 mg/dL or higher Interpretation and review of laboratory results Abnormal [facility] Potassium [Moles/Vol] 3.6 mmol/L [facility] Sodium [Moles/Vol] 137 mmol/L [facility] Urea nitrogen [Mass/Vol] 11 mg/dL [facility] CT ABDOMEN/PELVIS WITHOUT CO NTRASTon [...] OTHER: Negative. IMPRESSION: No acute abnormality Normal [facility] CT Abdomen and Pelvis WO con [...] OTHER: Negative. IMPRESSION IMPRESSION: No acute abnormality [facility] Radiology Study observation (narrative) [facility] CT Abdomen and Pelvis WO con trastOrdered By: David Murphy on 12-10-2021 [facility] Work Phone: HEPATIC FUNCTION PANELon Albumin [Mass/Vol] 4.0 g/dL [facility] ALP [Catalytic activity/Vol] 48 U/L [facility] ALT [Catalytic activity/Vol] 16 U/L <50 IU/L [facility] AST [Catalytic activity/Vol] 24 U/L [facility] Bilirubin [Mass/Vol] 1.2 mg/dL [facility] Bilirubin.direct [Mass/Vol] 0.1 mg/dL [facility] Protein [Mass/Vol] 7.1 g/dL [facility] INFLUENZA A AND B, PCRon FLUAV and FLUBV Ag IF Nom (Unsp spec) Negative NEGATIVE [facility] FLUBV Ag IA Ql (Unsp spec) Negative NEGATIVE [facility] Comment on above: TESTING PERFORMED BY [facility] LACTATE, BLOODon 12-10-2021 Lactate [Moles/Vol] 0.8 mmol/L 0.7 - 2. 0 mmol/L [facility] LACTATE,BLOODon 12-10-2021 Lactate [Moles/Vol] 0.8 mmol/L Normal 0.7-2.0 [facility] LIPASEon 12-10-2021 Lipase [Catalytic activity/Vol] 36 U/L 23 - 300 U/L [facility] LIPASE,SERUMon 12-10-2021 LIPASE,SERUM 36 U/L Normal 23-300 [facility] LIVER PANELon 12-10-2021 Albumin [Mass/Vol] 4.0 g/dL Normal 2.9-5.3 [facility] ALP [Catalytic activity/Vol] 48 U/L Normal 38-126 [facility] ALT [Catalytic activity/Vol] 16 U/L Normal <50 [facility] AST [Catalytic activity/Vol] 24 U/L Normal 17-59 [facility] Bilirubin [Mass/Vol] 1.2 mg/dL Normal 0.2-1.3 [facility] Bilirubin.indirect [Mass/Vol] 0.1 mg/dL Normal 0-0.4 [facility] Protein [Mass/Vol] 7.1 g/dL Normal 6.3-8.2 [facility] NOVEL CORONAVIRUSon 12-11-19 22 NARRATIVE This test was performed using isothermal PHONG and has been approved as Emergency Use Authorization (EUA) for the qualitative detection [id number] nucleic acid. Normal [facility] SARS-CoV-2 (COVID-19) RNA PHONG+probe Ql (Unsp spec) Not detected Normal NOT DETECTED [facility] Comment on above: Result Comment: Nega [...] Use Authorization (EUA) for the qualitative detection [id number] nucleic acid. [facility] SARS-CoV-2 (COVID-19) RNA PHONG+probe Ql (Unsp spec) Not detected NOT DETECTED [facility] Comment on above: Negative results [...] patient is critically ill or clinically deteriorating. [facility] No Panel Informationon 12-10 Interpretation and review of laboratory results Abnormal [facility] Portable XR Chest Views APon [...] No radiographic evidence for acute chest abnormality. [facility] Radiology Study observation (narrative) [facility] Portable XR Chest Views APOr dered By: Luis Stevenson on 12-10-2021 [facility] Work Phone: RAPID FLU Aon 12-10-2021 INFLUENZA A Negative Normal NEGATIVE [facility] INFLUENZA B Negative Normal NEGATIVE [facility] Comment on above: Result Comment: TEST ING PERFORMED BY PHONG RAPID TOX SCREEN,URINEon AMPHETAMINE Negative Normal NEGATIVE [facility] Comment on above: Result Comment: <500 ng/ml CUTOFF BARBITURATES Negative Normal NEGATIVE [facility] Comment on above: Result Comment: <200 ng/ml CUTOFF BENZODIAZEPINES Negative Normal NEGATIVE [facility] Comment on above: Result Comment: <150 ng/ml CUTOFF BUPRENORPHINE Negative Normal NEGATIVE [facility] Comment on above: Result Comment: <10 ng/ml CUTOFF CANNABINOIDS Positive Abnormal NEGATIVE [facility] Comment on above: Result Comment: <50 ng/ml CUTOFF *Unconfirmed Screening Result* Unconfirmed screening results are to be used only for medical treatment purposes. COCAINE Negative Normal NEGATIVE [facility] Comment on above: Result Comment: <150 ng/ml CUTOFF METHADONE Negative Normal NEGATIVE [facility] Comment on above: Result Comment: <200 ng/ml CUTOFF METHAMPHETAMINE Negative Normal NEGATIVE [facility] Comment on above: Result Comment: <500 ng/ml CUTOFF OPIATES Negative Normal NEGATIVE [facility] Comment on above: Result Comment: <100 ng/ml CUTOFF OXYCODONE Negative Normal NEGATIVE [facility] Comment on above: Result Comment: <100 ng/ml CUTOFF PHENCYCLIDINE Negative Normal NEGATIVE [facility] Comment on above: Result Comment: <25 ng/ml CUTOFF PROPOXYPHENE Negative Normal NEGATIVE [facility] Comment on above: Result Comment: <300 ng/ml CUTOFF TRICYCLIC ANTIDEPRESSANTS Negative Normal NEGATIVE [facility] Comment on above: Result Comment: <300 ng/ml CUTOFF TOXICOLOGY DRUG SCREEN, URIN Marcelino 12-10-2021 Amphetamine (U) [Mass/Vol] Negative NEGATIVE NG/ML [facility] Comment on above: <500 ng/ml CUTOFF Barbiturates Screen Ql (U) Negative NEGATIVE NG/ML [facility] Comment on above: <200 ng/ml CUTOFF Benzodiazepines Ql (U) Negative NEGATIVE NG/M L [facility] Comment on above: <150 ng/ml CUTOFF Benzoylecgonine Ql (U) Negative NEGATIVE NG/M L [facility] Comment on above: <150 ng/ml CUTOFF Buprenorphine Ql (U) Negative NEGATIVE NG/ML [facility] Comment on above: <10 ng/ml CUTOFF Cannabinoids Screen Ql (U) Positive Abnormal NEGATIVE NG/ML [facility] Comment on above: <50 ng/ml CUTOFF *Unconfirmed Screening Result* Unconfirmed screening results are to be used only for medical treatment purposes. Interpretation and review of laboratory results Abnormal [facility] Methadone Screen Ql (U) Negative NEGATIVE NG/ ML [facility] Comment on above: <200 ng/ml CUTOFF Methamphetamine (U) [Mass/Vol] Negative NEGATIVE NG/ML [facility] Comment on above: <500 ng/ml CUTOFF Opiates Screen Ql (U) Negative NEGATIVE NG/ML [facility] Comment on above: <100 ng/ml CUTOFF oxyCODONE Ql (U) Negative NEGATIVE NG/ML [facility] Comment on above: <100 ng/ml CUTOFF Phencyclidine Screen method >25 ng/mL Ql (U) Negative NEGATIVE NG/ML [facility] Comment on above: <25 ng/ml CUTOFF Propoxyphene+Norpropoxy phene Screen Ql (U) Negative NEGATIVE NG/ML [facility] Comment on above: <300 ng/ml CUTOFF Tricyclic antidepressants Screen Ql (U) Negative NEGATIVE NG/ML [facility] Comment on above: <300 ng/ml CUTOFF [facility] URINALYSIS, MACROon 12-11-19 22 Bilirubin Ql (U) Negative NEGATIVE [facility] Clarity (U) CLEAR CLEAR [facility] Color (U) YELLOW YELLOW [facility] Glucose Test strip (U) [Mass/Vol] Negative NEGATIVE mg/dl [facility] Hemoglobin Ql (U) Negative NEGATIVE [facility] Ketones (U) [Mass/Vol] TRACE Abnormal NEGATIVE mg/d l [facility] Leukocyte esterase Test strip Ql (U) Negative NEGATIVE [facility] Nitrite Ql (U) Negative NEGATIVE [facility] pH (U) 6.0 [pH] [facility] Protein Ql (U) TRACE Abnormal NEGATIVE mg/dl [facility] Specific gravity (U) [Rel density] >1.030 High [facility] Urobilinogen (U) [Mass/Vol] 1.0 mg/dL [facility] URINE MACROSCOPICon 12-11-19 22 Bilirubin Ql (U) Negative Normal NEGATIVE [facility] Clarity (U) CLEAR Normal CLEAR [facility] Color (U) YELLOW Normal YELLOW [facility] Glucose Ql (U) Negative Normal NEGATIVE [facility] pH (U) 6.0 [pH] Normal 5.0-7.0 [facility] URINE HEMOGLOBIN Negative Normal NEGATIVE [facility] URINE KETONE TRACE Abnormal NEGATIVE [facility] URINE LEUKOTEST Negative Normal NEGATIVE [facility] URINE NITRATES Negative Normal NEGATIVE [facility] URINE SPEC GRAVITY >1.030 High 1.010-1.025 [facility] URINE TOTAL PROTEIN TRACE Abnormal NEGATIVE [facility] Urobilinogen Qn (U) 1.0 {Saud'U}/dL Normal 0.2-1.0 [facility] URINE MICROSCOPICon 12-11-19 22 Bacteria LM.HPF (Urine sed) [#/Area] Negative Normal NEGATIVE [facility] CASTS NONE Normal NONE [facility] CRYSTAL NONE Normal NONE [facility] Epithelial cells LM Ql (Urine sed) NONE Normal [facility] Mucus Ql (Urine sed) 1+ Abnormal NEGATIVE [facility] URINE COMMENT CULTURE CRITERIA NOT MET, NO CULTURE PERFORMED. Normal [facility] URINE RBC'S 1 TO 5 Normal NEGATIVE [facility] URINE WBC'S Negative Normal NEGATIVE [facility] Bacteria LM.HPF (Urine sed) [#/Area] Negative NEGATIVE [facility] Casts LM.LPF (Urine sed) [#/Area] NONE NONE /LPF [facility] Crystals LM Nom (Urine sed) NONE NONE [facility] Epithelial cells LM Ql (Urine sed) NONE /HPF [facility] Mucus Ql (Urine sed) 1+ Abnormal NEGATIVE [facility] RBC LM.HPF (Urine sed) [#/Area] 1 TO 5 NEGATIVE /HPF [facility] Urine sediment comments LM Dillon (Urine sed) CULTURE CRITERIA NOT MET, NO CULTURE PERFORMED. [facility] WBC LM.HPF (Urine sed) [#/Area] Negative NEGATIVE /HPF [facility] XR CHEST AP PORTABLEon 12-10 XR CHEST AP PORTABLE EXAM: XR CHEST AP PORTABLE HISTORY: weakness COMPARISON: None available TECHNIQUE: Single frontal view chest x-ray FINDINGS: No lobar consolidation, large pleural effusions, pneumothorax, or acute bony abnormality. Cardiac size unremarkable. IMPRESSION: No radiographic evidence for acute chest abnormality. Normal [facility] Vital Signs Date Time Vital Sign Value Performing Clinician Facility 05-13-2023 09:09-0400 Body height 165.1 cm PHYSICIAN NO [facility] 05-13-2023 09:09-0400 Body temperature 98.4 [degF] PHYSICIAN NO [facility] 05-13-2023 09:09-0400 Body weight 74.45 kg PHYSICIAN NO [facility] 05-13-2023 09:09-0400 Diastolic blood pressure 94 mm[Hg] PHYSICIAN NO [facility] 05-13-2023 09:09-0400 Heart rate 64 /min PHYSICIAN NO [facility] 05-13-2023 09:09-0400 Respiratory rate 20 /min PHYSICIAN NO [facility] 05-13-2023 09:09-0400 SaO2% (BldA) [Mass fraction] 100 % PHYSICIAN NO [facility] 05-13-2023 09:09-0400 Systolic blood pressure 134 mm[Hg] PHYSICIAN NO [facility] 05-13-2022 15:12-0400 Diastolic blood pressure 76 mm[Hg] Mariela Drake MD Work Phone: [facility] 05-13-2022 15:12-0400 Heart rate 62 /min Mariela Drake MD Work Phone: [facility] 05-13-2022 15:12-0400 Respiratory rate 16 /min Mariela Drake MD Work Phone: [facility] 05-13-2022 15:12-0400 Systolic blood pressure 125 mm[Hg] Mariela Drake MD Work Phone: [facility] 05-13-2022 14:35-0400 Body height 165.1 cm Mariela Drake MD Work Phone: [facility] 05-13-2022 14:34-0400 Body temperature 98.4 [degF] Mariela Drake MD Work Phone: [facility] 05-13-2022 14:34-0400 SaO2% (BldA) [Mass fraction] 100 % Mariela Drake MD Work Phone: [facility] 05-09-2022 12:44-0400 Diastolic blood pressure 70 mm[Hg] William Del Castillo MD Work Phone: [facility] 05-09-2022 12:44-0400 Heart rate 50 /min William Del Castillo MD Work Phone: [facility] 05-09-2022 12:44-0400 SaO2% (BldA) [Mass fraction] 98 % William Del Castillo MD Work Phone: [facility] 05-09-2022 12:44-0400 Systolic blood pressure 124 mm[Hg] William Del Castillo MD Work Phone: [facility] 05-09-2022 11:51-0400 Body height 165.1 cm William Del Castillo MD Work Phone: [facility] 05-09-2022 11:40-0400 Body temperature 98.71 [degF] William Del Castillo MD Work Phone: [facility] 05-09-2022 11:40-0400 Respiratory rate 16 /min William Del Castillo MD Work Phone: [facility] 12-12-2021 23:57-0400 Diastolic blood pressure 67 mm[Hg] Aida Masters MD Work Phone: [facility] 12-12-2021 23:57-0400 Heart rate 74 /min Aida Masters MD Work Phone: [facility] 12-12-2021 23:57-0400 SaO2% (BldA) [Mass fraction] 96 % Aida Masters MD Work Phone: [facility] 12-12-2021 23:57-0400 Systolic blood pressure 109 mm[Hg] Aida Masters MD Work Phone: [facility] 12-12-2021 22:38-0400 Body temperature 98.4 [degF] Aida Masters MD Work Phone: [facility] 12-12-2021 22:38-0400 Respiratory rate 17 /min Aida Masters MD Work Phone: [facility] 12-10-2021 08:12-0400 Diastolic blood pressure 54 mm[Hg] Gorge Cleaning MD Work Phone: [facility] 12-10-2021 08:12-0400 Heart rate 76 /min Gorge Cleaning MD Work Phone: [facility] 12-10-2021 08:12-0400 Respiratory rate 18 /min Gorge Cleaning MD Work Phone: [facility] 12-10-2021 08:12-0400 SaO2% (BldA) [Mass fraction] 97 % Gorge Cleaning MD Work Phone: [facility] 12-10-2021 08:12-0400 Systolic blood pressure 101 mm[Hg] Gorge Cleaning MD Work Phone: [facility] 12-10-2021 05:18-0400 Body temperature 98.49 [degF] Gorge Cleaning MD Work Phone: [facility] Encounters Encounter Date Encounter Type Care Provider Facility Start: 05-13-2023 End: 05-13-2023 Emergency department patient visit PHYSICIAN ABDULAZIZ [facility] Work Phone: Start: 05-13-2022 End: 05-13-2022 [facility] Start: 05-13-2022 End: 05-13-2022 Emergency department patient visit Mariela Drake MD Work Phone: [facility] Start: 05-09-2022 End: 05-09-2022 Emergency department patient visit WILLIAM DEL CASTILLO [facility] Start: 05-09-2022 End: 05-09-2022 Emergency department patient visit William Del Castillo MD Work Phone: [facility] Start: 12-13-2021 End: 12-13-2021 Emergency department patient visit AIDA MASTERS [facility] Start: 12-12-2021 End: 12-13-2021 Emergency department patient visit Aida Masters MD Work Phone: [facility] Start: 12-10-2021 End: 12-10-2021 Emergency department patient visit GORGE CLEANING [facility] Start: 12-10-2021 End: 12-10-2021 Emergency department patient visit Gorge Cleaning MD Work Phone: [facility] Procedures Date Procedure Procedure [...] Detail Author Start: 03-31-2031 Tetanus vaccination TETANUS [facility] Start: 05-22-2022 End: 05-22-2022 Patient encounter procedure 05/22/2022 Office Visit Orthopaedics Luis Miguel MD [address] [place] [address] [place] [address] [facility] Start: 04-03-2022 Influenza vaccination [facility] Start: 08-08-2013 HIV screening HIV SCREENING DISCUSSION [facility] Start: 2009 Vaccination for human papillomavirus HPV VACCINE ADOL (1 - Male 2-dose series) [facility] Start: 2004 PNEUMOCOCCAL VACCINE SERIES (1 - PCV) PNEUMOCOCCAL VACCINE SERIES (1 - PCV) [facility] Start: 2003 COVID-19 VACCINE (#1) COVID-19 VACCINE (#1) [facility] Start: 1998 COVID-19 VACCINE (#1) COVID-19 VACCINE (#1) [facility] Start: 1998 Hepatitis C antibody, confirmatory test HEPATITIS C VIRUS SCREENING [facility] Start: 1998 Hepatitis C screening HEPATITIS C VIRUS SCREENING [facility] Patient Education Migraines in adults [facility] Work Phone: Patient referral [facility] Work Phone: Immunizations Immunization Date Immunization Notes Care Provider Fa cili 03-31-2021 tetanus toxoid, redu gil diphtheria toxoid, and acellular pertussis vaccine, adsorbed Gorge Cleaning MD Work Phone: [facility] 05-21-2009 influenza virus vaccine, unspecified formulation Gorge Cleaning MD Work Phone: [facility] Payers Date Payer Category Payer Self-pay 2023 Unknown [id number] 2021 Unknown [employer] [place] [id number] 2021-Present [address] [place] [address] [id number] 2021 Unknown [id number] 1998 Unknown [id number] 1998 Unknown [id number] 1998 Unknown [id number] 1998 Unknown [id number] Unknown [id number] Social History Date Type Detail Facility Start: 03-31-2021 [facility] Start: 03-31-2021 Cigarettes smoked current (pack per day) - Reported 0.5 [facility] Start: 03-31-2021 Tobacco use and exposure Smokeless tobacco non-user [facility] Start: 12-10-2021 End: 05-13-2022 Alcohol intake Current drinker of alcohol (finding) [facility] Start: 03-31-2021 History SDOH Alcohol Comment occassional [facility] Start: 2000 Sex Assigned At Not on file [facility] Start: 11-30-2021 End: 05-13-2022 Exposure to SARS-CoV-2 (event) Not sure [facility] History of tobacco use Cigarette Smoker [facility] Start: 05-13-2023 Tobacco smoking stat [facility] Smoker (finding) [facility] Start: 2000 Sex Assigned At Male F [facility] Clinical Notes 12-10-2021 to 05-13-2022 Yocasta Kim [...] time. VSS, RR is regular and unlabored. Dumas was steady on crutches. [facility] 05-13-2022 Emergency department Note At bedside to discharge patient. All paperwork gone over. Denies any questions at this time. VSS, RR is regular and unlabored. Dumas was steady on crutches. To ED with report of right foot pain. No improvement since last visit. States aggravated by standing on it at work. One dose of ibuprofen this morning. Reiterated the importance of appropriate use of NSAIDS for pain relief. documented in this encounter [facility] 05-13-2022 Hospital Discharg e instructions Mariela Drake MD - 05/13/2022 3:01 PM EDT Follow up with orthopedic surgery. Return to ED if we can further assist you. documented in this encounter [facility] 05-13-2022 Emergency department Note To ED with report of right foot pain. No improvement since last visit. States aggravated by standing on it at work. One dose of ibuprofen this morning. Reiterated the importance of appropriate use of NSAIDS for pain relief. [facility] 05-09-2022 Emergency department Note Bedside to apply RUDI wrap and air cast. Tolerated well. Voices an understanding of wearing.Work note and discharge papers provided. Denies concerns/questions. Ambulates out of ED with slight limp, respirs even and unlabored. [facility] 05-09-2022 Emergency department Note Bedside [...] Use Authorization (EUA) for the qualitative detection [id number] nucleic acid. CBC, EDIF, PLATELET Result Value [...] YELLOW YELLOW APPEARANCE, URINE CLEAR CLEAR Specific Bulger, Urine >1.030 (H) 1.010 - 1.025 PH [...] ankle and foot. documented in this encounter [facility] 05-09-2022 Physician Emergency department Note Images from the original note were not included. Emergency Department Report [facility]Y [facility]IC[facility] Service Date:.05/09/22 PCP: No primary [...] Use Authorization (EUA) for the qualitative detection [id number] nucleic acid. CBC, EDIF, PLATELET Result Value [...] YELLOW YELLOW APPEARANCE, URINE CLEAR CLEAR Specific Bulger, Urine >1.030 (H) 1.010 - 1.025 PH [...] orthopedics as an outpatient work excuse provided. [facility] Number of Diagnoses or Management Options Amount [...] . William Del Castillo MD 05/09/22 1316 [facility] 05-09-2022 Emergency department Note Ice applied to right ankle and foot. [facility] 12-12-2021 Emergency department Note Rudi wrap applied to R wrist. Discharge instructions reviewed and given to pt. Denies questions. Pt a&o, respirations even and unlabored. Exits Ed w/ steady gait. [facility] 12-12-2021 Emergency department Note Rudi wrap applied to R wrist. Discharge instructions reviewed and given to pt. Denies questions. Pt a&o, respirations even and unlabored. Exits Ed w/ steady gait. Ice Bag applied X-ray at bedside Emergency Department Report [facility] EMERGENCY [facility]ICINE Service Date:.12/12/21 PCP: [...] Use Authorization (EUA) for the qualitative detection [id number]-DbM-[id number] nucleic acid. CBC, EDIF, PLATELET Result Value [...] YELLOW YELLOW APPEARANCE, URINE CLEAR CLEAR Specific Bulger, Urine >1.030 (H) 1.010 - 1.025 PH [...] MD 12/12/21 2346 documented in this encounter [facility] 12-12-2021 Hospital Discharg e instructions [...] be sent through Care Everywhere.RICE: General Info ([place] Leonean)Hand Sprain ([place])Wrist Sprain ([place])documented in this encounter [facility] 12-12-2021 Emergency department Note Ice Bag applied [facility] 12-12-2021 Emergency department Note X-ray at bedside [facility] 12-12-2021 Physician Emergency department Note Emergency Department Report [facility] Service Date:.12/12/21 PCP: No primary [...] Use Authorization (EUA) for the qualitative detection urNEAT-RrS-3 nucleic acid. CBC, EDIF, PLATELET Result Value [...] YELLOW YELLOW APPEARANCE, URINE CLEAR CLEAR Specific Bulger, Urine >1.030 (H) 1.010 - 1.025 PH [...] . . Aida Masters MD 12/12/21 2346 [employer] [facility] Work Phone: 12-10-2021 Emergency department Note [...] complete dictation. Fabrice Dougherty DO 12/10/21 0807 [employer] [facility] Work Phone: 12-10-2021 Emergency department Note [...] or dietary supplements. documented in this encounter [facility] 12-10-2021 Emergency department Note Pt reports nausea still present. Dr. Cleaning aware. [facility] 12-10-2021 Hospital Discharg e instructions [...] attachments cannot be sent through Care Everywhere.Gastroenteritis ([place]an)documented in this encounter [facility] 12-10-2021 Emergency department Note Pt aware of UA order and states unable to urinate at this time. [facility] 12-10-[address] Cleaning at bedside. [facility] 12-10-2021 Emergency department Note Patient denies changes to medications, diet, or dietary supplements. [facility] Evaluation note Diagnosis Gastroenteritis- Primary Other and unspecified noninfectious gastroenteritis and colitis [facility] Diagnosis Sprain of right wrist, initial encounter- Primary Sprain of right hand, initial encounter [facility] Diagnosis Sprain of right foot, initial encounter- Primary Sprain of right ankle, unspecified ligament, initial encounter [facility] Diagnosis Injury of right foot, subsequent encounter- Primary [facility] noteNo assessment information [facility] Work Phone: Hospital Discharge instructions* Attachments The following attachments cannot be sent through Care Everywhere. * Ankle Sprain ([place]an) * RICE: General Info ([place]an) [facility] (n[facility]ative)* Consultation (Routine) - New Request Specialty Diagnoses / Procedures Referred By Contac t Referred To Contact Family Medicine Diagnoses Gastroenteritis Gorge Cleaning MD [address] [place] [address] Referral ID Status Reason Start Date Expiration Date V isits Requested Visits Authorized [id number] New Request 12/10/2021 01/04/2023 1 1 [facility] for referral (narrative)* Consultation (Urgent) - New Request Specialty Diagnoses / Procedures Referred By Contac t Referred To Contact Orthopaedic Surgery Diagnoses Sprain of right ankle, unspecified ligament, initial encounter Sprain of right foot, initial encounter William Del Castillo MD [address] [place] [address] Luis Miguel MD [address] [place] [address] [place] [address] Referral ID Status Reason Start Date Expiration Date V isits Requested Visits Authorized [id number] New Request 05/09/2022 06/03/2023 1 1 [facility] for referral (narrative)* Consultation (Routine) - New Request Specialty Diagnoses / Procedures Referred By Contac t Referred To Contact Orthopaedic Surgery Diagnoses Injury of right foot, subsequent encounter Mariela Drake MD [address] [place] [address] Referral ID Status Reason Start Date Expiration Date V isits Requested Visits Authorized [id number] New Request 05/13/2022 06/07/2023 1 1 T [facility] Summary Purpose Family History No [...] DATE CREATED AUTHOR AUTHOR'S AQUILINO ATION 07/15/2023 [facility] Care Teams (unrecognized sec tion [...] BE BASED ON THE PRIMARY CLINICAL RECORDS. [employer] [facility]. provides no warranty or guarantee of the accuracy or completeness of information in this document.
[2023-09-03] MEDS: LIDOCAINE HCL 10 ML, SODIUM BICARBONATE 1 MEQ INJ (14:25)
== END 2023-09-03 14:45 | disposition home or self-care (01) ==
LOC: US 13:25
PROVIDERS: Radiology Diagnostic Radiology; PCP Nurse Practitioner Family; Visit Provider Nurse Practitioner Family
DX: E04.1 Nontoxic single thyroid nodule (principal)
CPT/HCPCS: 10005; 88173

== ENCOUNTER 2023-09-28 08:24 | Outpatient (OUT) | payer OTHER, SELFPAY ==
--- NOTE | 2023-09-28 | XR_ITS ---
[address] [address] Patient Name: KALA WATTERS MRN: [id number] date: 2000 Sex: M Assigned Patient Location: Current Patient Location: Accession/Order Number: [id number] Exam Date: 09/28/2023 08:25 Report Date: 09/28/2023 15:29 At the request of: SOFÍA FLAHERTY Procedure: XR scapula RT PROCEDURE: XR scapula RT COMPARISON: 08/23/2023 HISTORY: RIGHT SCAPULA PAIN FINDINGS: BONES:Contour deformity of the inferior scapula with subtle lucency seen only on the scapular Y view. No new fracture or dislocation. SOFT TISSUES:Negative. No visible soft tissue swelling. EFFUSION:None visible. OTHER: Negative. XR/XR scapula RT IMPRESSION: Healing inferior/caudal scapular body fracture Electronically authenticated by: ADONIS MARTINEZ Date: 09/28/2023 15:29
--- OUTSIDE RECORDS SUMMARY | 2023-09-28 08:29 | XMS_ITS | CCD ---
Author Name Unknown Address [address] [place] [address] Organization [facility] Care Team Providers Care Director Agricultural Services Name Role Phone Unavailable Primary Care Provider UnavailGORGE Musa Attending Unavailable MARIELA DRAKE Attending Unavailable WILLIAM DEL CASTILLO Attending Unavailable AIDA MASTERS Attending Unavailable NO FAMILY, PHYSICIAN Primary Care Provider Unava ilable MD Aida William Emergency Provider [phone] VENESSA Hinkle Attending Provider Aida William Admitting Unavailable Aida William Attending Unavailable NO FAMILY, PHYSICIAN Primary Care Unavailable Elena Hinkle Admitting Unavailable Elena Hinkle Attending Unavailable Medications Current Medications Medication Drug Class(es) [...] Documented Da te Episodic/Chronic Headache; including migraine (3 sources) Migraine; Translations: [Migraine, unspecified, not intractable, [...] Test Name Value Interpretation Reference Range Facility [facility] 09-03-2023 L Specimen: [id number] Received: 09/04/23-1256 Status: MCKENNA Oswald Num: [id number] Spec Type: Cytology Subm Dr: Elena Hinkle, C UNIX DEVELOPER Tissues: A FNA SLIDES NOPATH (RT THYROID NOD) Procedures: Cyto Int and Re, PAPSTN/5 Age/ Patient Sex Location Account Attending Physician Christiano Caicedo 23/M LABELL [id number] Elena Hinkle CNP SPEC NUM: [id number] RECD: 09/04/23-1256 STATUS: MCKENNA RANKINQ NUM: [id number] SOFÍA: 09/03/23- SUBM DR: Elena Hinkle CNP ENTERED: 09/04/23-[address]: Viet,Lab Rodriguez Molina MD SPEC TYPE: Cytology DEPT: VINI NC ENTERED BY: [id number] RECV BY: [id number] ORDERED: Cyto Int and Re, PAPSTN/5 ORDERED: Cyto Int and Re, PAPSTN/5 Pathological Diagnosis Right thyroid nodule, FNA cytology: - Satisfactory for evaluation - The [facility] system is category 3: Atypia of undetermined significance - Dimorphic aspirate smears including a few small tissue fragment?like crowded follicular groups are admixed among the other more loosely arranged groups, suspicious for sampled follicular lesion - The ThinPrep smear also showing a few small and more disrupted groups, but also occasional more crowded follicular groups, and occasional reactive follicular cells with small nucleoli - Additional molecular triage assessment will also be requested at the reference laboratory with findings in supplemental to follow Gross Description Received in Cytolyt labeled with the patient's name, date of and Rt. Thyroid nodule per requisition is <1 ml pale pink slightly hazy fixed fluid. 1 Thin Prep slides are prepared. 4 smears for pap are additionally received. (CC/nh) Specimen: [id number] Received: 09/04/23-1256 Status: MCKENNA Rankinq Num: [id number] Spec Type: Cytology Subm Dr: Elena Hinkle CNP Tissues: A FNA SLIDES NOPATH (RT THYROID NOD) Procedures: Cyto Int and Re, PAPSTN/5 Patient: Christiano Caicedo [id number] (Continued) Specimen: [id number] Received: 09/04/23 (Continued) Signed (signatur e on file) Brielle Webb MD 09/07/23 0944 Specimen: [id number] Received: 09/04/23 Status: MCKENNA Oswald Num: [id number] Spec Type: Cytology Subm Dr: Elena Hinkle CNP Tissues: A FNA SLIDES CHINTAN (RT THYROID NOD) Procedures: Cyto Int and Re, PAPSTN/5 Patient: SaschaChristiano Fuentes [id number] (Continued) Specimen: [id number] Received: 09/04/23 (Continued) CPT Codes 54442 Specimen: Received: 09/04/23 Status: MCKENNA Oswald Num: [id number] Spec Type: Cytology Subm Dr: Elena Hinkle, REYNA Tissues: A FNA SLIDES NOPATH (RT THYROID NOD) Procedures: Cyto Int and Re, PAPSTN/5 Patient: Christiano Caicedo [id number] (Continued) Signed (signatur e on file) Brielle Webb MD 09/07/[address] [facility] [address] ANKLE RIGHT WITHOUT CONTR Flavio 05-09-2022 [...] unremarkable. IMPRESSION: No acute osseous abnormality. Normal [facility] CT Ankle - right WO contrast [...] unremarkable. IMPRESSION IMPRESSION: No acute osseous abnormality. [facility] Radiology Study observation (narrative) [employer] CT Ankle - right WO contrast Ordered By: Orlando Ceja on 05-09-2022 [facility] Work Phone: No Panel Informationon 05-09 IMPRESSION: [...] ankle. Soft tissue swelling about the midfoot. [facility] No Panel InformationOrdered By: Ghulam Aguilar on 05-09-2022 [facility] Work Phone: XR ANKLE RIGHT 3+ [...] Soft tissue swelling about the midfoot. Normal [facility] XR Ankle - right 3 [facility] 1 Radiology Study observation (narrative) [facility] XR FOOT RIGHT 3 VIEWSon XR FOOT RIGHT 3 VIEWS EXAMINATION: XR [...] Soft tissue swelling about the midfoot. Normal [facility] XR Foot - right 3 [facility] Radiology Study observation (narrative) [facility] XR HAND RIGHT 3+ VIEWSon 05- 13-2022 XR HAND RIGHT 3+ VIEWS EXAM: XR HAND RIG HT 3+ VIEWS HISTORY: hand pain COMPARISON: None. TECHNIQUE: X-ray FINDINGS: There is no fracture, dislocation, or other osseous abnormality. Joint spaces are preserved. No soft tissue calcifications. IMPRESSION: 1. Normal exam. Normal [facility] XR WRIST RIGHT 3 VIEWSon XR WRIST RIGHT 3 VIEWS EXAM: XR WRIST RIGHT 3 VIEWS HISTORY: right wrist pain COMPARISON: None. TECHNIQUE: X-ray FINDINGS: There is no fracture, dislocation, or other osseous abnormality. Joint spaces are preserved. No soft tissue calcifications. IMPRESSION: 1. Normal exam. Normal [facility] XR Hand - right 3 Viewson [...] tissue calcifications. IMPRESSION IMPRESSION: 1. Normal exam. [facility] Radiology Study observation (narrative) [facility] XR Wrist - right 3 Viewson 0 [...] IMPRESSION IMPRESSION: 1. Normal exam. [facility] Radiology Study observation (narrative) [facility] XR Wrist - right 3 ViewsOrde red By: Vinicius Sheffield on 12-12-2021 [facility] Work Phone: ALCOHOLon 12-10-2021 Ethanol [Mass/Vol] mg/dL Normal 0-10 [facility] Comment on above: Result Comment: INTOXICATION >80 MG/DL FATAL >400 MG/DL ALCOHOL (ETHANOL),BLOODon Ethanol [Mass/Vol] mg/dL [facility] Comment on above: INTOXICATION >80 MG/DL FATAL >400 MG/DL CBCon 12-10-2021 ABSOLUTE BAS 0.0 10*3/uL Normal 0.0-0.2 [facility] ABSOLUTE EOS 0.20 10*3/uL Normal 0.0-0.7 [facility] ABSOLUTE NEUTROPHIL COUNT 3.7 10*3/uL Normal 1.4-6.5 [facility] Basophils/100 WBC (Bld) 0.4 % Normal 0.0-2.0 [facility] DTYPE AUTO DIFF Normal [facility] Eosinophils/100 WBC (Bld) 2.9 % Normal 0.0-11.0 [facility] Lymphocytes (Bld) [#/Vol] 0.80 10*3/uL Low 1.2-3.4 [facility] Lymphocytes/100 WBC (Bld) 16.4 % Low 20.0-55.0 [facility] Monocytes (Bld) [#/Vol] 0.5 10*3/uL Normal 0.0-0.7 [facility] Monocytes/100 WBC (Bld) 9.9 % Normal 0.0-10.0 [facility] Neutrophils/100 WBC (Bld) 70.4 % Normal 37.0-75.0 [facility] Erythrocyte distribution width (RBC) [Ratio] 12.9 % Normal 11.5-14.5 [facility] Hematocrit (Bld) [Volume fraction] 43.0 % Normal 42.0-52.0 [facility] Hemoglobin (Bld) [Mass/Vol] 15.0 g/dL Normal 14.0-18.0 [facility] MCH (RBC) [Entitic mass] 29.5 pg Normal 26.0-35.0 [facility] MCHC (RBC) [Mass/Vol] 34.9 g/dL Normal 27.0-37.0 [facility] MCV (RBC) [Entitic vol] 84.5 fL Normal 80.0-100.0 [facility] Platelet mean volume (Bld) [Entitic vol] 7.3 fL Low 7.4-11.0 [facility] Platelets (Bld) [#/Vol] 147 10*3/uL Normal 130.0-400.0 [facility] RBC (Bld) [#/Vol] 5.10 10*6/uL Normal 4.0-6.1 [facility] WBC (Bld) [#/Vol] 5.2 10*3/uL Normal 3.6-11.0 [facility] CBC, EDIF, PLATELETon 2021 ABSOLUTE BASOPHIL COUNT 0.0 10*3/uL 0.0 - 0.2 10*3/uL [facility] Basophils/100 WBC (Bld) 0.4 % 0.0 - 2.0 % [facility] Differential cell count method Nom (Bld) AUTO DIFF % [facility] Eosinophils (Bld) [#/Vol] 0.20 10*3/uL 0.0 - 0.7 10*3/uL [facility] Eosinophils/100 WBC (Bld) 2.9 % 0.0 - 11.0 % [facility] Erythrocyte distribution width (RBC) [Ratio] 12.9 % 11.5 - 14.5 % [facility] Hematocrit (Bld) [Volume fraction] 43.0 % 42.0 - 52.0 % [facility] Hemoglobin (Bld) [Mass/Vol] 15.0 g/dL [facility] Interpretation and review of laboratory results Abnormal [facility] Lymphocytes (Bld) [#/Vol] 0.80 10*3/uL Low 1.2 - 3.4 10*3/uL [facility] Lymphocytes/100 WBC (Bld) 16.4 % Low 20.0 - 55.0 % [facility] MCH (RBC) [Entitic mass] 29.5 pg 26.0 - 35.0 PG [facility] MCHC (RBC) [Mass/Vol] 34.9 g/dL [facility] MCV (RBC) [Entitic vol] 84.5 fL [facility] Monocytes (Bld) [#/Vol] 0.5 10*3/uL 0.0 - 0.7 10*3/uL [facility] Monocytes/100 WBC (Bld) 9.9 % 0.0 - 10.0 % [facility] Neutrophils (Bld) [#/Vol] 3.7 10*3/uL 1.4 - 6.5 10*3/uL [facility] Neutrophils/100 WBC (Bld) 70.4 % 37.0 - 75.0 % [facility] Platelet mean volume (Bld) [Entitic vol] 7.3 fL Low [facility] Platelets (Bld) [#/Vol] 147 10*3/uL 130. 0 - 400.0 10*3/uL [facility] RBC (Bld) [#/Vol] 5.10 10*6/uL 4.0 - 6.1 10*6/uL [facility] WBC (Bld) [#/Vol] 5.2 10*3/uL 3.6 - 11.0 10*3/uL [facility] CHEM 7 FASTINGon 12-10-2021 Chloride [Moles/Vol] 106 mmol/L Normal 98-107 [facility] Comment on above: Result Comment: Emeka pelayo note: Triglyceride levels of 600mg/dL or higher may positively bias chloride results by approximately 2.1 mmol CO2 [Moles/Vol] 25 mmol/L Normal 22-30 [facility] Creatinine [Mass/Vol] 0.77 mg/dL Normal 0.7-1.2 [facility] EST. GFR, 161 ml/min/1.73sq.m [facility] EST. GFR,Non 133 ml/min/1.73sq.m [facility] GFR Information Average GFR for 20-29 years old = 116. [facility] Comment on above: Result Comment: Behaviorist javon Kidney disease, GFR = <60. Kidney failure, GFR = <15. The GFR estimate is not adjusted for extreme body surface area or acute process, nor has it been validated for women or ethnic groups other than and . Glucose [Mass/Vol] 109 mg/dL High 70-100 [facility] Comment on above: Result Comment: NORMAL <100 mg/dL PREDIABETES 101-126 mg/dL DIABETES 126 mg/dL or higher Potassium [Moles/Vol] 3.6 mmol/L Normal 3.5-5.1 [facility] Sodium [Moles/Vol] 137 mmol/L Normal 137-145 [facility] Urea nitrogen [Mass/Vol] 11 mg/dL Normal 7-20 [facility] CHEM 7 (LYTES,BUN,CREA,GLUC) on 12-10-2021 Chloride [Moles/Vol] 106 mmol/L [facility] Comment on above: Please note: Triglyc eride levels of 600mg/dL or higher may positively bias chloride results by approximately 2.1 mmol CO2 [Moles/Vol] 25 mmol/L [facility] Creatinine [Mass/Vol] 0.77 mg/dL [facility] GFR COMMENT Average GFR for 20-29 years old = 116. [facility] Comment on above: Chronic Kidney disea se, GFR = <60. Kidney failure, GFR = <15. The GFR estimate is not adjusted for extreme body surface area or acute process, nor has it been validated for women or ethnic groups other than and . GFR/1.73 sq M.predicted among blacks MDRD (S/P/Bld) [Vol rate/Area] 161 mL/min/{1.73_m2} ml/min/1.73sq. m [facility] GFR/1.73 sq M.predicted among non-blacks MDRD (S/P/Bld) [Vol rate/Area] 133 mL/min/{1.73_m2} ml/min/1.73sq. m [facility] Glucose post fast [Mass/Vol] 109 mg/dL High [facility] Comment on above: NORMAL <100 mg/dL PREDIABETES 101-126 mg/dL DIABETES 126 mg/dL or higher Interpretation and review of laboratory results Abnormal [facility] Potassium [Moles/Vol] 3.6 mmol/L [facility] Sodium [Moles/Vol] 137 mmol/L [facility] Urea nitrogen [Mass/Vol] 11 mg/dL [facility] CT ABDOMEN/PELVIS WITHOUT CO NTRASTon 12-10-2021 [...] OTHER: Negative. IMPRESSION: No acute abnormality Normal [facility] CT Abdomen and Pelvis WO con [...] OTHER: Negative. IMPRESSION IMPRESSION: No acute abnormality [facility] Radiology Study observation (narrative) [facility] CT Abdomen and Pelvis WO con trastOrdered By: David Mruphy on 12-10-2021 [facility] Work Phone: HEPATIC FUNCTION PANELon Albumin [Mass/Vol] 4.0 g/dL [facility] ALP [Catalytic activity/Vol] 48 U/L [facility] ALT [Catalytic activity/Vol] 16 U/L <50 IU/L [facility] AST [Catalytic activity/Vol] 24 U/L [facility] Bilirubin [Mass/Vol] 1.2 mg/dL [facility] Bilirubin.direct [Mass/Vol] 0.1 mg/dL [facility] Protein [Mass/Vol] 7.1 g/dL [facility] INFLUENZA A AND B, PCRon FLUAV and FLUBV Ag IF Nom (Unsp spec) Negative NEGATIVE [facility] FLUBV Ag IA Ql (Unsp spec) Negative NEGATIVE [facility] Comment on above: TESTING PERFORMED BY PHONG [facility] LACTATE, BLOODon 12-10-2021 Lactate [Moles/Vol] 0.8 mmol/L 0.7 - 2. 0 mmol/L [facility] LACTATE,BLOODon 12-10-2021 Lactate [Moles/Vol] 0.8 mmol/L Normal 0.7-2.0 [facility] LIPASEon 12-10-2021 Lipase [Catalytic activity/Vol] 36 U/L 23 - 300 U/L [facility] LIPASE,SERUMon 12-10-2021 LIPASE,SERUM 36 U/L Normal 23-300 [facility] LIVER PANELon 12-10-2021 Albumin [Mass/Vol] 4.0 g/dL Normal 2.9-5.3 [facility] ALP [Catalytic activity/Vol] 48 U/L Normal 38-126 [facility] ALT [Catalytic activity/Vol] 16 U/L Normal <50 [facility] AST [Catalytic activity/Vol] 24 U/L Normal 17-59 [facility] Bilirubin [Mass/Vol] 1.2 mg/dL Normal 0.2-1.3 [facility] Bilirubin.indirect [Mass/Vol] 0.1 mg/dL Normal 0-0.4 [facility] Protein [Mass/Vol] 7.1 g/dL Normal 6.3-8.2 [facility] NOVEL CORONAVIRUSon 12-11-19 22 NARRATIVE This test was performed using isothermal PHONG and has been approved as Emergency Use Authorization (EUA) for the qualitative detection [id number] nucleic acid. Normal [facility] SARS-CoV-2 (COVID-19) RNA PHONG+probe Ql (Unsp spec) Not detected Normal NOT DETECTED [facility] Comment on above: Result Comment: Nega [...] Use Authorization (EUA) for the qualitative detection [id number] nucleic acid. [facility] SARS-CoV-2 (COVID-19) RNA PHONG+probe Ql (Unsp spec) Not detected NOT DETECTED [facility] Comment on above: Negative results do [...] patient is critically ill or clinically deteriorating. [facility] No Panel Informationon 12-10 Interpretation and review of laboratory results Abnormal [facility] Portable XR Chest Views APon 12-10-2021 IMPRESSION: [...] No radiographic evidence for acute chest abnormality. [facility] Radiology Study observation (narrative) [facility] Portable XR Chest Views APOr dered By: Luis Stevenson on 12-10-2021 [facility] Work Phone: RAPID FLU Aon 12-10-2021 INFLUENZA A Negative Normal NEGATIVE [facility] INFLUENZA B Negative Normal NEGATIVE [facility] Comment on above: Result Comment: TEST ING PERFORMED BY PHONG RAPID TOX SCREEN,URINEon AMPHETAMINE Negative Normal NEGATIVE [facility] Comment on above: Result Comment: <500 ng/ml CUTOFF BARBITURATES Negative Normal NEGATIVE [facility] Comment on above: Result Comment: <200 ng/ml CUTOFF BENZODIAZEPINES Negative Normal NEGATIVE [facility] Comment on above: Result Comment: <150 ng/ml CUTOFF BUPRENORPHINE Negative Normal NEGATIVE [facility] Comment on above: Result Comment: <10 ng/ml CUTOFF CANNABINOIDS Positive Abnormal NEGATIVE [facility] Comment on above: Result Comment: <50 ng/ml CUTOFF *Unconfirmed Screening Result* Unconfirmed screening results are to be used only for medical treatment purposes. COCAINE Negative Normal NEGATIVE [facility] Comment on above: Result Comment: <150 ng/ml CUTOFF METHADONE Negative Normal NEGATIVE [facility] Comment on above: Result Comment: <200 ng/ml CUTOFF METHAMPHETAMINE Negative Normal NEGATIVE [facility] Comment on above: Result Comment: <500 ng/ml CUTOFF OPIATES Negative Normal NEGATIVE [facility] Comment on above: Result Comment: <100 ng/ml CUTOFF OXYCODONE Negative Normal NEGATIVE [facility] Comment on above: Result Comment: <100 ng/ml CUTOFF PHENCYCLIDINE Negative Normal NEGATIVE [facility] Comment on above: Result Comment: <25 ng/ml CUTOFF PROPOXYPHENE Negative Normal NEGATIVE [facility] Comment on above: Result Comment: <300 ng/ml CUTOFF TRICYCLIC ANTIDEPRESSANTS Negative Normal NEGATIVE [facility] Comment on above: Result Comment: <300 ng/ml CUTOFF TOXICOLOGY DRUG SCREEN, URIN Marcelino 12-10-2021 Amphetamine (U) [Mass/Vol] Negative NEGATIVE NG/ML [facility] Comment on above: <500 ng/ml CUTOFF Barbiturates Screen Ql (U) Negative NEGATIVE NG/ML [facility] Comment on above: <200 ng/ml CUTOFF Benzodiazepines Ql (U) Negative NEGATIVE NG/M L [facility] Comment on above: <150 ng/ml CUTOFF Benzoylecgonine Ql (U) Negative NEGATIVE NG/M L [facility] Comment on above: <150 ng/ml CUTOFF Buprenorphine Ql (U) Negative NEGATIVE NG/ML [facility] Comment on above: <10 ng/ml CUTOFF Cannabinoids Screen Ql (U) Positive Abnormal NEGATIVE NG/ML [facility] Comment on above: <50 ng/ml CUTOFF *Unconfirmed Screening Result* Unconfirmed screening results are to be used only for medical treatment purposes. Interpretation and review of laboratory results Abnormal [facility] Methadone Screen Ql (U) Negative NEGATIVE NG/ ML [facility] Comment on above: <200 ng/ml CUTOFF Methamphetamine (U) [Mass/Vol] Negative NEGATIVE NG/ML [facility] Comment on above: <500 ng/ml CUTOFF Opiates Screen Ql (U) Negative NEGATIVE NG/ML [facility] Comment on above: <100 ng/ml CUTOFF oxyCODONE Ql (U) Negative NEGATIVE NG/ML [facility] Comment on above: <100 ng/ml CUTOFF Phencyclidine Screen method >25 ng/mL Ql (U) Negative NEGATIVE NG/ML [facility] Comment on above: <25 ng/ml CUTOFF Propoxyphene+Norpropoxy phene Screen Ql (U) Negative NEGATIVE NG/ML [facility] Comment on above: <300 ng/ml CUTOFF Tricyclic antidepressants Screen Ql (U) Negative NEGATIVE NG/ML [facility] Comment on above: <300 ng/ml CUTOFF [facility] URINALYSIS, MACROon 12-11-19 22 Bilirubin Ql (U) Negative NEGATIVE [facility] Clarity (U) CLEAR CLEAR [facility] Color (U) YELLOW YELLOW [facility] Glucose Test strip (U) [Mass/Vol] Negative NEGATIVE mg/dl [facility] Hemoglobin Ql (U) Negative NEGATIVE [facility] Ketones (U) [Mass/Vol] TRACE Abnormal NEGATIVE mg/d l [facility] Leukocyte esterase Test strip Ql (U) Negative NEGATIVE [facility] Nitrite Ql (U) Negative NEGATIVE [facility] pH (U) 6.0 [pH] [facility] Protein Ql (U) TRACE Abnormal NEGATIVE mg/dl [facility] Specific gravity (U) [Rel density] >1.030 High [facility] Urobilinogen (U) [Mass/Vol] 1.0 mg/dL [facility] URINE MACROSCOPICon 12-11-19 22 Bilirubin Ql (U) Negative Normal NEGATIVE [facility] Clarity (U) CLEAR Normal CLEAR [facility] Color (U) YELLOW Normal YELLOW [facility] Glucose Ql (U) Negative Normal NEGATIVE [facility] pH (U) 6.0 [pH] Normal 5.0-7.0 [facility] URINE HEMOGLOBIN Negative Normal NEGATIVE [facility] URINE KETONE TRACE Abnormal NEGATIVE [facility] URINE LEUKOTEST Negative Normal NEGATIVE [facility] URINE NITRATES Negative Normal NEGATIVE [facility] URINE SPEC GRAVITY >1.030 High 1.010-1.025 [facility] URINE TOTAL PROTEIN TRACE Abnormal NEGATIVE [facility] Urobilinogen Qn (U) 1.0 {Saud'U}/dL Normal 0.2-1.0 [facility] URINE MICROSCOPICon 12-11-19 22 Bacteria LM.HPF (Urine sed) [#/Area] Negative Normal NEGATIVE [facility] CASTS NONE Normal NONE [facility] CRYSTAL NONE Normal NONE [facility] Epithelial cells LM Ql (Urine sed) NONE Normal [facility] Mucus Ql (Urine sed) 1+ Abnormal NEGATIVE [facility] URINE COMMENT CULTURE CRITERIA NOT MET, NO CULTURE PERFORMED. Normal [facility] URINE RBC'S 1 TO 5 Normal NEGATIVE [facility] URINE WBC'S Negative Normal NEGATIVE [facility] Bacteria LM.HPF (Urine sed) [#/Area] Negative NEGATIVE [facility] Casts LM.LPF (Urine sed) [#/Area] NONE NONE /LPF [facility] Crystals LM Nom (Urine sed) NONE NONE [facility] Epithelial cells LM Ql (Urine sed) NONE /HPF [facility] Mucus Ql (Urine sed) 1+ Abnormal NEGATIVE [facility] RBC LM.HPF (Urine sed) [#/Area] 1 TO 5 NEGATIVE /HPF [facility] Urine sediment comments LM Dillon (Urine sed) CULTURE CRITERIA NOT MET, NO CULTURE PERFORMED. [facility] WBC LM.HPF (Urine sed) [#/Area] Negative NEGATIVE /HPF [facility] XR CHEST AP PORTABLEon 12-10 XR CHEST AP PORTABLE EXAM: XR CHEST AP PORTABLE HISTORY: weakness COMPARISON: None available TECHNIQUE: Single frontal view chest x-ray FINDINGS: No lobar consolidation, large pleural effusions, pneumothorax, or acute bony abnormality. Cardiac size unremarkable. IMPRESSION: No radiographic evidence for acute chest abnormality. Normal [facility] Vital Signs Date Time Vital Sign Value Performing Clinician Facility 05-13-2023 09:09-0400 Body height 165.1 cm PHYSICIAN NO [facility] 05-13-2023 09:09-0400 Body temperature 98.4 [degF] PHYSICIAN NO [facility] 05-13-2023 09:09-0400 Body weight 74.45 kg PHYSICIAN NO [facility] 05-13-2023 09:09-0400 Diastolic blood pressure 94 mm[Hg] PHYSICIAN NO [facility] 05-13-2023 09:09-0400 Heart rate 64 /min PHYSICIAN NO [facility] 05-13-2023 09:09-0400 Respiratory rate 20 /min PHYSICIAN NO [facility] 05-13-2023 09:09-0400 SaO2% (BldA) [Mass fraction] 100 % PHYSICIAN NO [facility] 05-13-2023 09:09-0400 Systolic blood pressure 134 mm[Hg] PHYSICIAN NO [facility] 05-13-2022 15:12-0400 Diastolic blood pressure 76 mm[Hg] Mariela Drake MD Work Phone: [facility] 05-13-2022 15:12-0400 Heart rate 62 /min Mariela Drake MD Work Phone: [facility] 05-13-2022 15:12-0400 Respiratory rate 16 /min Mariela Drake MD Work Phone: [facility] 05-13-2022 15:12-0400 Systolic blood pressure 125 mm[Hg] Mariela Drake MD Work Phone: [facility] 05-13-2022 14:35-0400 Body height 165.1 cm Mariela Drake MD Work Phone: [facility] 05-13-2022 14:34-0400 Body temperature 98.4 [degF] Mariela Drake MD Work Phone: [facility] 05-13-2022 14:34-0400 SaO2% (BldA) [Mass fraction] 100 % Mariela Drake MD Work Phone: [facility] 05-09-2022 12:44-0400 Diastolic blood pressure 70 mm[Hg] William Del Castillo MD Work Phone: [facility] 05-09-2022 12:44-0400 Heart rate 50 /min William Del Castillo MD Work Phone: [facility] 05-09-2022 12:44-0400 SaO2% (BldA) [Mass fraction] 98 % William Del Castillo MD Work Phone: [facility] 05-09-2022 12:44-0400 Systolic blood pressure 124 mm[Hg] William Del Castillo MD Work Phone: [facility] 05-09-2022 11:51-0400 Body height 165.1 cm William Del Castillo MD Work Phone: [facility] 05-09-2022 11:40-0400 Body temperature 98.71 [degF] William Del Castillo MD Work Phone: [facility] 05-09-2022 11:40-0400 Respiratory rate 16 /min William Del Castillo MD Work Phone: [facility] 12-12-2021 23:57-0400 Diastolic blood pressure 67 mm[Hg] Aida Masters MD Work Phone: [facility] 12-12-2021 23:57-0400 Heart rate 74 /min Aida Masters MD Work Phone: [facility] 12-12-2021 23:57-0400 SaO2% (BldA) [Mass fraction] 96 % Aida Masters MD Work Phone: [facility] 12-12-2021 23:57-0400 Systolic blood pressure 109 mm[Hg] Aida Masters MD Work Phone: [facility] 12-12-2021 22:38-0400 Body temperature 98.4 [degF] Aida Masters MD Work Phone: [facility] 12-12-2021 22:38-0400 Respiratory rate 17 /min Aida Masters MD Work Phone: [facility] 12-10-2021 08:12-0400 Diastolic blood pressure 54 mm[Hg] Gorge Cleaning MD Work Phone: [facility] 12-10-2021 08:12-0400 Heart rate 76 /min Gorge Cleaning MD Work Phone: [facility] 12-10-2021 08:12-0400 Respiratory rate 18 /min Gorge Cleaning MD Work Phone: [facility] 12-10-2021 08:12-0400 SaO2% (BldA) [Mass fraction] 97 % Gorge Cleaning MD Work Phone: [facility] 12-10-2021 08:12-0400 Systolic blood pressure 101 mm[Hg] Gorge Cleaning MD Work Phone: [facility] 12-10-2021 05:18-0400 Body temperature 98.49 [degF] Gorge Cleaning MD Work Phone: [facility] Encounters Encounter Date Encounter Type Care Provider Facility Start: 09-03-2023 End: 09-03-2023 ambulatory Elena Hinkle Facility:[facility] Start: 09-03-2023 End: 09-03-2023 ambulatory CHASSIS DRIVER-C Elena Hinkle Work Phone: [facility] Work Phone: Start: 09-03-2023 End: 09-03-2023 Departed Referred CHASSIS DRIVER-C Elena Hinkle Work Phone: [facility] Start: 05-13-2023 End: 05-13-2023 Emergency department patient visit PHYSICIAN ABDULAZIZ DENTON [facility] Work Phone: Start: 05-13-2022 End: 05-13-2022 Emergency department patient visit MARIELA DRAKE [facility] Start: 05-13-2022 End: 05-13-2022 Emergency department patient visit Mariela Drake MD Work Phone: [facility] Start: 05-09-2022 End: 05-09-2022 Emergency department patient visit WILLIAM DEL CASTILLO [facility] Start: 05-09-2022 End: 05-09-2022 Emergency department patient visit William Del Castillo MD Work Phone: [facility] Start: 12-13-2021 End: 12-13-2021 Emergency department patient visit AIDA MASTERS [facility] Start: 12-12-2021 End: 12-13-2021 Emergency department patient visit Aida Masters MD Work Phone: [facility] Start: 12-10-2021 End: 12-10-2021 Emergency department patient visit GORGE CLEANING [facility] Start: 12-10-2021 End: 12-10-2021 Emergency department patient visit Gorge Cleaning MD Work Phone: [facility] Procedures Date Procedure Procedure Detail Performing Clinician [...] Detail Author Start: 03-31-2031 Tetanus vaccination TETANUS [facility] Start: 05-22-2022 End: 05-22-2022 Patient encounter procedure 05/22/2022 Office Visit Orthopaedics Luis Miguel MD [address] [place] [id number] [facility] Start: 04-03-2022 Influenza vaccination [facility] Start: 2013 HIV screening HIV SCREENING DISCUSSION [facility] Start: 2009 Vaccination for human papillomavirus HPV VACCINE ADOL (1 - Male 2-dose series) [facility] Start: 2004 PNEUMOCOCCAL VACCINE SERIES (1 - PCV) PNEUMOCOCCAL VACCINE SERIES (1 - PCV) [facility] Start: 2003 COVID-19 VACCINE (#1) COVID-19 VACCINE (#1) [facility] Start: 1998 COVID-19 VACCINE (#1) COVID-19 VACCINE (#1) [facility] Start: 1998 Hepatitis C antibody, confirmatory test HEPATITIS C VIRUS SCREENING [facility] Start: 1998 Hepatitis C screening HEPATITIS C VIRUS SCREENING [facility] Patient Education Migraines in adults [facility] Work Phone: Patient referral [facility] Work Phone: Immunizations Immunization Date Immunization Notes Care Provider Fa cility 03-31-2021 tetanus toxoid, redu gil diphtheria toxoid, and acellular pertussis vaccine, adsorbed Gorge Cleaning MD Work Phone: [facility] 05-21-2009 influenza virus vaccine, unspecified formulation Gorge Cleaning MD Work Phone: [facility] Payers Date Payer Category Payer Self-pay 2023 Unknown [id number] 2021 Unknown [employer] [place] [id number] 2021-Present [address] [place] [address] [id number] 2021 Unknown [id number] 1998 Unknown [id number] 1998 Unknown [id number] 1998 Unknown [id number] 1998 Unknown [id number] Unknown [id number] Unknown [id number] Social History Date Type Detail Facility Start: 03-31-[facility]21 [facility] Start: 03-31-2021 Cigarettes smoked current (pack per day) - Reported 0.5 [employer] Start: 03-31-2021 Tobacco use and exposure Smokeless tobacco non-user [facility] Start: 12-10-2021 End: 05-13-2022 Alcohol intake Current drinker of alcohol (finding) [facility] Start: 03-31-2021 History SDOH Alcohol Comment occassional [facility] Start: 1998 Sex Assigned At Not on file A [facility] Start: 11-30-2021 End: 05-13-2022 Exposure to SARS-CoV-2 (event) [facility] of tobacco use Cigarette Smoker [facility] Start: 05-13-2023 End: 05-13-2023 Tobacco smoking status NHIS Smoker (finding) [facility] Start: 1998 Sex Assigned At Male F [facility] Clinical Notes 12-10-2021 to 05-13-2022 Yocasta Kim RN - 05/13/2022 3:11 PM EDTAasia Kim RN - 05/13/2022 3:11 PM EDTCanaid Londono RN - 05/13/2022 2:36 PM EDTDischarge InstructionsCatseveriano Londono RN - 05/13/2022 2:36 PM EDT Note Date & Type Note Facility 05-13-2022 Emergency department Note At bedside to discharge patient. All paperwork gone over. Denies any questions at this time. VSS, RR is regular and unlabored. [place] was steady on crutches. [facility] 05-13-2022 Emergency department Note At bedside to discharge patient. All paperwork gone over. Denies any questions at this time. VSS, RR is regular and unlabored. [place] was steady on crutches. To ED with report of right foot pain. No improvement since last visit. States aggravated by standing on it at work. One dose of ibuprofen this morning. Reiterated the importance of appropriate use of NSAIDS for pain relief. documented in this encounter [facility] 05-13-2022 Hospital Discharg e instructions Mariela Drake MD - 05/13/2022 3:01 PM EDT Follow up with orthopedic surgery. Return to ED if we can further assist you. documented in this encounter [facility] 05-13-2022 Emergency department Note To ED with report of right foot pain. No improvement since last visit. States aggravated by standing on it at work. One dose of ibuprofen this morning. Reiterated the importance of appropriate use of NSAIDS for pain relief. [facility] 05-09-2022 Emergency department Note Bedside to apply RUDI wrap and air cast. Tolerated well. Voices an understanding of wearing.Work note and discharge papers provided. Denies concerns/questions. Ambulates out of ED with slight limp, respirs even and unlabored. [facility] 05-09-2022 Emergency department Note Bedside to apply RUDI wrap and air cast. Tolerated well. Voices an understanding of wearing.Work note and discharge papers provided. Denies concerns/questions. Ambulates out of ED with slight limp, respirs even and unlabored. Images from the original note were not included. Emergency Department Report [facility] Service Date:.05/09/22 PCP: No primary [...] Use Authorization (EUA) for the qualitative detection [id number] nucleic acid. CBC, EDIF, PLATELET Result Value [...] YELLOW YELLOW APPEARANCE, URINE CLEAR CLEAR Specific [place], Urine >1.030 (H) 1.010 - 1.025 PH [...] ankle and foot. documented in this encounter [facility] 05-09-2022 Physician Emergency department Note Images from the original note were not included. Emergency Department Report [facility] Service Date:.05/09/22 PCP: No primary [...] Use Authorization (EUA) for the qualitative detection cxPDII-WiZ-5 nucleic acid. CBC, EDIF, PLATELET Result Value [...] YELLOW YELLOW APPEARANCE, URINE CLEAR CLEAR Specific [place], Urine >1.030 (H) 1.010 - 1.025 PH [...] orthopedics as an outpatient work excuse provided. [facility] Number of Diagnoses or Management [...] . William Del Castillo MD 05/09/22 1316 [facility] 05-09-2022 Emergency department Note Ice applied to right ankle and foot. [facility] 12-12-2021 Emergency department Note Rudi wrap applied to R wrist. Discharge instructions reviewed and given to pt. Denies questions. Pt a&o, respirations even and unlabored. Exits Ed w/ steady gait. [facility] 12-12-2021 Emergency department Note Rudi wrap applied to R wrist. Discharge instructions reviewed and given to pt. Denies questions. Pt a&o, respirations even and unlabored. Exits Ed w/ steady gait. Ice Bag applied X-ray at bedside Emergency Department Report [facility] Service Date:.12/12/21 PCP: No primary [...] Use Authorization (EUA) for the qualitative detection sxQEWV-ScI-6 nucleic acid. CBC, EDIF, PLATELET Result Value [...] YELLOW YELLOW APPEARANCE, URINE CLEAR CLEAR Specific [place], Urine >1.030 (H) 1.010 - 1.025 PH [...] information. . . Aida Masters MD 12/12/21 2555 documented in this encounter [facility] 12-12-2021 Hospital Discharg e instructions Aida [...] be sent through Care Everywhere.RICE: General Info (Marshallese)Hand Sprain (Marshallese)Wrist Sprain (Marshallese)documented in this encounter [facility] 12-12-2021 Emergency department Note Ice Bag applied [facility] 12-12-2021 Emergency department Note X-ray at bedside [facility] 12-12-2021 Physician Emergency department Note Emergency Department Report [facility] Service Date:.12/12/21 PCP: [...] Use Authorization (EUA) for the qualitative detection hfXCET-OwI-[id number] nucleic acid. CBC, EDIF, PLATELET Result Value [...] YELLOW YELLOW APPEARANCE, URINE CLEAR CLEAR Specific [place], Urine >1.030 (H) 1.010 - 1.025 PH [...] . . Aida Masters MD 12/12/21 2346 [facility] Work Phone: 12-10-2021 Emergency department Note [...] complete dictation. Fabrice Dougherty DO 12/10/21 0807 [facility] Work Phone: 12-10-2021 Emergency department Note [...] 0807 Pt reports nausea still present. Dr. Cleanign aware. Pt aware of UA order and states unable to urinate at this time. Dr. Cleaning at bedside. Patient denies changes to medications, diet, or dietary supplements. documented in this encounter [facility] 12-10-2021 Emergency department Note Pt reports nausea still present. Dr. Cleaning aware. [facility] 12-10-2021 Hospital Discharg e instructions Gorge [...] attachments cannot be sent through Care Everywhere.Gastroenteritis (Marshallese)documented in this encounter [facility] 12-10-2021 Emergency department Note Pt aware of UA order and states unable to urinate at this time. [facility] 12-10-[address] Cleaning at bedside. [facility] 12-10-2021 Emergency department Note Patient denies changes to medications, diet, or dietary supplements. [facility] Evaluation note Diagnosis Gastroenteritis- Primary Other and unspecified noninfectious gastroenteritis and colitis documented [facility]* Diagnosis Sprain of right wrist, initial encounter- Primary Sprain of right hand, initial encounter documented in this encounter [facility]* Diagnosis Sprain of right foot, initial encounter- Primary Sprain of right ankle, unspecified ligament, initial encounter documented in this encounter [facility]* Diagnosis Injury of right foot, subsequent encounter- Primary documented in this encounter [facility] noteNo assessment information [facility] Work Phone: Hospital Discharge instructions* Attachments The following attachments cannot be sent through Care Everywhere. * Ankle Sprain (Marshallese) * RICE: General Info (Marshallese) [facility] ([facility]ative)* Consultation (Routine) - New Request Specialty Diagnoses / Procedures Referred By Contcain t Referred To Contact Family Medicine Diagnoses Gastroenteritis Gorge Cleaning MD [address] [place] [address] Referral ID Status Reason Start Date Expiration Date V isits Requested Visits Authorized [id number] New Request 12/10/2021 01/04/2023 1 1 [facility] Consultation (Urgent) - New Request Specialty Diagnoses / Procedures Referred By Contac t Referred To Contact Orthopaedic Surgery Diagnoses Sprain of right ankle, unspecified ligament, initial encounter Sprain of right foot, initial encounter William Del Castillo MD [address] [place] [address] Luis Miguel MD [address] [facility] [place] [address] Referral ID Status Reason Start Date Expiration Date V isits Requested Visits Authorized [id number] New Request 05/09/2022 06/03/2023 1 1 [facility] ([facility]ative)* Consultation (Routine) - New Request Specialty Diagnoses / Procedures Referred By Contac t Referred To Contact Orthopaedic Surgery Diagnoses Injury of right foot, subsequent encounter Mariela Drake MD [address] [place] [id number] Referral ID Status Reason Start Date Expiration Date V isits Requested Visits Authorized [id number] New Request 05/13/2022 06/07/2023 1 1 [facility] Summary Purpose Family History No Family History Records FoundNo Family History Records Found Advance Directives No Advanced Directives Records Found Advance Directive Response Recorded Date/ Time Advance Directives No May 13, 2023 9:37am Advance Directive Response Recorded Date/ Time Advance Directives No May 13, 2023 8:37am Chief Complaint and Reason for Visit Chief Complaint headache Chief Complaint Unknown Additional Source Comments Reason for Visit (unrecogniz [...] 25 mg, Intravenous, ONCE, 1 dose, On Thu12/10/21 [...] and content) DATE CREATED AUTHOR 05/27/2022 Olivier Bosch spistephanie DATE CREATED AUTHOR AUTHOR'S ORGANIZ ATION 09/07/2023 [facility] Care Teams (unrecognized sec tion and content) Team Status: Active Member Role Status Dates PHYSICIAN NO FAMILY Primary Care Provider Active Team Status: Inactive Member Role Status Dates PHYSICIAN NO FAMILY Primary Care Provider Active Aida William MD Emergency Provider Active Team Status: Inactive Member Role Status Dates Elena Hinkle NP-Azael Attending Provider Active Start: September 03, 2023 End: September 03, 2023 Goals (unrecognized section and content) Goals may be documented in a n alternate sectionGoals may be documented in an alternate section FOR RECORDS PERTAINING TO PATIENTS [...] BE BASED ON THE PRIMARY CLINICAL RECORDS. [facility] [facility]. provides no warranty or guarantee of the accuracy or completeness of information in this document.
== END 2023-09-28 08:25 | disposition home or self-care (01) ==
LOC: EC 08:24
PROVIDERS: PCP Nurse Practitioner Family; Visit Provider Orthopaedic Surgery
DX: S42.191D Fracture of other part of scapula, right shoulder, subsequent encounter for fracture with routine healing (principal)
CPT/HCPCS: 73010